=== PATIENT | female | born 1930 | race Caucasian/White ===

== ENCOUNTER → 2016-06-14 | Outpatient (CLI) | payer BC, MEDICARE ==
--- NOTE | 2016-06-15 07:19 | RAD ---
EXAM DESCRIPTION: XR HAND 3 OR MORE VIEWS CLINICAL HISTORY: RAISED ANTIBODY TITER COMPARISON: None available FINDINGS: Three views of the left hand were obtained period no acute fracture or malalignment is identified period there is joint space narrowing and productive change involving multiple interphalangeal joints. Similar changes are noted at the triscaphe and 1st CMC joints. No lytic or sclerotic bone lesion is identified period the bones appear demineralized period there is some calcification at the triangular fibrocartilage complex suggestive of chondrocalcinosis period IMPRESSION: Moderate polyarticular degenerative changes, but no erosion, subluxation or soft tissue swelling. Chondrocalcinosis involving the triangular fibrocartilage complex, also likely of degenerative origin. Electronically signed by: Declan Pulido DO 06/15/2016 07:17
--- NOTE | 2016-06-15 07:23 | RAD ---
EXAM DESCRIPTION: XR HAND 3 OR MORE VIEWS CLINICAL HISTORY: RAISED ANTIBODY TITER COMPARISON: None available FINDINGS: Three views of the right hand were obtained period there is no acute fracture or malalignment period joint space narrowing and productive change involves several interphalangeal joints, with similar changes noted at the triscaphe and 1st CMC joints. Periarticular soft tissue calcification is noted at the 1st and 2nd MCP joints period there questionable tiny erosions involving the bases of the proximal phalanges of the same fingers. Calcification involving the triangular fibrocartilage complex suggests chondrocalcinosis. The bones are diffusely demineralized period IMPRESSION: Moderate to moderately advanced polyarticular degenerative changes with tiny erosions in the bases of the proximal phalanges of the 2nd and 3rd fingers suggesting the possibility of superimposed inflammatory type arthritis. Chondrocalcinosis involving the triangular fibrocartilage complex and periarticular soft tissue calcification involving the 2nd and 3rd MCP joints, nonspecific. Findings may be related to underlying degenerative joint disease, but the possibility of gout or pseudogout should also be considered. Electronically signed by: Declan Pulido DO 06/15/2016 07:21
--- NOTE | 2016-06-15 07:24 | RAD ---
EXAM DESCRIPTION: XR KNEE 4 OR MORE VIEWS CLINICAL HISTORY: RAISED ANTIBODY TITER COMPARISON: None available FINDINGS: Three views of the left knee show no acute fracture or malalignment period there is mild medial joint space narrowing. No left knee joint effusion is identified period the soft tissues are unremarkable. There is no lytic or sclerotic bone lesion period IMPRESSION: Mild degenerative changes, otherwise unremarkable exam. Electronically signed by: Declan Pulido DO 06/15/2016 07:23
--- NOTE | 2016-06-15 07:26 | RAD ---
EXAM DESCRIPTION: XR KNEE 4 OR MORE VIEWS CLINICAL HISTORY: RAISED ANTIBODY TITER COMPARISON: None available FINDINGS: Three views of the right knee show no acute fracture or malalignment period there is no right knee joint effusion period vascular calcifications are noted period there is mild to moderate medial joint space narrowing period tiny osteophytes arise from the superior and inferior patellar poles. There is subtle chondrocalcinosis in the lateral compartment period IMPRESSION: Degenerative changes, worse in the medial compartment, but no acute right knee abnormality. Subtle chondrocalcinosis which may also be related to underlying degenerative joint disease, but gout or pseudogout should also be considered. Electronically signed by: Declan Pulido DO 06/15/2016 07:24
== END ==
LOC: RAD 15:12
PROVIDERS: ATTEND Internal Medicine Rheumatology
DX: R76.0 Raised antibody titer (principal); M11.261 Other chondrocalcinosis, right knee; M11.242 Other chondrocalcinosis, left hand; M11.241 Other chondrocalcinosis, right hand; M12.862 Other specific arthropathies, not elsewhere classified, left knee; M12.861 Other specific arthropathies, not elsewhere classified, right knee; M12.842 Other specific arthropathies, not elsewhere classified, left hand; M12.841 Other specific arthropathies, not elsewhere classified, right hand

== ENCOUNTER → 2016-09-07 | Outpatient (CLI) | payer BC, MEDICARE | END | disposition home or self-care (01) | LOC: GMAB 16:37 | PROVIDERS: ATTEND Family Medicine | DX: R06.02 Shortness of breath (principal) ==

== ENCOUNTER → 2016-11-07 | Outpatient (CLI) | payer MEDICARE, BC | END | disposition home or self-care (01) | LOC: GMAB 10:26 | PROVIDERS: ATTEND Family Medicine | DX: E55.9 Vitamin D deficiency, unspecified (principal) ==

== ENCOUNTER 2016-12-31 12:22 | Inpatient (IN) | payer BC, MEDICARE ==
[2016-12-31] MEDS ORDERED: SODIUM CHLORIDE 0.9% 1000ML 1,000 ML IVS ONE (13:00)
[2016-12-31] MEDS ORDERED: ACETAMINOPHEN 325 MG TAB PO ONE (13:00)
--- NOTE | 2016-12-31 13:59 | CT ---
PROCEDURE: Head HISTORY: ams Indication: Same as above Comparison: None Technique: CT of the head was done without intravenous contrast was done in the axial plane only This exam was performed according to our departmental dose-optimization program, which includes automated exposure control, adjustment of the mA and/or KV according to the patient's size and/or use of iterative reconstruction technique. FINDINGS: There is no intracranial hemorrhage, midline shift mass effect or acute focal infarct. There is prominence of the sylvian fissures and the cortical sulci reflecting age related volume loss. There is periventricular and deep white matter low attenuation, most likely related to small vessel white matter ischemic disease. Intracranial vascular calcifications are seen. If clinical concern exists regarding an acute ischemic/vascular pathology being responsible for patient's symptomatology, an MRI of the brain is more sensitive than the current study, in ruling out such a possibility. There is good shell/white matter differentiation. The ventricular system is normal. The mastoid air cells are unremarkable . The paranasal sinuses are unremarkable . There is no visualization of acute fractures involving the calvarium or the skull base. IMPRESSION: There is no acute intracranial abnormality. Age related and chronic involutional changes are seen. Electronically signed by: Eduardo Miles MD 12/31/2016 1:58 PM CDT Workstation: [id number]
--- NOTE | 2016-12-31 14:09 | RAD ---
PROCEDURE: XR CHEST 1 VIEW HISTORY: fever, ams, sob COMPARISON: 05/03/2012 TECHNIQUE: Single projection of the chest was done. FINDINGS: Surgical jessica are seen in the bilateral axillary regions. There is presence of diffuse infiltrates in the right hemithorax in a perihilar distribution and presence of thickening of the right horizontal fissure . There are no pneumothoraces or pleural effusions. The pulmonary vascularity is normal. The cardiomediastinal silhouette is stable. IMPRESSION: There is presence of diffuse infiltrates in the right hemithorax in a perihilar distribution and presence of thickening of the right horizontal fissure . Electronically signed by: Eduardo iMles MD 12/31/2016 2:07 PM CDT Workstation: [id number]
[2016-12-31] MEDS ORDERED: cefTRIAXone SODIUM 1 GM in SODIUM CHL 0.9% 50ML MIN-BAG+ 50 ML IVPB ONE ×2 (14:24→19:54)
[2016-12-31] MEDS ORDERED: AZITHROMYCIN IV 500 MG in SODIUM CHLORIDE 0.9% 250ML 250 ML IVPB ONE (14:25)
[2016-12-31] MEDS ORDERED: cefTRIAXone SODIUM 1 GM VIAL ONE (14:43)
[2016-12-31] MEDS ORDERED: SODIUM CHL 0.9% 50ML MIN-BAG+ 50 ML IVPB ONE (14:44)
--- NOTE | 2016-12-31 16:28 | HP ---
SUPERVISING PHYSICIAN: Krystian Iraheta MD CHIEF COMPLAINT: Dizziness, acute mental status change/ HISTORY OF PRESENT ILLNESS: Ms. Shields is an 86 year-old female patient who lives at home that presented to the Emergency Department tonight after she started having some dizziness throughout the day about 8 o'clock this morning along with some diarrhea and confusion. EMS was called to the house to transfer the patient to the Emergency Department after family noted the patient was continuing to deteriorate and was becoming weaker as well as she was running a fever reported as 102 at home. The family called her home health nurse who suggested that she go to the Emergency Department. Upon arrival of EMS, the patient reported that she was having significant shortness of breath and had apparently' been taking her breathing treatments over 10 times at home today. In the Emergency Department, laboratory studies completed showed she had a white count of 4.5, hemoglobin 10.9, hematocrit 33.5, platelet count 141,000, differential was currently without a left shift. 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 Chemistries showed normal electrolytes with potassium 3.8, glucose 99, potassium 8.7, magnesium 2.0. Liver functions showed to be within normal limits. Her CK was 17, BNP 489. Urinalysis showed just a trace of leukoesterase with a moderate amount of blood , 5 to 10 WBCs. Flu swab was negative for A and B. Blood cultures completed. Radiographic studies were completed showing she had a large infiltrate on the right side concerning for pneumonia. She also had a CT of the head without contrast and per radiology interpretation there was no mention of any acute intracranial abnormalities. On arrival to the Emergency Department, her vital signs showed she was febrile with a temperature of 102.3. She was given Tylenol that did result in return of temperature to normal baseline, 97.3. Given the patient's multiple comorbidities and findings on radiographic studies indicated developing pneumonia, right side, with the patient running a significant fever, antibiotics were initiated including azithromycin and Rocephin after blood cultures were completed and out, she will be admitted to the medical/surgical floor for further treatment and evaluation for developing right-sided pneumonia and acute mental status change. The patient is on chronic 02. PAST MEDICAL HISTORY: 1. Right and left breast cancer with bilateral mastectomies. 2. Hypertension. 3. History of gout. 4. History of gastroesophageal reflux disease. 5. History of chronic kidney disease, stage 1. 6. Type 2 diabetes on oral therapy. 7. Hyperlipidemia. 8. History of tobacco abuse. 9. History of deep venous thrombosis within the small vein of the left lower extremity. 10. 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 11. Congestive heart failure with mild diastolic dysfunction with last echocardiogram noted in October 2016 with greater than 55% ejection fraction. PAST SURGICAL HISTORY: 1. Right and left mastectomies. 2. Previous right subclavian port placement. 3. Hysterectomy. 4. Tonsillectomy as a child. 5. Adenoidectomy. 6. Cholecystectomy. 7. Left hip reduction and internal fixation. 8. Back surgery. 9. Partial thyroidectomy. CURRENT MEDICATIONS: 1. Eliquis 5 mg twice a day. 2. Allopurinol 300 mg every other day. 3. Metoprolol succinate 4.5 mg twice a day. 4. Norvasc 2.5 mg daily. 5. Januvia 50 mg daily. 6. Protonix 40 mg, 1 tablet daily. 7. Aspirin 81 mg at bedtime. 8. Amitriptyline 50 mg at bedtime. 9. Losartan 80 mg twice a day. 10. Prednisone 5 mg at noon. 11. Gabapentin 100 mg twice a day. 12. Amiodarone 200 mg at noon. ALLERGIES: PENICILLIN-G, LEVAQUIN. FAMILY HISTORY: Noncontributory. SOCIAL HISTORY: The patient lives in [place]. She is . She has no history of tobacco or alcohol usage. REVIEW OF SYSTEMS: CONSTITUTIONAL: As noted in history of present illness. Some general malaise with fever and chills. HEENT: Denies headaches, vision changes, syncopal episodes, sore throats. CHEST: Has noted in history of present illness, shortness of breath. CARDIOVASCULAR: Denies chest pains, palpitations. GASTROINTESTINAL: No reported constipation but as in history of present illness noted diarrhea but no nausea or vomiting. GENITOURINARY: Denies dysuria, hematuria, polyuria or other urinary symptoms. NEUROLOGICAL: As noted in history of present illness, she has had some dizziness and some acute mental status change or giddiness but no reported acute neurological deficits. PHYSICAL EXAMINATION: VITAL SIGNS: Initially in the Emergency Department temperature was 102.3, pulse 76, blood pressure 154/51, respirations 16, saturation 95% on room air. Admission weight 62.3 kg. GENERAL: On admission to the medical/surgical floor the patient appeared to be in no acute distress. She was alert and oriented, appears to be well- nourished, a little dehydrated. HEENT: Tympanic membranes are clear bilaterally. Oropharynx pink with mucous membranes being dry. No lesions noted. NECK: Supple, non-tender, full range of motion with no jugular venous distention. CHEST: Lungs diminished bilaterally, more so on the right than the left with just very faint rhonchi heard on the right lateral posterior aspect, no wheezing or rales noted. CARDIOVASCULAR: Regular rate and rhythm. ABDOMEN: Soft, non-tender, positive bowel sounds. EXTREMITIES: 1+ pitting edema on the left with maybe 2+ on the right which according to family and patient is normal for her and actually a little bit better than baseline in the past which is due secondary to the previous DVT that are present in each leg. NEUROLOGIC: Cranial nerves II through XII are grossly intact. Facial features were symmetrical. Extraocular movements were within normal limits. There was no nystagmus noted. No reported sensory or motor deficits. She does use a walker at home. LABORATORY: CBC showed a white count of 4.5, hemoglobin 10.9, hematocrit 33.5 with normal platelet count of 141,000. Differential showed to be without a left shift. Coagulation studies showed a slightly elevated PT of 20.4 with INR of 1.8 with PTT of 33.3. Chemistries showed normal electrolytes with potassium of 3.8, BUN 10, creatinine 0.76, glucose 99. Liver functions showed to be within normal limits. BNP elevated at 489. Troponin less than 0.02. Urinalysis showed a moderate amount of blood on dipstick with trace leukoesterase and microscopic revealed only 5 to 10 RBC, no bacteria, no WBCs. MICROBIOLOGY: Flu swabs for A and B were negative. She has 2 sets of blood cultures pending. Sputum cultures pending. RADIOLOGY: Single view chest x-ray in the Emergency Department showed presence of diffuse intertrochanteric in the right hemothorax in a perihilar distribution and presence of thickening of the right horizontal fissure per radiology interpretation. She also had a CT of the head without contrast and per radiology interpretation there were no acute intracranial abnormalities noted. ASSESSMENT: 1. Right middle and lower lobe pneumonia, community acquired in a immunocompromised patient with a decreased white count. 2. Early sepsis with a fever, shortness of breath secondary to #1. 3. Metabolic encephalopathy secondary to early sepsis secondary to developing community acquired pneumonia. 4. Normocytic normochromic anemia, likely due to chronic illness. 5. 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 Frias. 6. Chronic congestive heart failure with diastolic dysfunction, with etiology. likely secondary to mild form of hypertension with last echocardiogram in October 2016 showing an elevated PA systolic pressure and a mild diastolic dysfunction. 7. History of gout. 8. Type 2 diabetes mellitus on oral therapy. 9. History of bilateral breast cancer with mastectomies. 10. Hypertension. 11. Dehydration. PLAN: The patient will be admitted to the medical/surgical floor for continued treatment and evaluation for a developing right-sided pneumonia and early sepsis. She was given IV fluids in the Emergency Department and started on IV antibiotics to include azithromycin and Rocephin. It was noted prior to admission from the Emergency Department her IV infiltrated while she was having infusion of Rocephin and apparently of a large infiltration process covering the majority of her forearm which edges have been marked with markers showing area of erythema but no outright allergic reaction. She is allergic to penicillin. There was mention to possible allergy to cephalosporins but I think at this point it is just a local reaction due to the infiltrative process. She is also has an allergy to Levaquin, therefore, I think it is prudent to try to utilize cephalosporins including Rocephin once again on next dose with close observation. Certainly if she shows no signs or symptoms or systemic response, continue with her antibiotic therapy and await sputum cultures. We will start her on some IV fluids, slow given her history of congestive heart failure and monitor her I&Os closely. In regards to DVT prophylaxis, she is already on Eliquis and given that she has bilateral lower extremity DVTs, will forego any SCDs and encourage ambulation. Will utilize oxygen as she is 02 dependent and titrate to maintain 02 saturations that are adequate, at least greater than 92%. Will anticipate length of stay to be 2 to 3 days with reevaluation in the morning of chemistries and hematology. A lactic acid wasn't performed in the Emergency Department prior to initiation of antibiotic therapy from before the patient was admitted to the floor. The patient shows to be stable, therefore, we will forego collection of a lactic acid at this point. Should she show any change in condition, certainly we will again monitor lactic acids given that she has an underlying sepsis process but at this point, with fluids that were given in the Emergency Room the patient has shown an improvement in her mental status as well as maintaining blood pressure, a good heart rate, Tylenol for her fevers. Once stable, the patient certainly could be discharged to continue with outpatient treatment plan and have close clinical followup with Dr. Boyce, her primary care physician. Until discharge, we will continue to monitor her and treat appropriately. #[id number] [facility]
[2016-12-31] MEDS ORDERED: AZITHROMYCIN IV 500 MG VIAL IVPB ONE (16:56)
[2016-12-31] MEDS ORDERED: SODIUM CHLORIDE 0.9% 250ML 250 ML ONE (16:56)
[2016-12-31] MEDS ORDERED: MAGNESIUM HYDROXIDE 30 ML UD PO PRN (18:26)
[2016-12-31] MEDS ORDERED: ONDANSETRON INJ 4 MG/2 ML VIAL IV PRN (18:26)
[2016-12-31] MEDS ORDERED: ALBUTEROL SULFATE 2.5 MG/3 ML VIAL NEB PRN (18:26)
[2016-12-31] MEDS ORDERED: ACETAMINOPHEN 325 MG TAB PO PRN (18:26)
[2016-12-31] MEDS ORDERED: SODIUM CHLORIDE 0.9% (FLUSH) 10 ML SYG IV PRN (18:26)
--- NOTE | 2016-12-31 18:35 | PCM.CORE ---
Physician DVT/VTE - Nurse DVT Assessment & Total Each Risk Factor Represents 3 Points: Age over 75 years, Hx of DVT/PE Each Risk Factor is 1 Point: Obesity (BMI >25), Serious Lung disease (pnemonia < 1month, COPD, emphysema,etc) DVT Assessment Score: 8 - 5 or more Very High Risk Treatments: Early Ambulation *, Sequential Compression Device Pharmacological: Enoxaparin 40mg SQ Daily
[2016-12-31] MEDS ORDERED: ENOXAPARIN SODIUM 40 MG/0.4 ML SYG SUBCU ONE (19:36)
[2016-12-31] MEDS ORDERED: DEXTROSE 50% 25 GM/50 ML SYG IV PRN (19:43)
[2016-12-31] MEDS ORDERED: GLUCAGON INJ 1 MG VIAL SUBCU PRN (19:43)
[2016-12-31] MEDS ORDERED: IPRATROPIUM/ALBUTEROL 3 ML VIAL INH SCH (20:00)
[2016-12-31] MEDS ORDERED: AMITRIPTYLINE HCL 25 MG TAB ONE (20:59)
[2016-12-31] MEDS ORDERED: NON-FORMULARY MEDICATION 1 EA MIS (Apixaban [Eliquis] 5 MG) PO SCH (21:00)
[2016-12-31] MEDS ORDERED: AMITRIPTYLINE HCL 50 MG PO SCH (21:00)
[2016-12-31] MEDS ORDERED: ENOXAPARIN SODIUM 40 MG/0.4 ML SYG SUBCU SCH (21:00)
[2016-12-31] MEDS ORDERED: APIXABAN 2.5 MG TAB PO ONE (21:00)
[2016-12-31] MEDS: predniSONE 5 MG TAB PO SCH (21:13)
[2016-12-31] MEDS: ASPIRIN EC 81 MG TAB PO SCH (21:13)
[2016-12-31] MEDS: METOPROLOL SUCCINATE XL 25 MG TAB PO SCH (21:13)
[2016-12-31] MEDS: GABAPENTIN 100 MG CAP PO SCH (21:13)
[2016-12-31] MEDS: AMIODARONE HCL 200 MG TAB PO SCH (21:13)
[2016-12-31] MEDS: VALSARTAN 80 MG TAB PO SCH (21:13)
[2016-12-31] MEDS: INSULIN LISPRO 100 UNITS/ML PEN SUBCU SCH (21:14)
[2017-01-01] MEDS: PANTOPRAZOLE SODIUM IV 40 MG VIAL IV SCH (06:22)
[2017-01-01] MEDS: INSULIN LISPRO 100 UNITS/ML PEN SUBCU SCH ×4 (07:27→21:38)
[2017-01-01] MEDS ORDERED: POTASSIUM CHLORIDE 10 MEQ TAB PO ONE (07:39)
[2017-01-01] MEDS ORDERED: CALCIUM CARBONATE-VITAMIN D 500 MG TAB ONE (07:39)
--- NOTE | 2017-01-01 07:49 | RAD ---
Clinical History : Pneumonia , MAIN Exam : PA and lateral views of the chest 01/01/2017 7:00 AM CDT Comparisons : Portable AP view of the chest December 31, 2016 Findings : There is right lower lobe airspace disease with small bilateral pleural effusions. . The heart is stable in size. The mediastinal contours are normal in appearance. There are vascular calcifications along the aortic arch. The thoracic spine is age appropriate. The shoulders are unremarkable. Limited evaluation of the upper abdomen demonstrates no gross abnormalities. Impression: Stable right lower lobe airspace disease with small bilateral pleural effusions. Electronically signed by: Demetrio Dennison MD 01/01/2017 7:48 AM CDT
[2017-01-01] MEDS: IPRATROPIUM/ALBUTEROL 3 ML VIAL NEB SCH ×4 (08:52→19:46)
[2017-01-01] MEDS: VALSARTAN 80 MG TAB PO SCH ×2 (09:34→20:22)
[2017-01-01] MEDS: amLODIPine BESYLATE 5 MG TAB PO SCH (09:34)
[2017-01-01] MEDS: SITagliptin 50 MG TAB PO SCH (09:35)
[2017-01-01] MEDS: GABAPENTIN 100 MG CAP PO SCH ×2 (09:35→20:22)
[2017-01-01] MEDS: APIXABAN 2.5 MG TAB PO SCH ×2 (09:35→20:22)
[2017-01-01] MEDS: SODIUM CHLORIDE 0.9% (FLUSH) 10 ML SYG IV SCH ×2 (09:36→20:35)
[2017-01-01] MEDS: predniSONE 5 MG TAB PO SCH (12:21)
[2017-01-01] MEDS: AMIODARONE HCL 200 MG TAB PO SCH (12:21)
[2017-01-01] MEDS: METOPROLOL SUCCINATE XL 25 MG TAB PO SCH ×2 (12:27→20:28)
[2017-01-01] MEDS: IV SET AND CAP CHANGE INJ INJ SCH (12:28)
[2017-01-01] MEDS ORDERED: cefTRIAXone SODIUM 1 GM in SODIUM CHL 0.9% 50ML MIN-BAG+ 50 ML IVPB SCH (14:00)
[2017-01-01] MEDS ORDERED: SODIUM CHLORIDE 0.9% 250ML 250 ML ONE ×2 (15:20→15:30)
[2017-01-01] MEDS ORDERED: AZITHROMYCIN IV 500 MG VIAL IVPB ONE (15:21)
[2017-01-01] MEDS: methylPREDNISolone SODIUM SUC 125 MG/2 ML VIAL IV SCH ×2 (15:36→23:34)
[2017-01-01] MEDS: AZITHROMYCIN IV 500 MG in SODIUM CHLORIDE 0.9% 250ML 250 ML IVPB SCH (15:37)
--- NOTE | 2017-01-01 16:22 | PN ---
SUPERVISING PHYSICIAN: Krystian Iraheta MD DATE: 01/01/17 SUBJECTIVE: The patient is sitting in her hospital bed. She is visiting with family. She has no complaints of shortness of breath, chest pain, nausea, vomiting, diarrhea. She complains of a mild cough and she does get short of breath when she tries to get out of bed but other than that she has no shortness of breath at rest. OBJECTIVE: VITAL SIGNS: T-max 24 hours is 101.5 Pulse rate 68, blood pressure 160/57, respiratory rate 20. O2 saturation 92%. CHEST: Scattered rhonchi throughout. She does have an expiratory wheeze in the right upper and right lower lobe. CARDIAC: Regular rate and rhythm. ABDOMEN: Soft, non-tender, nondistended, bowel sounds are positive. EXTREMITIES: No cyanosis, clubbing, or edema. NEUROLOGICAL: She is awake, alert, and oriented x3. LABORATORY: WBC slightly down to 3.8. Hemoglobin and hematocrit are stable at 10.4 and 31.8. Platelet count 125,000. PT is 20.4, INR 1.8. PTT 33.3. Blood sugars have ranged between 127 and 146. Electrolytes are basically within normal limits. Urine culture is pending. Her preliminary blood cultures show no growth after 24 hours. Chest x-ray per radiology interpretation is stable, right lower lobe air-space disease with small bilateral pleural effusions. All other labs and films have been reviewed via the EMR. ASSESSMENT: 1. Right middle and lower lobe pneumonia, community acquired in a immunocompromised patient with a decreased white count. 2. Early sepsis with a fever, shortness of breath secondary to #1. 3. Metabolic encephalopathy secondary to early sepsis secondary to developing community acquired pneumonia. 4. Normocytic normochromic anemia, likely due to chronic illness. 5. 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 Frias. 6. Chronic congestive heart failure with diastolic dysfunction, with etiology. likely secondary to mild form of hypertension with last echocardiogram in October 2016 showing an elevated PA systolic pressure and a mild diastolic dysfunction. 7. History of gout. 8. Type 2 diabetes mellitus on oral therapy. 9. History of bilateral breast cancer with mastectomies. 10. Hypertension. 11. Dehydration. PLAN: We will continue present supportive care. I have ordered a chest x- ray and lab in the morning. I have also added a small amount of steroids that we can taper over the next few days. I have ordered an ambulation study for in the morning. She will continue on Zithromycin until her cultures are available. We will monitor the patient closely and followup as needed. Dr. Iraheta is the collaborating physician and available for consultation. #[id number] [facility]
[2017-01-01] MEDS ORDERED: AMITRIPTYLINE HCL 25 MG TAB ONE (19:36)
[2017-01-01] MEDS: AMITRIPTYLINE HCL 25 MG TAB PO SCH (20:23)
[2017-01-01] MEDS: ASPIRIN EC 81 MG TAB PO SCH (20:28)
[2017-01-02] MEDS: PANTOPRAZOLE SODIUM IV 40 MG VIAL IV SCH (06:37)
--- NOTE | 2017-01-02 07:22 | RAD ---
EXAM DESCRIPTION: Chest,2 Views CLINICAL HISTORY: pna COMPARISON: January 01, 2017 and an older exam from May 03, 2012 FINDINGS: The cardiomediastinal silhouette is unremarkable. Again seen is some ill-defined alveolar opacity in the mid and lower right lung, stable. There is mild blunting of the costophrenic angles bilaterally, also stable. Subsegmental atelectasis or scarring is noted in the left lung base. There is no new airspace consolidation. Surgical clips are noted in the chest wall bilaterally. No fracture or pneumothorax. IMPRESSION: Abnormal appearance of the lung bases partially related to artifact from superimposed soft tissues and/or scarring, but pneumonia or edema in one or both lung bases is suspected. Overall, no significant change from yesterday's exam. Small bilateral pleural effusions versus pleural thickening or scarring, stable from yesterday.. Electronically signed by: Declan Pulido MD 01/02/2017 7:21 AM CDT Workstation: [id number]
[2017-01-02] MEDS: methylPREDNISolone SODIUM SUC 125 MG/2 ML VIAL IV SCH ×3 (08:00→23:20)
[2017-01-02] MEDS: IPRATROPIUM/ALBUTEROL 3 ML VIAL NEB SCH ×4 (08:50→20:07)
[2017-01-02] MEDS: INSULIN LISPRO 100 UNITS/ML PEN SUBCU SCH ×4 (09:18→21:30)
[2017-01-02] MEDS: VALSARTAN 80 MG TAB PO SCH ×2 (09:20→21:28)
[2017-01-02] MEDS: GABAPENTIN 100 MG CAP PO SCH ×2 (09:24→21:28)
[2017-01-02] MEDS: amLODIPine BESYLATE 5 MG TAB PO SCH (09:24)
[2017-01-02] MEDS: SITagliptin 50 MG TAB PO SCH (09:24)
[2017-01-02] MEDS: APIXABAN 2.5 MG TAB PO SCH ×2 (09:24→21:28)
[2017-01-02] MEDS: METOPROLOL SUCCINATE XL 25 MG TAB PO SCH ×2 (10:06→21:29)
[2017-01-02] MEDS: SODIUM CHLORIDE 0.9% (FLUSH) 10 ML SYG IV SCH (10:07)
[2017-01-02] MEDS: ALLOPURINOL 300 MG TAB PO SCH (10:11)
[2017-01-02] MEDS: predniSONE 5 MG TAB PO SCH (11:50)
[2017-01-02] MEDS: AMIODARONE HCL 200 MG TAB PO SCH (11:50)
--- NOTE | 2017-01-02 13:37 | PN ---
SUPERVISING PHYSICIAN: Mahesh Schultz MD DATE: 01/02/17 SUBJECTIVE: The patient is sitting up in her hospital bed. She complains of some shortness of breath with exertion, but otherwise denies chest pain, nausea , vomiting, diarrhea. Her family is at bedside. We discussed at length her followup with her aws developer, which is next week, as well as her recent office visit with her tube fitter, Dr. Olosn. OBJECTIVE: VITAL SIGNS: Afebrile. Heart rate 66. Blood pressure 168/73. Respiratory rate 18. O2 saturation 94% on 2 liters nasal cannula. LUNGS: Somewhat diminished at the bases, but otherwise clear to auscultation at the apices. CARDIAC: Regular rate and rhythm. ABDOMEN: Soft, nontender, nondistended. Bowel sounds are positive. EXTREMITIES: No cyanosis, clubbing or edema. NEUROLOGIC: Awake, alert and oriented times three. LABORATORY: WBC 2.8, hemoglobin and hematocrit are stable at 10.4 and 31.9, platelet count 124. Blood sugars have run between 146 and 305. Electrolytes are within normal limits. Serum total protein 6.1, albumin 3. Preliminary urine culture shows gram negative rods. Preliminary blood cultures show no growth after 24 hours. Chest x-ray per radiologic interpretation shows abnormal appearance of the lung bases partially related to artifact from superimposed soft tissue and/or scarring, but pneumonia or edema in one or both lung bases is suspected. Overall, no significant changes from yesterday's exam with a small bilateral pleural effusion versus pleural thickening or scarring, stable from yesterday. All other labs and films have been reviewed via the EMR. ASSESSMENT: 1. Right middle and lower lobe pneumonia, community acquired in an immunocompromised patient with a decreased white count. 2. Early sepsis with a fever, shortness of breath secondary to #1. 3. Metabolic encephalopathy secondary to early sepsis secondary to developing community acquired pneumonia. 4. Normocytic normochromic anemia, likely due to chronic illness. 5. 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 Frias. 6. Chronic congestive heart failure with diastolic dysfunction, with etiology. likely secondary to mild form of hypertension with last echocardiogram in October 2016 showing an elevated PA systolic pressure and a mild diastolic dysfunction. 7. History of gout. 8. Type 2 diabetes mellitus on oral therapy. 9. History of bilateral breast cancer with mastectomies. 10. Hypertension. 11. Dehydration. PLAN: We will continue present supportive care. I have spoken to Dr. Olson's nurse practitioner and she recommended we continue with present treatment and to aggressively treat her pneumonia. The patient has an appointment a aws developer in [place] next week. I have spoken to the family at length about keeping that appointment. She is continuing on her Zithromax, but I have added Merrem for the urinary tract infection and we will await the sensitivities. Hopefully she can be discharged home on some Zithromax and an oral antibiotic for the urinary tract infection. We have encouraged to good pulmonary hygiene. I have ordered routine labs for in the morning as well as a chest x-ray. We will continue to monitor the patient closely and followup as needed. Dr. Schultz is the collaborating physician and available for consultation. #[id number] [facility]
[2017-01-02] MEDS ORDERED: SODIUM CHL 0.9% 50ML MIN-BAG+ 50 ML IVPB ONE (14:56)
[2017-01-02] MEDS ORDERED: MEROPENEM 1 GM VIAL IVPB ONE (14:56)
[2017-01-02] MEDS: MEROPENEM 1 GM in SODIUM CHL 0.9% 50ML MIN-BAG+ 50 ML IVPB SCH (15:11)
[2017-01-02] MEDS ORDERED: SODIUM CHLORIDE 0.9% 250ML 250 ML ONE (16:09)
[2017-01-02] MEDS ORDERED: AZITHROMYCIN IV 500 MG VIAL IVPB ONE (16:09)
[2017-01-02] MEDS: AZITHROMYCIN IV 500 MG in SODIUM CHLORIDE 0.9% 250ML 250 ML IVPB SCH (16:42)
[2017-01-02] MEDS: ASPIRIN EC 81 MG TAB PO SCH (21:28)
[2017-01-02] MEDS: diphenhydrAMINE HCL 50 MG/ML VIAL IV PRN (21:28)
[2017-01-02] MEDS: AMITRIPTYLINE HCL 25 MG TAB PO SCH (21:29)
[2017-01-03] MEDS ORDERED: SODIUM CHL 0.9% 50ML MIN-BAG+ 50 ML IVPB ONE (03:10)
[2017-01-03] MEDS ORDERED: MEROPENEM 1 GM VIAL IVPB ONE (03:11)
[2017-01-03] MEDS: MEROPENEM 1 GM in SODIUM CHL 0.9% 50ML MIN-BAG+ 50 ML IVPB SCH (03:15)
[2017-01-03] MEDS: diphenhydrAMINE HCL 50 MG/ML VIAL IV PRN (03:15)
[2017-01-03] MEDS: PANTOPRAZOLE SODIUM TAB 40 MG PO SCH (06:49)
--- NOTE | 2017-01-03 07:46 | RAD ---
EXAM DESCRIPTION: Chest,1 View CLINICAL HISTORY: pna COMPARISON: January 01, 2017 FINDINGS: The cardiomediastinal silhouette is unremarkable. There is new ill-defined alveolar opacity in the mid and lower right lung suspicious for pneumonia. Questionable trace amount of right pleural fluid. There is a probable small left-sided effusion with overlying atelectasis and/or consolidation in the left lung base, stable. Postoperative changes are noted in the chest wall bilaterally. There is no pneumothorax or acute fracture. IMPRESSION: New airspace consolidation in the mid and lower right lung consistent with provided history of pneumonia with a possible tiny right-sided effusion. Edema should also be considered. Abnormal appearance of the left lung base also represent either pneumonia or edema, stable. Electronically signed by: Declan Pulido MD 01/03/2017 7:28 AM CDT Workstation: [id number]
[2017-01-03] MEDS: INSULIN LISPRO 100 UNITS/ML PEN SUBCU SCH ×4 (08:54→21:55)
[2017-01-03] MEDS: SODIUM CHLORIDE 0.9% (FLUSH) 10 ML SYG IV SCH ×3 (08:56→21:00)
[2017-01-03] MEDS: methylPREDNISolone SODIUM SUC 125 MG/2 ML VIAL IV SCH ×2 (08:57→09:43)
[2017-01-03] MEDS: METOPROLOL SUCCINATE XL 25 MG TAB PO SCH ×2 (08:57→20:31)
[2017-01-03] MEDS: APIXABAN 2.5 MG TAB PO SCH ×2 (08:57→20:32)
[2017-01-03] MEDS: GABAPENTIN 100 MG CAP PO SCH ×2 (08:58→20:32)
[2017-01-03] MEDS: VALSARTAN 80 MG TAB PO SCH ×2 (08:58→20:31)
[2017-01-03] MEDS: SITagliptin 50 MG TAB PO SCH (08:58)
[2017-01-03] MEDS: amLODIPine BESYLATE 5 MG TAB PO SCH (08:58)
[2017-01-03] MEDS: IPRATROPIUM/ALBUTEROL 3 ML VIAL NEB SCH ×4 (08:59→20:07)
[2017-01-03] MEDS ORDERED: methylPREDNISolone SODIUM SUC 40 MG/ML VIAL IV SCH (09:30)
[2017-01-03] MEDS ORDERED: FUROSEMIDE INJ 40 MG/4 ML VIAL IV ONE (09:47)
--- NOTE | 2017-01-03 09:52 | PN ---
SUPERVISING PHYSICIAN: Mahesh Schultz MD DATE: 01/03/17 SUBJECTIVE: The patient is sitting up in the chair in her hospital room. Her is at the bedside. She denies any shortness of breath, nausea, vomiting , diarrhea or chest pain. We discussed her plan of care and that we will be changing her to oral antibiotics and she is to see her fusion juncture grinder next week. OBJECTIVE: VITAL SIGNS: Afebrile. Heart rate 62. Blood pressure 172/72. Respiratory rate 14. O2 sat dropped to 85% on room air this morning and is now 98% on 2 liters nasal cannula. LUNGS: Essentially clear to auscultation bilaterally, somewhat diminished at the bases. CARDIAC: Regular rate and rhythm. ABDOMEN: Soft, nontender, nondistended. Bowel sounds are positive. EXTREMITIES: No cyanosis, clubbing or edema. NEUROLOGIC: Awake, alert and oriented times three. LABORATORY: White count is improved to 4.1. Hemoglobin and hematocrit are slightly decreased to 9.5 and 29.4. Platelet count 117. Blood sugars have run between 185 and 305. Electrolytes are basically within normal limits. Urine C& S is back and shows E. coli and it is sensitive to Merrem, which she is presently on. Her preliminary blood cultures show no growth after 48 hours. Chest x-ray per radiologic interpretation shows new airspace consolidation in the mid and right lower lung consistent with provided history of pneumonia with a possible tiny right sided effusion. Edema should also be considered. Abnormal appearance of the left lung base also represents either pneumonia or edema that is stable. All other labs and films have been reviewed via the EMR. ASSESSMENT: 1. Right middle and lower lobe pneumonia, community acquired, in an immunocompromised patient with a decreased white count, but with slight improvement. 2. Early sepsis with a fever, shortness of breath secondary to #1, now improved.. 3. Urinary tract infection showing Escherichia coli that is presently sensitive to Merrem as well as Bactrim. She will be changed to p.o. Bactrim. 4. Metabolic encephalopathy secondary to early sepsis, now resolved. 5. Normocytic/normochromic anemia, most likely due to chronic disease process. 6. 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 Frias, and sap bods developer, Dr. Olson. 7. Chronic congestive heart failure with diastolic dysfunction, with etiology. likely secondary to mild form of hypertension with last echocardiogram in October 2016 showing an elevated PA systolic pressure and a mild diastolic dysfunction. 8. History of gout. 9. Type 2 diabetes mellitus on oral therapy. 10. History of bilateral breast cancer with mastectomies. 11. Hypertension. 12. Dehydration. PLAN: We will continue present supportive care. She is clinically much better. I have tapered her steroids. I have discontinued the Merrem and started her on po Bactrim. I have also changed her IV Zithromax to oral therapy. I will give her a dose of Lasix. I will repeat her lab and x-rays in the morning. Continue to encourage good pulmonary hygiene. Physical therapy is presently working with her and hopefully she can be discharged tomorrow. Dr. Schultz is the collaborating physician and available for consultation. #[id number] [facility]
[2017-01-03] MEDS ORDERED: FUROSEMIDE INJ 40 MG/4 ML VIAL ONE (09:56)
[2017-01-03] MEDS: SULFA/TRIMETH 800/160 (DS) TAB 1 EA TAB PO SCH ×2 (09:59→20:31)
[2017-01-03] MEDS: AMIODARONE HCL 200 MG TAB PO SCH (12:25)
[2017-01-03] MEDS: predniSONE 5 MG TAB PO SCH (12:29)
[2017-01-03] MEDS: methylPREDNISolone SODIUM SUC 40 MG/ML VIAL IV SCH (17:09)
[2017-01-03] MEDS: AZITHROMYCIN 250 MG TAB PO SCH (17:09)
[2017-01-03] MEDS: IV SET AND CAP CHANGE INJ INJ SCH (19:12)
[2017-01-03] MEDS: ASPIRIN EC 81 MG TAB PO SCH (20:32)
[2017-01-03] MEDS: AMITRIPTYLINE HCL 25 MG TAB PO SCH (20:32)
[2017-01-04] MEDS: methylPREDNISolone SODIUM SUC 40 MG/ML VIAL IV SCH ×2 (00:14→09:31)
--- NOTE | 2017-01-04 06:44 | RAD ---
EXAM: Two view chest. INDICATION: Pneumonia. COMPARISON: Chest x-ray: 01/03/17. FINDINGS: There are airspace opacities within the right middle and right lower lobe. The heart size is stable. Small pleural effusions are present. There is no pneumothorax. IMPRESSION: Multifocal pneumonia Electronically signed by: Russ Roque MD 01/04/2017 6:42 AM CDT Workstation: [id number]
[2017-01-04] MEDS: PANTOPRAZOLE SODIUM TAB 40 MG PO SCH (07:48)
[2017-01-04] MEDS ORDERED: POTASSIUM CHLORIDE 20 MEQ TAB PO ONE (07:57)
[2017-01-04] MEDS: INSULIN LISPRO 100 UNITS/ML PEN SUBCU SCH ×3 (08:02→17:36)
[2017-01-04] MEDS: IPRATROPIUM/ALBUTEROL 3 ML VIAL NEB SCH ×3 (08:55→16:28)
[2017-01-04] MEDS: ALLOPURINOL 300 MG TAB PO SCH (09:29)
[2017-01-04] MEDS: GABAPENTIN 100 MG CAP PO SCH (09:29)
[2017-01-04] MEDS: SULFA/TRIMETH 800/160 (DS) TAB 1 EA TAB PO SCH (09:29)
[2017-01-04] MEDS: VALSARTAN 80 MG TAB PO SCH (09:29)
[2017-01-04] MEDS: SITagliptin 50 MG TAB PO SCH (09:29)
[2017-01-04] MEDS: APIXABAN 2.5 MG TAB PO SCH (09:30)
[2017-01-04] MEDS: METOPROLOL SUCCINATE XL 25 MG TAB PO SCH (09:30)
[2017-01-04] MEDS: amLODIPine BESYLATE 5 MG TAB PO SCH (09:31)
[2017-01-04] MEDS: SODIUM CHLORIDE 0.9% (FLUSH) 10 ML SYG IV SCH (09:31)
[2017-01-04] MEDS ORDERED: POTASSIUM CHLORIDE 20 MEQ TAB ONE (09:35)
[2017-01-04] MEDS: AMIODARONE HCL 200 MG TAB PO SCH (12:25)
[2017-01-04] MEDS: predniSONE 5 MG TAB PO SCH (12:25)
[2017-01-04] MEDS: AZITHROMYCIN 250 MG TAB PO SCH (15:55)
[2017-01-04 18:43] VITALS: BP 132/67; TEMP 96.7; O2SAT 93
--- NOTE | 2017-01-05 09:23 | DS ---
SUPERVISING PHYSICIAN: Mahesh Schultz MD DISCHARGE DIAGNOSIS: 1. Right middle and lower lobe pneumonia, community acquired, in an immunocompromised patient with a decreased white count, but with slight improvement. 2. Early sepsis with a fever, shortness of breath secondary to #1, now improved.. 3. Urinary tract infection showing Escherichia coli that is presently sensitive to Merrem as well as Bactrim. She will be changed to p.o. Bactrim. 4. Metabolic encephalopathy secondary to early sepsis, now resolved. 5. Normocytic/normochromic anemia, most likely due to chronic disease process. 6. 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 Frias, and retail manager, Dr. Olson. 7. Chronic congestive heart failure with diastolic dysfunction, with etiology. likely secondary to mild form of hypertension with last echocardiogram in October 2016 showing an elevated PA systolic pressure and a mild diastolic dysfunction. 8. History of gout. 9. Type 2 diabetes mellitus on oral therapy. 10. History of bilateral breast cancer with mastectomies. 11. Hypertension. 12. Dehydration. HISTORY OF PRESENT ILLNESS: This is an 86-year-old female patient who lives at home that presented to the Emergency Department tonight after she had some dizziness with some diarrhea and confusion. She became weaker and weaker and was brought to the Emergency Room with a fever reported at 102 at home. She had significant shortness of breath and had been taking her breathing treatments approximately 10 times on the date of admission. Laboratory studies in the Emergency Room showed a white count of 4.5, hemoglobin 10.9, hematocrit 33.5, platelet count 141,000. There was no left shift. Coagulation studies showed an elevated PT of 20.4. She has a history of multiple pulmonary emboli as well as DVTs and she is on Eliquis at this time. Chemistries showed normal electrolytes. Her CK was 17, BNP 489. Urinalysis showed just a trace of leukocyte esterase with a moderate amount of blood, 5 to 10 WBCs. Flu swab was negative for A and B. Blood cultures were completed. She had a a CT of the head without contrast and per radiologic interpretation there was no mention of any acute intracranial abnormalities. She had a temperature in the Emergency Room of 102.3. Antibiotics initiated were azithromycin and Rocephin. She was admitted to the Medical/Surgical Floor for further treatment for developing right sided pneumonia and acute mental status change. The patient is on chronic 02. HOSPITAL COURSE: The patient progressively improved over the next few days. She was given aggressive pulmonary hygiene including her breathing treatments. Her IV infiltrated while the Rocephin was going. Her family was worried that she had an allergic reaction, so the Rocephin was discontinued, but the Zithromax was continued. She was also found to have a urinary tract infection. Her urine culture showed Escherichia coli. She was given two doses of Merrem. Once sensitivities were back, she was changed to p.o. Bactrim DS and continued on the azithromycin. She was also given additional dosing of steroids that were tapered down. Her retail manager, Dr. Olson, was contacted with her laboratory results for her CBC which included a low WBC that went as low as 2.8 and today is 4.1, platelet count dropped as low as 117, hemoglobin and hematocrit went down as low as 9.[address] Olson's office recommended she keep her usual appointment and continue her present treatment. Physical therapy was consulted during her stay and although she was weak initially, she met all physical therapy goals and her chest x-ray has stabilized. There was a question whether there was an improvement from yesterday's x-ray to today's x-ray and Dr. Declan Pulido was called and felt that her chest x-ray was stabilized from yesterday. The plan is to be discharged today. DISCHARGE PLAN: The patient's family was very concerned for her safety and although she met all her physical therapy goals and her laboratory studies are stable as well as her chest x-rays, they were very concerned with her going home. She did not meet Swing Bed criteria and they have decided to do private payment overnight until some sitters can be employed at their residence to help with the patient's care. She will be discharged out of the Acute Care setting and re-admitted to the hospital. She is in good condition. She is to resume her usual diet. Her physical therapy and home health will be continued after she leaves the hospital with [facility]. DISCHARGE MEDICATIONS: 1. Januvia. 2. Protonix. 3. Aspirin. 4. Amitriptyline. 5. Allopurinol. 6. Prednisone. 7. Gabapentin. 8. Amiodarone. 9. Amlodipine. 10. Metoprolol. 11. Eliquis. 12. Tessalon Perles. 13. Guaifenesin. 14. Prednisone taper. 15. Bactrim DS. 16. Azithromycin tablets. #[id number] [facility]
== END 2017-01-04 18:43 | disposition hospice, inpatient (51) | DRG 871 ==
LOC: ER 12:22 → MS 16:27
PROVIDERS: ADMIT Nurse Practitioner Family; ATTEND Nurse Practitioner Acute Care
DX: A41.9 Sepsis, unspecified organism (principal); J18.9 Pneumonia, unspecified organism; G93.41 Metabolic encephalopathy; N39.0 Urinary tract infection, site not specified; I50.32 Chronic diastolic (congestive) heart failure; I13.0 Hypertensive heart and chronic kidney disease with heart failure and stage 1 through stage 4 chronic kidney disease, or unspecified chronic kidney disease; B96.20 Unspecified Escherichia coli [E. coli] as the cause of diseases classified elsewhere; D63.8 Anemia in other chronic diseases classified elsewhere; M10.9 Gout, unspecified; E11.9 Type 2 diabetes mellitus without complications; E86.0 Dehydration; N18.1 Chronic kidney disease, stage 1; E78.5 Hyperlipidemia, unspecified; Z86.718 Personal history of other venous thrombosis and embolism; Z86.711 Personal history of pulmonary embolism; Z79.01 Long term (current) use of anticoagulants; Z85.3 Personal history of malignant neoplasm of breast; Z99.81 Dependence on supplemental oxygen; Z79.84 Long term (current) use of oral hypoglycemic drugs; Z87.891 Personal history of nicotine dependence; Z79.82 Long term (current) use of aspirin; Z79.52 Long term (current) use of systemic steroids; Z88.0 Allergy status to penicillin; Z88.1 Allergy status to other antibiotic agents

== ENCOUNTER 2017-01-04 19:03 | Inpatient (IN) | payer SELFPAY ==
--- NOTE | 2017-01-04 19:04 | HP ---
SUPERVISING PHYSICIAN: Mahesh Schultz M.D. CHIEF COMPLAINT: Weakness. HISTORY OF PRESENT ILLNESS: This is an 86 year-old female patient who was originally admitted to the hospital on 12/31/16 for right middle and lower lobe pneumonia community acquired as well as early sepsis with fever and shortness of breath, and a urinary tract infection. Her hospital course, although slowly , progressed without any issues except she had an infiltrated IV with Rocephin that was infiltrated into her right arm. She was found to have a urinary tract infection with Escherichia coli. She was on Azithromycin and Rocephin at one point and Rocephin was discontinued, and then Merrem was started until her urine cultures came back. The culture was sensitive to Bactrim, so she was started on p.o. Bactrim as well as p.o. Zithromax. She was also given a short course of Solu-Medrol and today she was discharged from the hospital. Her family had great concerns for her safety at home and although she did not qualify for Swing Bed admission, the patient will be admitted to the hospital due to weakness so the family can secure home care in addition to her physical therapy and home health services that are provided by [facility]. PAST MEDICAL HISTORY: 1. Right and left breast cancer with bilateral mastectomies. 2. Hypertension. 3. History of gout. 4. History of gastroesophageal reflux disease. 5. History of chronic kidney disease, stage 1. 6. Type 2 diabetes on oral therapy. 7. Hyperlipidemia. 8. History of tobacco abuse. 9. History of deep venous thrombosis within the small vein of the left lower extremity. 10. 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 11. Congestive heart failure with mild diastolic dysfunction with last echocardiogram noted in October 2016 with greater than 55% ejection fraction. PAST SURGICAL HISTORY: 1. Right and left mastectomies. 2. Previous right subclavian port placement. 3. Hysterectomy. 4. Tonsillectomy as a child. 5. Adenoidectomy. 6. Cholecystectomy. 7. Left hip reduction and internal fixation. 8. Back surgery. 9. Partial thyroidectomy. CURRENT MEDICATIONS: 1. Eliquis 5 mg twice a day. 2. Allopurinol 300 mg every other day. 3. Metoprolol succinate 4.5 mg twice a day. 4. Norvasc 2.5 mg daily. 5. Januvia 50 mg daily. 6. Protonix 40 mg, 1 tablet daily. 7. Aspirin 81 mg at bedtime. 8. Amitriptyline 50 mg at bedtime. 9. Losartan 80 mg twice a day. 10. Prednisone 5 mg at noon. 11. Gabapentin 100 mg twice a day. 12. Amiodarone 200 mg at noon. ALLERGIES: PENICILLIN-G, LEVAQUIN. FAMILY HISTORY: Noncontributory. SOCIAL HISTORY: The patient lives in [place]. She is . She has no history of tobacco or alcohol usage. REVIEW OF SYSTEMS: CONSTITUTIONAL: Negative for fever, fatigue or malaise. HEENT: Denies vision changes, sore throat, ear pain or sinus problems. RESPIRATORY: Complains of some shortness of breath at times and with exertion, and also complains of cough, but no wheezing. CARDIOVASCULAR: Denies chest pains, palpitations or tachycardia. GASTROINTESTINAL: Denies constipation, abdominal pain, nausea or vomiting. GENITOURINARY: Denies dysuria, hematuria or polyuria. NEUROLOGIC: Denies headache, dizziness, but does complain of some weakness, especially with ambulation and exertion. PHYSICAL EXAMINATION: VITAL SIGNS: She is afebrile, heart rate 70, blood pressure 132/67, respiratory rate 18, O2 sat is 93% on 2 liters nasal cannula. GENERAL: This is an 86 year-old female patient who is lying in her hospital bed. She is in no acute distress. HEENT: Normocephalic and atraumatic. Pupils are equal and reactive. Oropharynx is clear. NECK: Supple without mass. CHEST: Essentially clear to auscultation bilaterally. It is somewhat diminished at the bases. There is equal rise and fall of the chest with inspiration and expiration. CARDIOVASCULAR: Regular rate and rhythm. ABDOMEN: Soft, nondistended, non-tender. Bowel sounds are positive. EXTREMITIES: No cyanosis, clubbing or edema. NEUROLOGIC: She is awake, alert and oriented times three. LABORATORY: There are no labs and films to report at this time. ASSESSMENT: 1. Right middle and lower lobe pneumonia, community acquired, in an immunocompromised patient with a decreased white count, but with slight improvement. 2. Early sepsis with a fever, shortness of breath secondary to #1, now improved.. 3. Urinary tract infection showing Escherichia coli that is presently sensitive to Merrem as well as Bactrim. She will be changed to p.o. Bactrim. 4. Metabolic encephalopathy secondary to early sepsis, now resolved. 5. Normocytic/normochromic anemia, most likely due to chronic disease process. 6. 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 Frias, and shrimper, Dr. Olson. 7. Chronic congestive heart failure with diastolic dysfunction, with etiology. likely secondary to mild form of hypertension with last echocardiogram in October 2016 showing an elevated PA systolic pressure and a mild diastolic dysfunction. 8. History of gout. 9. Type 2 diabetes mellitus on oral therapy. 10. History of bilateral breast cancer with mastectomies. 11. Hypertension. 12. Dehydration. PLAN: We will admit the patient to the hospital. This is a private pay admission. The patient's family is currently obtaining nursing help at home in addition to [facility]. She is to have a followup appointment with Dr. Boyce next Monday and then a pulmonary appointment with her used car salesperson in [place] a week from Monday. We will restart her current home medications in addition to her Bactrim DS daily as well as her Zithromax that she will have for 3 more days. She will also continue her breathing treatments. She will have Tessalon Perles for her cough. We will continue her blood sugars and sliding scale insulin. Hopefully she can be discharged home tomorrow after they have obtained help at home. We will continue to monitor her closely and follow as needed. Dr. Schultz is the collaborating physician available for consultation. #[id number] [facility]
[2017-01-04] MEDS ORDERED: GLUCAGON INJ 1 MG VIAL SUBCU PRN (19:51)
[2017-01-04] MEDS ORDERED: DEXTROSE 50% 25 GM/50 ML SYG IV PRN (19:51)
[2017-01-04] MEDS ORDERED: AZITHROMYCIN 250 MG TAB PO SCH (20:00)
[2017-01-04] MEDS: SULFA/TRIMETH 800/160 (DS) TAB 1 EA TAB PO SCH (20:21)
[2017-01-04] MEDS: INSULIN LISPRO 100 UNITS/ML PEN SUBCU SCH (21:04)
[2017-01-04] MEDS: guaiFENesin ER TAB 600 MG TAB PO SCH (21:04)
[2017-01-04] MEDS: BENZONATATE PERLES 100 MG CAP PO SCH (21:04)
[2017-01-05 02:20] VITALS: O2SAT 96
[2017-01-05] MEDS ORDERED: predniSONE 20 MG TAB ONE (07:13)
[2017-01-05] MEDS: INSULIN LISPRO 100 UNITS/ML PEN SUBCU SCH ×3 (07:24→16:43)
[2017-01-05] MEDS: SULFA/TRIMETH 800/160 (DS) TAB 1 EA TAB PO SCH (08:00)
[2017-01-05] MEDS: guaiFENesin ER TAB 600 MG TAB PO SCH (08:00)
[2017-01-05] MEDS: BENZONATATE PERLES 100 MG CAP PO SCH ×2 (08:01→14:25)
[2017-01-05] MEDS ORDERED: predniSONE 10 MG TAB PO SCH (09:00)
[2017-01-05] MEDS ORDERED: ALBUTEROL SULFATE 2.5 MG/3 ML VIAL NEB PRN (09:15)
[2017-01-05] MEDS: IPRATROPIUM/ALBUTEROL 3 ML VIAL NEB SCH ×3 (09:23→17:43)
[2017-01-05 16:22] VITALS: BP 149/65; TEMP 98.1
--- NOTE | 2017-01-05 17:56 | DS ---
SUPERVISING PHYSICIAN: Mahesh Schultz M.D. DISCHARGE DIAGNOSIS: 1. Right middle and lower lobe pneumonia, community acquired, in an immunocompromised patient with a decreased white count, but with slight improvement. 2. Early sepsis with a fever, shortness of breath secondary to #1, now improved.. 3. Urinary tract infection showing Escherichia coli that is presently sensitive to Merrem as well as Bactrim. She will be changed to p.o. Bactrim. 4. Metabolic encephalopathy secondary to early sepsis, now resolved. 5. Normocytic/normochromic anemia, most likely due to chronic disease process. 6. 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 Frias, and patient service representative, Dr. Olson. 7. Chronic congestive heart failure with diastolic dysfunction, with etiology. likely secondary to mild form of hypertension with last echocardiogram in October 2016 showing an elevated PA systolic pressure and a mild diastolic dysfunction. 8. History of gout. 9. Type 2 diabetes mellitus on oral therapy. 10. History of bilateral breast cancer with mastectomies. 11. Hypertension. 12. Dehydration. DISCHARGE PLAN: The patient did very well on her short stay here in the hospital. She will be discharged home today in stable condition. At some point there was a concern because she had some blood-streaked sputum. Staff did not see it, so she has been encouraged to take a sputum cup home and she has been given an order for a sputum culture with gram stain if she can produce a sputum, and her has been directed to bring it to the hospital. She will continue with physical therapy and home health per [facility]'s home health services. She is to continue on her Prednisone taper, Bactrim DS and Azithromycin as instructed. She has an appointment with Dr. Boyce on Monday the at 10:00 AM. She has a cloud operations engineer appointment on Monday the in [place]. She is to return to the hospital for any further problems or complications. DISCHARGE MEDICATIONS: 1. Januvia. 2. Protonix. 3. Aspirin. 4. Amitriptyline. 5. Allopurinol. 6. Prednisone. 7. Gabapentin. 8. Amiodarone. 9. Amlodipine. 10. Metoprolol. 11. Eliquis. 12. Tessalon Perles. 13. Guaifenesin. 14. Prednisone taper. 15. Bactrim DS. 16. Azithromycin tablets. Dr. Schultz is the supervising physician and available for consultation. #[id number] [facility]
== END 2017-01-05 18:05 | disposition home health service (06) | DRG 871 ==
LOC: MS 19:03
PROVIDERS: ADMIT Nurse Practitioner Acute Care; ATTEND Nurse Practitioner Acute Care
DX: A41.9 Sepsis, unspecified organism (principal); J18.9 Pneumonia, unspecified organism; N39.0 Urinary tract infection, site not specified; I50.32 Chronic diastolic (congestive) heart failure; I13.0 Hypertensive heart and chronic kidney disease with heart failure and stage 1 through stage 4 chronic kidney disease, or unspecified chronic kidney disease; R53.1 Weakness; B96.20 Unspecified Escherichia coli [E. coli] as the cause of diseases classified elsewhere; D63.8 Anemia in other chronic diseases classified elsewhere; M10.9 Gout, unspecified; E11.22 Type 2 diabetes mellitus with diabetic chronic kidney disease; N18.1 Chronic kidney disease, stage 1; Z85.3 Personal history of malignant neoplasm of breast; Z79.84 Long term (current) use of oral hypoglycemic drugs; Z79.82 Long term (current) use of aspirin; Z79.899 Other long term (current) drug therapy; Z79.52 Long term (current) use of systemic steroids; Z88.0 Allergy status to penicillin; Z79.02 Long term (current) use of antithrombotics/antiplatelets; Z88.1 Allergy status to other antibiotic agents; Z86.718 Personal history of other venous thrombosis and embolism; Z86.711 Personal history of pulmonary embolism

== ENCOUNTER → 2017-01-05 | Outpatient (CLI) | payer BC, MEDICARE | END | disposition home or self-care (01) | LOC: GMA 19:26 | PROVIDERS: ATTEND Nurse Practitioner Acute Care | DX: J18.9 Pneumonia, unspecified organism (principal) ==

== ENCOUNTER 2017-02-04 22:35 | Inpatient (IN) | payer BC, MEDICARE ==
[2017-02-04] MEDS ORDERED: SODIUM CHLORIDE 0.9% 1000ML 1,000 ML IVS PRN (22:51)
[2017-02-04] MEDS ORDERED: PROMETHAZINE HCL INJ 12.5 MG in SODIUM CHLORIDE 0.9% 50ML 50 ML IVPB ONE (22:51)
[2017-02-04] MEDS ORDERED: SODIUM CHLORIDE 0.9% 50ML 50 ML ONE (23:02)
[2017-02-04] MEDS ORDERED: PROMETHAZINE HCL INJ 25 MG/ML VIAL ONE (23:02)
--- NOTE | 2017-02-04 23:10 | ED.PDOC ---
History of Present Illness - General Chief Complaint: Fever Stated Complaint: vomiting and fever Time Seen by Provider: 02/04/17 22:39 Source: RN notes reviewed, Vital Signs reviewed, family - and Daughter, old records Exam Limitations: clinical condition - Patient arouses but quickly falls back asleep and does not answer questions. - History of Present Illness Initial Comments: Family brings patient in with c/o fever, fatigue, chills and vomiting. reports that she got up about 4am this morning to go to the bathroom and was very unsteady on her feet and needed help to get back into bed. She then slept most of the day except when he woke her up to take her medications or go to the bathroom. He cooked dinner and she ate and seemed better. Shortly after she developed chills and a fever. He gave her aspirin and tried to bring her temp down with cool rags. Initially seemed to help but then her temp went back up to 103. She also became less responsive after dinner. Finally on the drive here she had an episode of vomiting. reports that yesterday she was in her usual state of health. She did get a flu shot and go to a family birthday alliance party last night. 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 Denies: short of breath, stridor, wheezing Cardiology: States: no symptoms reported Gastrointestinal/Abdominal: States: see HPI, vomiting Genitourinary: States: no symptoms reported Musculoskeletal: States: other - c/o her legs hurting Skin: States: no symptoms reported Neurological: States: see HPI Hematologic/Lymphatic: States: easy bleeding - On Eliquis for DVT and PE's All other Systems: No Change from Baseline Past Medical History (General) - Patient Medical History Hx Seizures: No Hx Stroke: No Hx Asthma: Yes Hx of COPD: No Hx Cardiac Disorders: No Hx Congestive Heart Failure: No Hx Pacemaker: No Hx Hypertension: Yes Hx Diabetes: Yes - Type 2 controlled w/ Januvia Hx Cancer: Yes - breast Hx MRSA: No Surgical History: Hysterectomy, other - Vaccination History Hx Influenza Vaccination: Yes - 02/03/17 Hx Pneumococcal Vaccination: Yes - 01/20/17 - Social History Hx Tobacco Use: Yes Hx Alcohol Use: No Hx Substance Use: No Hx Physical Abuse: No Hx Emotional Abuse: No Family Medical History - Family History Mother Family History: Unknown Physical Exam - Physical Exam General Appearance: Lethargic, Ill Appearing, Well Developed, Well Groomed Neck: supple, normal inspection Respiratory: no respiratory distress, no accessory muscle use, decreased breath sounds - LLL Cardiovascular/Chest: normal peripheral pulses, regular rate, rhythm, no gallop , systolic murmur, other - 1+ edema Gastrointestinal/Abdominal: normal bowel sounds, non tender, soft, no organomegaly Extremity: pedal edema - 1+ Neurologic: other - Arousable but quickly falls back asleep Skin Exam: diaphoresis Comments: Vital Signs 02/04/17 22:49 Temperature 103.3 F H Pulse Rate [ 104 H left] Respiratory 20 Rate Blood Pressure 176/74 [left] O2 Sat by Pulse 95 Oximetry Progress - Progress Progress: 02/05/17 00:11 Awake, alert and answering questions appropriately. Will start Bactrim PO since she is allergic to penicillins, cephalosporins, Merepenem and Quinalones. Discussed with Hospitalist, John Morataya. Will admit to hospital for UTI and early sepsis. - Results/Orders Results/Orders: Laboratory Tests 02/04/17 02/04/17 02/04/17 22:50 22:50 23:00 WBC 1.8 L* RBC 3.65 L Hgb 11.5 L Hct 35.3 L MCV 96.5 MCH 31.5 H MCHC 32.6 L RDW 18.5 H Plt Count 117 L MPV 8.6 Absolute Neuts (auto) Not Reportable Absolute Lymphs (auto) Not Reportable Absolute Monos (auto) Not Reportable Absolute Eos (auto) Not Reportable Neutrophils % Not Reportable Neutrophils % (Manual) 70.0 Lymphocytes % Not Reportable Lymphocytes % (Manual) 21.0 Monocytes % Not Reportable Monocytes % (Manual) 3.0 Eosinophils % Not Reportable Basophils % Not Reportable Band Neutrophils 5.0 Basophils 1.0 Toxic Granulation 1+ Platelet Estimate Decreased Anisocytosis 1+ Sodium 138 Potassium 3.7 Chloride 104 Carbon Dioxide 25 Anion Gap 12.7 BUN 23 H Creatinine 0.98 BUN/Creatinine Ratio 23.5 H Random Glucose 209 H Serum Osmolality 285.5 Lactic Acid 1.6 Calcium 9.1 Total Bilirubin 0.6 AST 69 H ALT 74 H Alkaline Phosphatase 139 H Serum Total Protein 6.8 Albumin 3.6 Globulin 3.2 Albumin/Globulin Ratio 1.1 Urine Color Urine Appearance Urine pH Ur Specific [place] Urine Protein Urine Glucose (UA) Urine Ketones Urine Blood Urine Nitrite Urine Bilirubin Urine Urobilinogen Ur Leukocyte Esterase Urine RBC Urine WBC Ur Epithelial Cells Urine Bacteria 02/04/17 23:30 WBC RBC Hgb Hct MCV MCH MCHC RDW Plt Count MPV Absolute Neuts (auto) Absolute Lymphs (auto) Absolute Monos (auto) Absolute Eos (auto) Neutrophils % Neutrophils % (Manual) Lymphocytes % Lymphocytes % (Manual) Monocytes % Monocytes % (Manual) Eosinophils % Basophils % Band Neutrophils Basophils Toxic Granulation Platelet Estimate Anisocytosis Sodium Potassium Chloride Carbon Dioxide Anion Gap BUN Creatinine BUN/Creatinine Ratio Random Glucose Serum Osmolality Lactic Acid Calcium Total Bilirubin AST ALT Alkaline Phosphatase Serum Total Protein Albumin Globulin Albumin/Globulin Ratio Urine Color Yellow Urine Appearance Cloudy H Urine pH 5.5 Ur Specific [place] 1.015 Urine Protein 100 H Urine Glucose (UA) 100 H Urine Ketones Negative Urine Blood Moderate H Urine Nitrite Positive H Urine Bilirubin Negative Urine Urobilinogen 0.2 Ur Leukocyte Esterase Large H Urine RBC 5-10 H Urine WBC >100 H Ur Epithelial Cells 0-1 Urine Bacteria 3+ H Departure - Departure Clinical Impression: Urinary tract infection Qualifiers: Urinary tract infection type: site unspecified Hematuria presence: with hematuria Qualified Code(s): N39.0 - Urinary tract infection, site not specified ; R31.9 - Hematuria, unspecified Leukocytopenia, unspecified Qualifiers: Leukopenia type: unspecified Qualified Code(s): D72.819 - Decreased white blood cell count, unspecified Time of Disposition: 00:18 Disposition: Admit Patient Condition: Poor Departure Forms: ED Discharge - Pt. Copy, Patient Portal Self Enrollment Referrals: Mane Boyce MD [Primary Care Provider] - 1-2 Weeks Home Medications: Ambulatory Orders Allopurinol 300 mg PO RIMA-OTH-DAY 12/31/16 Amitriptyline HCl 50 mg PO BEDTIME 12/31/16 Amlodipine Besylate [Norvasc] 2.5 mg PO DAILY 12/31/16 Apixaban [Eliquis] 5 mg PO BID 12/31/16 Aspirin [Aspirin EC] 81 mg PO BEDTIME 12/31/16 Gabapentin 100 mg PO BID 12/31/16 Metoprolol Succinate [Metoprolol Succinate ER] 12.5 mg PO BID 12/31/16 Pantoprazole Tablet [Protonix] 1 tablet PO PRN PRN 12/31/16 Prednisone 5 mg PO DAILY 12/31/16 SITagliptin [Januvia] 50 mg PO DAILY 12/31/16 Valsartan 80 mg PO BID 12/31/16 Benzonatate Perles [Tessalon Perles] 200 mg PO TID 01/05/17 guaiFENesin ER TAB [Mucinex Tab] 600 mg PO PRN PRN 02/04/17 Decision To Admit - Decistion To Admit Decision to Admit Reason: Admit from ER Decision to Admit Date: 02/05/17 Decision to Admit Time: 00:17
--- NOTE | 2017-02-04 23:37 | RAD ---
Examination: XR CHEST 1 VIEW dated 02/04/2017 10:51 PM CDT History: Fever w/ recent hx of pneumonia Comparison: 01/04/2017 Technique: Frontal view of the chest Findings: There remains faint opacities within the right lower lung zone with linear atelectasis in the midlung zone. Left lung is clear. No pneumothorax or pleural effusion. The cardiomediastinal silhouette is within normal limits. Surgical clips project over the right lateral chest wall and left axilla. Impression: Persistent right lower lung zone opacities, mildly improved as compared to the prior exam. Electronically signed by: Krystian Hunter MD 02/04/2017 11:36 PM CDT
[2017-02-05] MEDS ORDERED: ACETAMINOPHEN 500 MG TAB PO ONE (00:10)
[2017-02-05] MEDS ORDERED: SULFA/TRIMETH 800/160 (DS) TAB 1 EA TAB PO ONE (00:10)
[2017-02-05] MEDS ORDERED: TRIMETH IVPB ONE ×4 (00:14→20:18)
[2017-02-05] MEDS ORDERED: DEXTROSE IVPB ONE (00:14)
[2017-02-05] MEDS ORDERED: SULFA IVPB ONE ×4 (00:14→20:18)
--- NOTE | 2017-02-05 00:48 | HP ---
SUPERVISING PHYSICIAN: Mahesh Schultz M.D. CHIEF COMPLAINT: Vomiting with fever. HISTORY OF PRESENT ILLNESS: Ms. Shields is an 87 year-old female patient that presented to the Emergency Department with her family after she was complaining of fever, fatigue, chills and vomiting. Her noted that she had gotten up around 4:00 AM on the morning prior to admission to go to the bathroom and was very unsteady on her feet, needed help to get back into bed. After going back to bed, she slept most of the day only to awake to take her medications and go to the bathroom. He then cooked dinner and she ate a little bit, felt somewhat better but shortly after developed chills and fever. He then gave her an aspirin and tried to bring her temperature down as her temperature was noted to be elevated at 103. notes that she became less responsive after dinner after which time it was decided to bring her to the Emergency Department. On exiting the patient's family vehicle, the patient did have one episode of emesis. It was noted that per the patient's , the patient had been in her normal state of health in the last 24 hours. She had gotten a flu shot and next had gone to a family birthday republican the previous night before. The reports that she had a temperature up to 105 at home and again responded to aspirin minimally at which time the temperature had gone down to 103. In the Emergency Department on arrival, the patient's vital signs showed she was febrile with a T max of 103.3 with a rapid pulse of 104. Blood pressure was showing 108/96 with saturations on room air at 95%. Her laboratory studies showed that she had a neutropenic white count of 1.8 with a left shift with increased bands. Hemoglobin showed some anemia at 11.5 and 35.3 , however review of past medical records showed that she has chronic anemia. Coagulation studies showed an elevated PT at 3.4 and the patient is on Eliquis as she has a history of a previous deep venous thrombosis. Initially on laboratory studies her chemistries in the Emergency Department showed that she had normal electrolytes with potassium of 3.7 with slightly elevated BUN at 23 with normal creatinine. Liver functions were elevated, including AST, ALT and alkaline phosphatase. Lactic acid showed to be within normal limits at 1.6. Radiographic studies in the Emergency Department included a chest x-ray and per radiology interpretation of single view chest there was noted a persistent right lower lung zone opacities which were mildly improved as compared to previous exam on 01/04/17. It is of note that she had been recently treated in the hospital at [facility] for right middle and lower lobe pneumonia community acquired. The patient was given some fluids in the Emergency Department after which the patient had some improvement in her mentation. Urinalysis was then completed and this demonstrated that she had a significant urinary tract infection with positive nitrites and greater than 100 WBCs with 3+ bacteria. The patient has a significant history of allergies limiting antibiotic choices as she is allergic to both cephalosporins, Penicillins, Meropenem and fluoroquinolones. A review of her past history showed that she did have a urinary tract infection in the past with that culture being on 01/01/17 with Escherichia coli species that was sensitive to all but fluoroquinolones. Given the patient's significant urinary tract infection and decreased mentation, tachycardia, fever with concerns for early sepsis secondary to the urinary tract infection and her lengthy history of allergies to antibiotics, she was started on IV Bactrim and will now be admitted to the Medical/Surgical floor for continuation of treatment and further evaluation. PAST MEDICAL HISTORY: 1. Recent urinary tract infection with an Escherichia coli 12/2016. 2. Recent history of community acquired right middle and lower lobe pneumonia. 3. Bilateral breast cancer with bilateral mastectomies. 4. Hypertension. 5. History of gout. 6. History of gastroesophageal reflux disease. 7. History of chronic kidney disease stage I. 8. Type 2 diabetes mellitus on oral therapy. 9. Hyperlipidemia. 10. 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 11. Congestive heart failure with a mild diastolic dysfunction with last echocardiogram noted in 2017 in October to be greater than 55% for ejection fraction. PAST SURGICAL HISTORY: 1. Bilateral mastectomy. 2. Previous right subclavian port placement. 3. Hysterectomy. 4. Tonsillectomy as a child. 5. Adenoidectomy. 6. Cholecystectomy. 7. Left hip reduction and internal fixation. 8. Back surgery. 9. Partial thyroidectomy. CURRENT MEDICATIONS: 1. Guaifenesin 600 mg as needed. 2. Valsartan 80 mg twice daily. 3. Januvia 50 mg daily. 4. Prednisone 5 mg daily. 5. Protonix daily. 6. Metoprolol succinate extended release 12.5 mg twice daily. 7. Gabapentin 100 mg b.i.d. 8. Aspirin 81 mg at bedtime. 9. Eliquis 5 mg twice daily. 10. Norvasc 2.5 mg daily. 11. Amitriptyline 50 mg at bedtime. 12. Allopurinol 300 mg every other day. ALLERGIES: PENICILLIN G, LEVAQUIN, MEROPENEM, CEPHALOSPORINS. FAMILY HISTORY: Noncontributory. SOCIAL HISTORY: The patient lives in [place]. She is . The patient has no history of tobacco or alcohol use. REVIEW OF SYSTEMS: CONSTITUTIONAL: As noted in the History of Present Illness, positive for chills , fever and general malaise. HEENT: No nasal congestion, visual disturbances, headaches. RESPIRATORY: Positive for cough. Denies shortness of breath, stridors, wheezing. CARDIOVASCULAR: Denies any chest pains, exertional dyspnea, palpitations. GASTROINTESTINAL: As noted in the history of present illness, nausea and vomiting. GENITOURINARY: Denies any dysuria or hematuria. MUSCULOSKELETAL: Notes that she has general discomfort of both lower legs. NEUROLOGIC: As per History of Present Illness, initially in the Emergency Department she was lethargic, but on admission to the Medical/Surgical floor the patient was alert without any complaints of any neurologic deficits, syncopal episodes or headaches. 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 PHYSICAL EXAMINATION: VITAL SIGNS: Temperature 103.3, pulse 104, blood pressure 108/96, respirations 20, satting 94% on nasal cannula at 2 liters at rest. Weight 60.5 kg. GENERAL: The patient on admission assessment shows to be alert. She is ill- appearing, but shows to be in no acute distress. She is well groomed. Does look somewhat dehydrated. HEENT: Tympanic membranes are clear bilaterally. Oropharynx was pink with mucosal membranes being dry. NECK: Supple, non-tender with full range of motion. There is no jugular venous distention. CHEST: Lungs are fairly clear with some decreased breath sounds to the left lower lobe but no rhonchi, wheezing or rales. No accessory muscles noted. CARDIOVASCULAR: Regular rate and rhythm without appreciable murmurs or gallops. There is note of a systolic murmur. ABDOMEN: Soft, non-tender. Positive bowel sounds. EXTREMITIES: No clubbing or cyanosis. She does have a trace of edema bilaterally. Bilateral pedal edema trace to 1+. NEUROLOGIC: She is alert and oriented times three. Facial features were symmetrical. Extraocular movements are within normal limits. Cranial nerves II -XII are grossly intact. There was no detectable neurologic or sensory deficit. LABORATORY: White count was neutropenic at 1.8 with hemoglobin 11.3, hematocrit 35.3 with platelet count 117,000. RBC indices show a microcytic hyperchromic presentation. Differential does show a left shift with increased band count. Chemistries, initially electrolytes showed to be within normal limits with potassium 3.7, BUN 23, creatinine 0.98 with glucose 209, calcium 9.1 , lactic acid 1.6. Total bilirubin 0.6 with AST elevated at 69, ALT elevated at 74, alkaline phosphatase as well at 139. BNP was 451. Urinalysis showed a moderate amount of blood, positive nitrites with large amount of leukocyte esterase with microscopic showing 5 to 10 RBCs, greater than 100 WBCs, 0 to 1 epithelials with 3+ bacteria. MICROBIOLOGY: Blood cultures are pending. Sputum pending. Urine culture pending. RADIOLOGY: Chest x-ray in the Emergency Department per radiology interpretation showed a persistent right lower lobe lung zone opacity mildly improved as compared to previous exam on 01/04/17. ASSESSMENT: 1. Urinary tract infection with the patient having been recently treated within the last month for urinary tract infection with Escherichia coli. 2. Early sepsis with slightly increased heart rate, temperature and acute mental status change likely secondary to #1 with concerns for continued left lower lobe pneumonia as noted on initial chest x-ray. 3. Neutropenia with a left shift likely secondary to #1 with a history of having low normal white counts. 4. Hyperchromic microcytic anemia likely secondary to chronic illness. 5. Type 2 diabetes mellitus on oral therapy. 6. Chronic renal insufficiency with some exacerbation of of prerenal azotemia secondary to #1. 7. Elevated liver functions, uncertain etiology at this point. 8. Chronic congestive heart failure with a grade 1 diastolic dysfunction and an ejection fraction of approximately greater than 55% as noted on last echocardiogram in October 2016. 9. 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 10. Acute mental status change secondary to above sepsis and urinary tract infection showing improvement with IV fluids and initiation of antibiotic therapy. PLAN: The patient will be admitted to the hospital for initiation of antibiotic therapy. Given that she has multiple allergies to a large population of antibiotic classes, will start her on Bactrim as she is currently not indicating allergies to this as well as her last culture results showed a Klebsiella pneumoniae species that was sensitive to Bactrim. Fluid status is to be monitored closely as she did get a liter of fluids, normal saline in the Emergency Department. This will be followed-up with continued fluids, half normal saline with 20 of potassium at 80 an hour. Will resume her home medications once they are updated and verified in the electronic medical records. She will be on DVT prophylaxis as per protocol. Her Bactrim will be scheduled every 12 hours with close monitoring of her renal function given her advanced age and decreasing creatinine clearance. Will anticipate length of stay to be at least 1 to 3 days. Until then continue to monitor and treat appropriately. #[id number] [facility]
[2017-02-05] MEDS ORDERED: DEXTROSE 50% 25 GM/50 ML SYG IV PRN (00:50)
[2017-02-05] MEDS ORDERED: SODIUM CHLORIDE 0.9% (FLUSH) 10 ML SYG IV PRN (00:50)
[2017-02-05] MEDS ORDERED: GLUCAGON INJ 1 MG VIAL SUBCU PRN (00:50)
[2017-02-05] MEDS ORDERED: DEXTROSE 5% 250ML 250 ML ONE (01:13)
[2017-02-05] MEDS: SULFA/TRIMETH INJ 800/160 PER 10 ML in DEXTROSE 5% 250ML 250 ML IVPB SCH ×2 (01:15→12:35)
[2017-02-05] MEDS: IV SET AND CAP CHANGE INJ INJ SCH (01:30)
[2017-02-05] MEDS ORDERED: AZITHROMYCIN IV 500 MG in SODIUM CHLORIDE 0.9% 250ML 250 ML IVPB SCH (01:30)
[2017-02-05] MEDS ORDERED: SODIUM CHLORIDE 0.9% 250ML 250 ML ONE (03:37)
[2017-02-05] MEDS ORDERED: AZITHROMYCIN IV 500 MG VIAL IVPB ONE (03:38)
[2017-02-05] MEDS: AZITHROMYCIN IV 500 MG in SODIUM CHLORIDE 0.9% 250ML 250 ML IVPB SCH (04:05)
[2017-02-05] MEDS ORDERED: POTASSIUM CHLORIDE 20 MEQ TAB PO ONE (08:14)
[2017-02-05] MEDS: INSULIN LISPRO 100 UNITS/ML PEN SUBCU SCH ×4 (08:28→21:00)
--- NOTE | 2017-02-05 09:03 | PCM.CORE ---
Physician DVT/VTE - Prophylaxis Currently: Patient already on anticoagulation therapy - [place] - Nurse DVT Assessment & Total Each Risk Factor Represents 3 Points: Age over 75 years, Hx of DVT/PE, Family Hx thrombosis, Medical PT with Hx of NH, CHF, Severe infection/sepsis Each Risk Factor Represents 2 Points: Malignancy (present/past) Each Risk Factor Represents 1 Point: Medical PT at Bed Rest Each Risk Factor is 1 Point: Serious Lung disease (pnemonia <1month, COPD, emphysema,etc) DVT Assessment Score: 16 - 5 or more Very High Risk Treatments: Early Ambulation *, Sequential Compression Device
[2017-02-05] MEDS: VALSARTAN 80 MG TAB PO SCH ×2 (10:01→21:00)
[2017-02-05] MEDS: ALLOPURINOL 300 MG TAB PO SCH (10:01)
[2017-02-05] MEDS: guaiFENesin ER TAB 600 MG TAB PO SCH ×2 (10:01→21:00)
[2017-02-05] MEDS: APIXABAN 2.5 MG TAB PO SCH ×2 (10:01→21:00)
[2017-02-05] MEDS: predniSONE 5 MG TAB PO SCH (10:01)
[2017-02-05] MEDS: SITagliptin 50 MG TAB PO SCH (10:01)
[2017-02-05] MEDS: GABAPENTIN 100 MG CAP PO SCH ×2 (10:01→21:00)
[2017-02-05] MEDS: amLODIPine BESYLATE 5 MG TAB PO SCH (10:02)
[2017-02-05] MEDS: METOPROLOL SUCCINATE XL 25 MG TAB PO SCH ×2 (10:02→21:00)
[2017-02-05] MEDS ORDERED: SULFA/TRIMETH INJ 800/160 PER 10 ML in DEXTROSE 5% 250ML 250 ML IVPB SCH (13:00)
[2017-02-05] MEDS: KCL 20MEQ/0.45% NS 1,000 ML IVS PRN (14:48)
[2017-02-05] MEDS ORDERED: SODIUM CHLORIDE 0.9% 500ML 0 ML ONE (15:26)
[2017-02-05] MEDS: ACETAMINOPHEN 325 MG TAB PO PRN (15:44)
[2017-02-05] MEDS ORDERED: SODIUM CHLORIDE 0.9% 500ML 500 ML IVS ONE (15:46)
[2017-02-05] MEDS ORDERED: ONDANSETRON INJ 4 MG/2 ML VIAL ONE (16:32)
[2017-02-05] MEDS ORDERED: ONDANSETRON 4 MG TAB PO PRN (16:41)
[2017-02-05] MEDS ORDERED: PROMETHAZINE HCL INJ 25 MG/ML VIAL ONE (16:52)
[2017-02-05] MEDS ORDERED: SODIUM CHLORIDE 0.9% 50ML 50 ML ONE (16:53)
[2017-02-05] MEDS ORDERED: ACETAMINOPHEN SUPPOSITORY 650 MG PR ONE (16:53)
[2017-02-05] MEDS: ACETAMINOPHEN SUPPOSITORY 650 MG PR PRN (17:06)
[2017-02-05] MEDS ORDERED: ONDANSETRON INJ 4 MG/2 ML VIAL IV ONE (17:18)
[2017-02-05] MEDS ORDERED: ONDANSETRON INJ 4 MG/2 ML VIAL IV PRN (17:20)
[2017-02-05] MEDS ORDERED: PROMETHAZINE HCL INJ 6.25 MG in SODIUM CHLORIDE 0.9% 50ML 50 ML IVPB ONE (17:20)
[2017-02-05] MEDS ORDERED: PANTOPRAZOLE SODIUM IV 40 MG VIAL IV SCH (17:30)
[2017-02-05] MEDS: ASPIRIN EC 81 MG TAB PO SCH (21:00)
[2017-02-05] MEDS: AMITRIPTYLINE HCL 25 MG TAB PO SCH (21:00)
[2017-02-06] MEDS ORDERED: SODIUM CHLORIDE 0.9% 250ML 250 ML ONE (01:12)
[2017-02-06] MEDS ORDERED: AZITHROMYCIN IV 500 MG VIAL IVPB ONE (01:12)
[2017-02-06] MEDS ORDERED: DEXTROSE 5% 250ML 250 ML ONE ×2 (01:30→13:37)
[2017-02-06] MEDS: SULFA/TRIMETH INJ 800/160 PER 10 ML in DEXTROSE 5% 250ML 250 ML IVPB SCH ×2 (01:44→13:53)
[2017-02-06] MEDS: AZITHROMYCIN IV 500 MG in SODIUM CHLORIDE 0.9% 250ML 250 ML IVPB SCH (04:07)
[2017-02-06] MEDS: INSULIN LISPRO 100 UNITS/ML PEN SUBCU SCH ×4 (04:17→21:00)
[2017-02-06] MEDS ORDERED: SODIUM CHLORIDE 0.9% 500ML 500 ML IVS ONE ×2 (06:36→21:51)
[2017-02-06] MEDS: KCL 20MEQ/0.45% NS 1,000 ML IVS PRN (06:43)
[2017-02-06] MEDS ORDERED: METOPROLOL SUCCINATE XL 25 MG TAB PO ONE (08:13)
[2017-02-06] MEDS: METOPROLOL SUCCINATE XL 25 MG TAB PO SCH (08:40)
[2017-02-06] MEDS: GABAPENTIN 100 MG CAP PO SCH ×2 (08:49→21:25)
[2017-02-06] MEDS: APIXABAN 2.5 MG TAB PO SCH ×2 (08:49→21:26)
[2017-02-06] MEDS: SITagliptin 50 MG TAB PO SCH (08:49)
[2017-02-06] MEDS: guaiFENesin ER TAB 600 MG TAB PO SCH ×2 (08:49→21:25)
[2017-02-06] MEDS: predniSONE 5 MG TAB PO SCH (08:50)
[2017-02-06] MEDS: amLODIPine BESYLATE 5 MG TAB PO SCH (08:51)
[2017-02-06] MEDS: VALSARTAN 80 MG TAB PO SCH ×2 (08:53→21:25)
[2017-02-06] MEDS ORDERED: IPRATROPIUM/ALBUTEROL 3 ML VIAL NEB ONE (10:07)
[2017-02-06] MEDS ORDERED: SULFA IVPB ONE (13:46)
[2017-02-06] MEDS ORDERED: TRIMETH IVPB ONE (13:46)
[2017-02-06] MEDS: ACETAMINOPHEN 325 MG TAB PO PRN ×2 (13:53→21:25)
[2017-02-06] MEDS ORDERED: GENTAMICIN IVPB SCH ×2 (16:30)
[2017-02-06] MEDS ORDERED: GENTAMICIN PER PHARMACY IVPB SCH (16:30)
[2017-02-06] MEDS ORDERED: GENTAMICIN PREMIX 80MG/100ML 100 ML IVPB ONE (16:33)
[2017-02-06] MEDS ORDERED: GENTAMICIN SULFATE 20 MG/2 ML ONE (16:34)
[2017-02-06] MEDS: GENTAMICIN IVPB SCH ×2 (16:41)
[2017-02-06] MEDS: PANTOPRAZOLE SODIUM TAB 40 MG PO SCH (17:17)
--- NOTE | 2017-02-06 20:44 | PN ---
DATE: 02/06/17 SUPERVISING PHYSICIAN: Krystian Iraheta M.D. SUBJECTIVE: Yesterday afternoon the patient had an episode of confusion and a slight increase in her temperature, but only to a maximum of 99.8. She required some Ativan for agitation as well as she was having some nausea and vomiting. She was made NPO status and given some Phenergan, and was able to rest through the night. This morning, she was much more her self baseline status mentally. No longer having any nausea or vomiting, or any other complaints. She remained afebrile. I did visit at length with the family regarding treatment of the underlying infection with Bactrim awaiting final culture results to further treat based off those. 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 OBJECTIVE: VITAL SIGNS: T max 99.8, pulse 59, blood pressure lowest this morning was 77/57 with respirations 18, satting 97% on 2 liters nasal cannula. She did improve after receiving a 500 mL bolus of fluids to 140/66. CHEST: Lungs remain clear to auscultation. HEART: Regular rate and rhythm. ABDOMEN: Soft, non-tender. Positive bowel sounds. EXTREMITIES: No clubbing, cyanosis or edema noted. NEUROLOGIC: She is alert and oriented and at her baseline mental status this morning. LABORATORY: CBC shows white count of 7.3, hemoglobin 9.3, hematocrit 28.9, platelet count 69,000. Differential does show a left shift that has resolved in regards to the number of bands which maximized at 11. Chemistries show normal electrolytes today with potassium 4.5, BUN 19, creatinine 1.04. Blood sugars have been from 101 to 271. Calcium 7.8. Liver functions show to be within normal limits. Repeat lactic acid yesterday afternoon was at 1.7. MICROBIOLOGY: She did have 2 sets of blood cultures this morning that were drawn yesterday afternoon that show gram-negative rods as well as final urine culture results showed Escherichia coli that was unfortunately resistant to Bactrim, but sensitive to Amikacin and Gentamicin. Her first set of blood cultures remain negative at 24 hours. ASSESSMENT: 1. Gram-negative kushal bacteremia with source being identified as a urinary tract infection with Escherichia coli with sensitivity patterns showing resistant to Bactrim. 2. Sepsis as noted secondary to #1 showing good improvement with initiation of antibiotics, although initial culture showed resistant to Bactrim with the patient being transitioned to Gentamicin. 3. Hypochromic microcytic anemia secondary to chronic illness with thrombocytopenia likely secondary to underlying sepsis. 4. Type 2 diabetes mellitus on oral therapy. 5. Chronic renal insufficiency with some exacerbation secondary to #1. 6. Elevated liver functions, resolved. Unknown etiology felt to be secondary to underlying sepsis process. 7. Chronic congestive heart failure with grade 1 diastolic dysfunction and ejection fraction approximately greater than 55% as noted on last echocardiogram in October 2016. 8. Longstanding history of deep venous thrombosis and previous pulmonary embolism on correction anticoagulation therapy with Eliquis. 9. Acute mental status change secondary to sepsis and metabolic encephalopathy secondary to an infectious process due to the underlying urinary tract infection from Escherichia coli. PLAN: I did talk to Dr. Moncada, Infectious Disease, this morning in regards to the findings of the gram-negative kushal bacteremia as soon as we had the culture results back and sensitivities to treat appropriately based off current antibiotic therapy either with Gentamicin, Amikacin or tetracycline. Culture results did show final results Escherichia coli that was sensitive to Amikacin and Gentamicin, therefore the patient was transitioned to Gentamicin per Pharmacy protocol. Bactrim has been stopped. She did get a saline bolus of 500 this morning and has been stable as far as blood pressure and clinically is improving. Will anticipate a need of lengthy course of treatment at least for 14 days. Anticipate Acute Care length to be at least another 72 hours for initiation of appropriate antibiotic therapy starting today. Will monitor the patient closely and anticipate discharge once clinically stable to make arrangements for continued treatment of underlying bacteremia with Gentamicin as appropriate. Until then, will continue to monitor and treat appropriately. #[id number] [facility]
[2017-02-06] MEDS: AMITRIPTYLINE HCL 25 MG TAB PO SCH (21:25)
[2017-02-06] MEDS: ASPIRIN EC 81 MG TAB PO SCH (21:25)
[2017-02-07] MEDS: KCL 20MEQ/0.45% NS 1,000 ML IVS PRN ×2 (00:12→18:46)
[2017-02-07] MEDS ORDERED: LEVALBUTEROL NEBS 1.25 MG/3 ML VIAL NEB ONE (04:28)
[2017-02-07] MEDS: LEVALBUTEROL NEBS 1.25 MG/3 ML VIAL NEB PRN (04:29)
[2017-02-07] MEDS: PANTOPRAZOLE SODIUM TAB 40 MG PO SCH (05:52)
[2017-02-07] MEDS: INSULIN LISPRO 100 UNITS/ML PEN SUBCU SCH ×4 (08:15→20:59)
[2017-02-07] MEDS: SITagliptin 50 MG TAB PO SCH (08:37)
[2017-02-07] MEDS: APIXABAN 2.5 MG TAB PO SCH ×2 (08:37→21:24)
[2017-02-07] MEDS: GABAPENTIN 100 MG CAP PO SCH ×2 (08:38→21:24)
[2017-02-07] MEDS: ALLOPURINOL 300 MG TAB PO SCH (08:38)
[2017-02-07] MEDS: predniSONE 5 MG TAB PO SCH (08:38)
[2017-02-07] MEDS: guaiFENesin ER TAB 600 MG TAB PO SCH ×2 (08:38→21:24)
[2017-02-07] MEDS: amLODIPine BESYLATE 5 MG TAB PO SCH (08:39)
--- NOTE | 2017-02-07 08:47 | RAD ---
EXAM DESCRIPTION: Chest,1 View CLINICAL HISTORY: sob. 87-year-old female shortness of breath. COMPARISON: February 04, 2017. FINDINGS: Portable semiupright view of the thorax. There is right midlung chest wall attenuation artifact possibly from breast implant or soft tissues. There is some obscuration of the right heart margin similar appearance to previous study suggesting a right middle lobe airspace opacity. This is likely stable when accounting for differences in position and technique. Dependent change seen in the retrocardiac portion of the left lower lobe. There is mild cephalization stable in appearance. Heart size within normal limits for technique. Thoracic aortic calcified atherosclerotic disease. Bilateral axillary susan dissection clips are noted. IMPRESSION: Relatively stable chest when accounting for differences in position and technique. Electronically signed by: Pedro Hicks MD 02/07/2017 8:46 AM CDT
--- NOTE | 2017-02-07 08:53 | CT ---
EXAM DESCRIPTION: Head CLINICAL HISTORY: acute mental status change COMPARISON: December 31, 2016 TECHNIQUE: Noncontrast transaxial CT images of the head are obtained from base to vertex. This exam was performed according to our departmental dose-optimization program, which includes automated exposure control, adjustment of the mA and/or kV according to patient size and/or use of iterative reconstruction technique. FINDINGS: The midline structures are not displaced. Sulci are age-appropriate. There are areas of decreased attenuation in the periventricular white matter and the white matter of the centrum semiovale. There is no evidence of mass, mass-effect, hydrocephalus, or acute intracranial hemorrhage. No abnormal extra axial fluid collection is seen. Bone windows show no evidence of depressed skull fracture. The visualized paranasal sinuses are unremarkable. IMPRESSION: 1. Age-appropriate atrophy with evidence of old small vessel ischemic type changes seen. 2. No acute abnormality is seen on noncontrast CT of the head. Electronically signed by: Lionel Duran MD 02/07/2017 8:52 AM CDT
[2017-02-07] MEDS: ACETAMINOPHEN 325 MG TAB PO PRN ×2 (14:11→20:16)
[2017-02-07] MEDS ORDERED: FLUCONAZOLE 150 MG TAB PO ONE (15:38)
[2017-02-07] MEDS ORDERED: DEXTROSE 5% 250ML 0 ML ONE (16:31)
[2017-02-07] MEDS ORDERED: GENTAMICIN PREMIX 80MG/100ML 100 ML IVPB ONE (16:32)
[2017-02-07] MEDS ORDERED: GENTAMICIN SULFATE 20 MG/2 ML ONE (16:33)
[2017-02-07] MEDS: GENTAMICIN IVPB SCH ×2 (16:38)
[2017-02-07] MEDS ORDERED: BIFIDOBACTERIUM INFANTIS 4 MG CAP PO SCH (21:00)
[2017-02-07] MEDS: ASPIRIN EC 81 MG TAB PO SCH (21:24)
[2017-02-07] MEDS: AMITRIPTYLINE HCL 25 MG TAB PO SCH (21:24)
[2017-02-08] MEDS: IV SET AND CAP CHANGE INJ INJ SCH (00:12)
[2017-02-08] MEDS: PANTOPRAZOLE SODIUM TAB 40 MG PO SCH (05:39)
[2017-02-08] MEDS: amLODIPine BESYLATE 5 MG TAB PO SCH (08:14)
[2017-02-08] MEDS: ACETAMINOPHEN 325 MG TAB PO PRN (08:14)
[2017-02-08] MEDS: predniSONE 5 MG TAB PO SCH (08:15)
[2017-02-08] MEDS: guaiFENesin ER TAB 600 MG TAB PO SCH ×2 (08:15→21:21)
[2017-02-08] MEDS: GABAPENTIN 100 MG CAP PO SCH ×2 (08:15→21:20)
[2017-02-08] MEDS: APIXABAN 2.5 MG TAB PO SCH ×2 (08:16→21:20)
[2017-02-08] MEDS: INSULIN LISPRO 100 UNITS/ML PEN SUBCU SCH ×4 (08:18→21:25)
[2017-02-08] MEDS: SITagliptin 50 MG TAB PO SCH (08:18)
[2017-02-08] MEDS: LEVALBUTEROL NEBS 1.25 MG/3 ML VIAL NEB PRN ×2 (08:45→23:00)
--- NOTE | 2017-02-08 09:27 | PN ---
SUPERVISING PHYSICIAN: Krystian Iraheta MD DATE: 02/07/17 SUBJECTIVE: The patient has shown good clinical improvement. She has no longer had any episodes of extreme fevers and has shown good output and is hemodynamically stable. She is able to tolerate a diet and has been transitioned from Bactrim to gentamicin. All her blood cultures showed the same species of E. coli from the urine as well as sensitivity pattern. OBJECTIVE: VITAL SIGNS: T-max 100.1. Pulse 82. Blood pressure 133/75. Respirations 20. Saturation 95% on 4 liters nasal cannula at rest. I&Os show positive balance of 2572 with 4122 in, 1550 out. She has had one bowel movement. Weight 62.2 kg. CHEST: Lungs clear to auscultation bilaterally, just slightly diminished towards the bases bilaterally. HEART: Slightly irregular rate and rhythm with no appreciable murmurs. ABDOMEN: Soft, nontender. Positive bowel sounds. EXTREMITIES: No cyanosis, clubbing or edema. NEUROLOGIC: She is alert to herself, family members, location. She is confused to time of year, but remains very pleasant and cooperative. She does have some issues with equilibrium on standing, but shows no outright localizing or lateralizing neurologic deficits. LABORATORY: White count 5,600 with hemoglobin 10.2, hematocrit 31.6, platelet count low at 68,000. Differential today is improved, but continues to have elevated bands. Electrolytes within normal limits with potassium 4.7, BUN 14, creatinine 0.8. Glucoses have been from 106 to 137, calcium 8.0. Liver functions within normal limits. Two stool occult bloods were negative. MICROBIOLOGY: Two sets of blood cultures, both aerobic and anaerobic showed E. coli with sensitivity pattern sensitive to gentamicin and same pattern resistance as noted in urinalysis. Additional sets of blood cultures drawn on admission remain negative at 48 hours. RADIOLOGY: Chest x-ray today per radiologic interpretation , single view, shows relatively stable chest. CT of the head without contrast shows age- appropriate atrophy with evidence of small vessel ischemic changes seen and no acute abnormalities were noted on non-contrast CT of the head. ASSESSMENT: 1. Gram-negative kushal bacteremia secondary to underlying urinary tract infection with blood cultures and urine cultures showing Escherichia coli with same sensitivity pattern with resistance to Bactrim, but sensitive to gentamicin with the patient being transitioned to gentamicin and continues to show good clinical improvement. 2. Sepsis as noted secondary to #1, continuing to show good improvement after initiation of antibiotics and being transitioned to gentamicin. 3. Hypochromic/microcytic anemia secondary to chronic illness with thrombocytopenia, likely secondary to underlying sepsis. 4. Type 2 diabetes mellitus on oral therapy, stable. 5. Chronic renal insufficiency with some exacerbation, showing improvement with IV fluids. 6. Elevated liver functions, resolved. Unknown etiology, felt to be secondary to underlying sepsis. 7. Chronic congestive heart failure with grade 1 diastolic dysfunction with ejection fraction approximately greater than 55% as noted on last echocardiogram in October 2016. 8. 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 9. Acute mental status change secondary to sepsis and metabolic encephalopathy secondary to an infectious process due to the underlying urinary tract infection from Escherichia coli, showing good clinical improvement with initiation of antibiotic therapy and fluids. PLAN: We will continue with gentamicin per pharmacy protocol today and monitor the patient closely. She is starting to take adequate p.o. fluids. We will start to transition her off of her IV fluids to prevent any fluid overload from past fluid resuscitation efforts. We will continue to monitor cultures and anticipate length of treatment to be at least 14 days with need to re-culture blood probably within the next 72 hours or sooner. She will need physical therapy consultation once clinically stable as she is showing some disequilibrium to ensure the patient is safe once discharged. Given that she is on gentamicin, arrangements will need to be made for possible transition to Swing Bed at some point for continuation of antibiotic therapy. Given that the patient has a significant amount of allergies to more common antibiotics, suggestion has been made to the family as well as discussion with Dr. Boyce on further eliciting true allergies to prevent any further complications for future infections that could occur. Again, hopefully we will be able to slowly transition the patient to Swing Bed setting once she continues to show good clinical improvement. Dr. Moncada, again, has been consulted as well as her oncology group. We will keep close touch with all parties as the patient continues to improve. Until then, we will continue to monitor the patient closely and treat appropriately. #[id number] [facility]
[2017-02-08] MEDS ORDERED: VALSARTAN 80 MG TAB PO SCH (10:30)
[2017-02-08] MEDS ORDERED: cefTRIAXone SODIUM 500 MG in SODIUM CHL 0.9% 50ML MIN-BAG+ 50 ML IVPB SCH (14:00)
[2017-02-08] MEDS: METOPROLOL SUCCINATE XL 25 MG TAB PO SCH ×2 (14:04→21:19)
[2017-02-08] MEDS: SODIUM CHLORIDE 0.9% (FLUSH) 10 ML SYG IV SCH ×2 (14:05→21:24)
[2017-02-08] MEDS ORDERED: SODIUM CHL 0.9% 50ML MIN-BAG+ 50 ML IVPB ONE (14:38)
--- NOTE | 2017-02-08 14:59 | PN ---
DATE: 02/08/17 SUBJECTIVE: The patient is sitting up eating her lunch. Her appetite is much improved according to the family. She has been feeling very poorly with even some altered level of consciousness over the last two to three days. The patient is cheerful and is able to interact more appropriately and normally with the family compared to even earlier today. No significant shortness of breath, no nausea or vomiting., no diarrhea. She sometimes gets diarrhea with yogurt exposure. OBJECTIVE: VITAL SIGNS: Temperature 100.7 at 10 o'clock this morning. Pulse 100. Blood pressure 179/75. Pulse oximetry 95% on 3 liters. Weight 61.83 kg. LUNGS: Occasional rhonchi, especially on the left base compared to the right. HEART: Regular. ABDOMEN: Soft, slightly distended, no organomegaly or masses noted. LABORATORY: White count 3,900 with 81% neutrophils. Hemoglobin is up to 10.7 with platelet count down to 67 suggesting a pancytopenic state. Chemistries showed potassium 4.8, BUN 15, creatinine 0.78, glucose fasting 69. Urinalysis four days ago was positive for nitrites. Stool guaiacs negative on two tests. Cultures initially on blood were negative on the evening of admission. Urine culture showed E. coli with fluoroquinolone and sulfa resistance. Blood cultures obtained about 16 hours later on the afternoon of 02/05/17 were positive with all four tubes being positive with the same organism that was present in the urine, namely E. coli species. This no doubt reflects the early onset of the hematogenous spread, probably from a pyelonephritis source with associated urinary tract infection. Chest x-ray obtained yesterday is stable with no significant changes from admission. ASSESSMENT: 1. Acute Escherichia coli bacteremia with associated sepsis with high fever and altered level of consciousness, showing some clinical improvement after treatment initiated with aminoglycoside being gentamicin. She will require this for 14 days minimum. 2. Evidence of pancytopenia with anemia, showing a hyperchromic/normocytic presentation, yet also with thrombocytopenia and white count initially 1,800 with 70% neutrophils, up to 7,300 and now down to 3,900 with 81% neutrophils. 3. Type 2 diabetes mellitus on oral therapy, stable. 4. Chronic renal insufficiency with some mild exacerbation, showing some improvement with IV fluids. 5. Elevated liver functions, resolved. Probably secondary to the underlying infectious condition. 6. Chronic congestive heart failure with grade 1 diastolic dysfunction with ejection fraction of approximately 55% as noted on last echocardiogram in October 2016. 7. 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 8. Acute altered level of consciousness with mental status changes, probably secondary to the underlying sepsis with a metabolic encephalopathy from the Escherichia coli or gram negative kushal bacteremia with clinical improvement noted after initiation of parenteral antibiotic as well as fluid supplementation. PLAN: We will continue with increased activity level. Physical therapy to evaluate. She is a fall risk. Get her up into the chair twice daily. Start Align twice a day. Continue with gentamicin for a total of 14 days. She has had a questionable history of ceftriaxone allergy, but it was related to a significantly infiltrated IV site with no systemic allergic symptoms, only the localized swelling and tenderness and erythema from the infusion and loss of a vein when she was being treated for pneumonia. The possibility of re- introducing her to see if she is in fact allergic to the ceftriaxone which will allow her to be treated for a week with aminoglycoside and then shifting over to a third generation p.o. cephalosporin for an additional week for a total of two weeks of treatment. Observe closely. #[id number] [facility]
[2017-02-08] MEDS ORDERED: GENTAMICIN PREMIX 80MG/100ML 100 ML IVPB ONE (16:40)
[2017-02-08] MEDS: GENTAMICIN IVPB SCH ×2 (16:46)
[2017-02-08] MEDS ORDERED: BIFIDOBACTERIUM INFANTIS 4 MG CAP PO SCH (21:00)
[2017-02-08] MEDS: AMITRIPTYLINE HCL 25 MG TAB PO SCH (21:19)
[2017-02-08] MEDS: ASPIRIN EC 81 MG TAB PO SCH (21:21)
[2017-02-09] MEDS ORDERED: HALOPERIDOL LACTATE INJ 5 MG/ML VIAL IM ONE (02:30)
[2017-02-09] MEDS: ACETAMINOPHEN SUPPOSITORY 650 MG PR PRN (03:06)
--- NOTE | 2017-02-09 03:44 | RAD ---
EXAM: Single view chest. INDICATION: Shortness of breath. COMPARISON: Chest x-ray: 02/07/2017. FINDINGS: There are diffuse interstitial and airspace opacities, worse within the right lung. The heart size is stable. There is no pneumothorax. Small pleural effusions may be present. The bones are demineralized. IMPRESSION: Diffuse interstitial and airspace opacities, which may represent pulmonary edema and/or pneumonia. Electronically signed by: Russ Roque MD 02/09/2017 3:42 AM CDT Workstation: [id number]
[2017-02-09] MEDS ORDERED: methylPREDNISolone SODIUM SUC 40 MG/ML VIAL IV ONE (04:49)
[2017-02-09] MEDS ORDERED: SODIUM CHLORIDE 0.9% 250ML 250 ML ONE (04:55)
[2017-02-09] MEDS ORDERED: AZITHROMYCIN IV 500 MG VIAL IVPB ONE (04:56)
[2017-02-09] MEDS ORDERED: SODIUM CHLORIDE 0.9% 1000ML 1,000 ML IVS PRN (04:59)
[2017-02-09] MEDS ORDERED: AZITHROMYCIN IV 500 MG in SODIUM CHLORIDE 0.9% 250ML 250 ML IVPB SCH (05:00)
[2017-02-09] MEDS: PANTOPRAZOLE SODIUM TAB 40 MG PO SCH (07:40)
--- NOTE | 2017-02-09 08:09 | DS ---
DISCHARGE DIAGNOSIS: 1. Acute Escherichia coli bacteremia with associated sepsis with high fever and altered level of consciousness with urinary tract infection illustrated by culture as well as subsequent blood cultures positive for the same Escherichia coli species. This was treated with gentamicin because of the significant allergy history of the patient. 2. Evidence of pancytopenia with anemia, showing a hyperchromic/normocytic presentation, yet also with thrombocytopenia and leukopenia, initially 1,800 with 70% neutrophils, showing some slight rise in the total count subsequently. 3. History of type 2 diabetes mellitus on oral therapy, stable. 4. History of breast cancer with bilateral mastectomies. 5. Chronic renal insufficiency with some mild exacerbation, showing improvement with IV fluids. 6. Elevated liver functions, improved. Probably secondary to the underlying infectious condition. 7. History of chronic congestive heart failure with grade 1 diastolic dysfunction with ejection fraction of approximately 55% noted on echocardiogram of October 2016. 8. Longstanding history of deep venous thrombosis and recent pulmonary embolism noted in October 2016 in [place], requiring group home Eliquis for anticoagulation and prophylaxis. 9. Acute altered level of consciousness with mental status changes and associated hypoxia prior to transfer requiring BiPAP respiratory support, possibly indicative of underlying bilateral pneumonia process worsening versus pulmonary edema with treatment initiated and support to be continued. 10. Multiple drug allergies noted to include cephalosporins, fluoroquinolones, meropenem and penicillin. HISTORY OF PRESENT ILLNESS: This 87-year-old, white female was brought to the Emergency Room from home and subsequent admitted because of fairly significant febrile illness with altered mental status and ability to function. She was found to have some persistent findings on her chest x-ray from a recent right middle and right lower lobe pneumonia process. She has had recurring urinary tract infections with Klebsiella and E. coli species. Her urinalysis in the Emergency Room suggested a urinary tract infection with cultures obtained. The patient was admitted to the hospital for parenteral therapy because of the patient's significant presentation and debility and required ongoing supportive care. Initial lactic acid was within normal limits at 1.6, but the patient was treated as if she might have a septicemic presentation with IV fluids and ongoing support. By the next afternoon, it was found that urine cultures showed an E. coli species that was resistant to the IV Bactrim that was started in the Emergency Room. This medication was stopped and a repeat blood culture was obtained which eventually showed E. coli organisms in all of the collected specimen bottles. Sensitivity was very similar to that found on the urinalysis cultures on the evening of admission to the hospital. The patient's condition remained serious with altered level of consciousness and showed slow improvement in that awareness until she was much improved on the afternoon of her third hospital day, 02/08/17. She had been started on gentamicin after discussing with infectious disease specialist in [place] because of her significant allergy history. Later on the morning of her eventual transfer to [facility], she had worsening shortness of breath with marked hypoxia with saturations in the 70s and 80s even with fairly high flow. Whether this represented a recurring pulmonary emboli versus pneumonia or pulmonary edema after the chest x-ray was obtained would require ongoing treatment options. The patient continues on Eliquis as a prophylaxis for DVT formation and pulmonary emboli from her previous pulmonary emboli episode in [place] this last summer. LABORATORY: Initial white count was 1.800 with 70% neutrophils. Hemoglobin 11.5, platelet count 117,000. On the morning of discharge, her white count was 5,100 with 84% neutrophils, hemoglobin 8.8, platelet count 77,000. Chemistries on discharge showed BUN 23, creatinine 1.05, potassium 4, sodium 139, glucose 99 fasting, lactic acid repeat was down to 0.7. Liver enzymes were fairly normal. Albumin 2.4. Initial beta natriuretic peptide was elevated at 451 and potassium was down to 2.9, but with supplementation increased towards normal of 4.6 at discharge. Urinalysis initially showed positive nitrites with pyuria, some hematuria as well as 3+ bacteruria. Repeat on 02/08/17 showed some hematuria, otherwise clear. Two stool guaiac tests were both negative. Gentamicin peak was reported as 6.2, while the trough was less than 0.5. Cultures obtained revealed initial blood cultures negative, but repeat cultures on 02/05/17 at 4:24 PM were all positive for Escherichia coli, which is the same general organism as noted in the urine from the night before. RADIOLOGY: Persistence of the right lower lobe infiltrates were noted, showing some improvement over previous exam. On the morning of discharge, chest x-rays did how bilateral evidence of infiltrates, suggesting either diffuse interstitial involvement with pulmonary edema and/or pneumonia. Head CT revealed no acute findings. HOSPITAL COURSE: The patient's condition slowly was getting better until the afternoon of the day before her transfer. On the evening and hospitality specialist of her transfer, she developed significant hypoxia with respiratory distress requiring BiPAP support to assist with the oxygenation process. After sedation , she relaxed and was doing much better, but will require specialized higher level of care to continue to provide her with the best possible chance for survival. The patient is a DNR. PLAN: The patient will be transferred to [facility] to the ICU telemetry bed being accepted by the hospitalist, Dr. Gonsalez. Her condition was also discussed with Dr. Tejal Olson, locum tenens psychiatrist, phone number [phone]. Condition also discussed with Dr. Shine Taylor, appian bpm developer, phone number [phone], who are in agreement that the patient would benefit by some additional higher level of care. The patient will be transferred to [facility] via air evac so that she will be able to have the benefit of BiPAP during that transport. She will be admitted to the ICU telemetry unit. Summation of her current medical records will be sent with the patient. She continues on gentamicin to which has been added this morning azithromycin parenterally. Repeat blood cultures are obtained at the time of her febrile episodes on the morning of transfer with results pending and to be reviewed with [facility] upon completion. Condition is serious. Further followup with Dr. Boyce at the [facility] after discharge. #[id number] [facility]
[2017-02-09] MEDS: LEVALBUTEROL NEBS 1.25 MG/3 ML VIAL NEB PRN (08:24)
[2017-02-09 13:50] VITALS: BP 116/75; TEMP 100.7; O2SAT 98
== END 2017-02-09 10:40 | disposition short-term general hospital (02) | DRG 871 ==
LOC: ER 22:35 → OBSVTOIN 02-05 00:47 → MS 02-05 00:47
PROVIDERS: ADMIT Nurse Practitioner Family; ATTEND Emergency Medicine
DX: A41.51 Sepsis due to Escherichia coli [E. coli] (principal); J18.9 Pneumonia, unspecified organism; N39.0 Urinary tract infection, site not specified; I13.0 Hypertensive heart and chronic kidney disease with heart failure and stage 1 through stage 4 chronic kidney disease, or unspecified chronic kidney disease; D61.818 Other pancytopenia; I50.32 Chronic diastolic (congestive) heart failure; R79.89 Other specified abnormal findings of blood chemistry; E11.9 Type 2 diabetes mellitus without complications; N18.9 Chronic kidney disease, unspecified; R09.02 Hypoxemia; Z16.29 Resistance to other single specified antibiotic; Z66 Do not resuscitate; Z88.0 Allergy status to penicillin; Z88.1 Allergy status to other antibiotic agents; Z86.711 Personal history of pulmonary embolism; Z86.718 Personal history of other venous thrombosis and embolism; Z79.02 Long term (current) use of antithrombotics/antiplatelets; Z85.3 Personal history of malignant neoplasm of breast; Z79.84 Long term (current) use of oral hypoglycemic drugs; Z79.52 Long term (current) use of systemic steroids; Z79.82 Long term (current) use of aspirin; Z79.899 Other long term (current) drug therapy

== ENCOUNTER → 2017-02-20 | Outpatient (CLI) | payer BC, MEDICARE | END | disposition home or self-care (01) | LOC: GRHH 15:55 | PROVIDERS: ATTEND Family Medicine | DX: R19.7 Diarrhea, unspecified (principal) ==

== ENCOUNTER → 2017-02-23 | Outpatient (CLI) | payer BC, MEDICARE | END | disposition home or self-care (01) | LOC: GMAB 14:09 | PROVIDERS: ATTEND Family Medicine | DX: R06.02 Shortness of breath (principal) ==

== ENCOUNTER → 2017-03-22 | Outpatient (CLI) | payer BC, MEDICARE | LOC: GMAB 14:55 | PROVIDERS: ATTEND Family Medicine | DX: N39.0 Urinary tract infection, site not specified (principal) ==

== ENCOUNTER → 2017-04-07 | Outpatient (CLI) | payer BC, MEDICARE | END | disposition home or self-care (01) | LOC: GMAB 12:34 | PROVIDERS: ATTEND Family Medicine | DX: N39.0 Urinary tract infection, site not specified (principal) ==

== ENCOUNTER → 2017-05-09 | Outpatient (CLI) | payer BC, MEDICARE | END | disposition home or self-care (01) | LOC: GMAB 15:20 | PROVIDERS: ATTEND Family Medicine | DX: M35.3 Polymyalgia rheumatica (principal); R30.0 Dysuria ==

== ENCOUNTER → 2017-08-03 | Outpatient (CLI) | payer MEDICARE | LOC: GMAB 14:11 | PROVIDERS: ATTEND Family Medicine | DX: R06.02 Shortness of breath (principal) ==

== ENCOUNTER → 2017-09-04 | Outpatient (CLI) | payer MEDICARE ==
--- NOTE | 2017-09-05 12:20 | MRI ---
EXAM DESCRIPTION: Lumbar Spine w/o Contrast MRI. CLINICAL HISTORY: LESION OF SCIATIC NERVE COMPARISON: None. TECHNIQUE: Multiplanar, multiple standard sequences, non contrast MRI, lumbar spine. FINDINGS: L2: Depression of the superior endplate almost 50% of the vertebral body height centrally with diffuse marrow edema in the vertebral body mostly mid and superior regions with no definite extension into the pedicles bilaterally. No retropulsion. No canal stenosis. Normal marrow signal in the posterior elements. L1-2: Minimal disc desiccation and anterior endplate ridging and minimal bulging. Minimal posterior bulge abutting the thecal sac with mild canal narrowing. Minimal flavum ligament hypertrophy. Bilateral foramina are patent. L2-3: Minimal disc desiccation and anterior bulging. No significant posterior bulging. Minimal flavum ligament hypertrophy. Facets are negative. Canal and foramina are patent. No abnormal marrow edema. L5-S1: Significant disc space loss. Modic type II endplate reactive changes diffusely. Anterior disc remnant bulge. Posterior midline disc remnant bulge and posterior endplate spurs narrowing the canal and bilateral foramina. Right facet arthrosis and minimal right flavum ligament hypertrophy. 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 L4-5: Disc desiccation and minimal anterior bulging. Disc space maintained. No significant posterior bulge. Mild to moderate flavum ligament hypertrophy and facet arthrosis bilaterally impressing on the lateral thecal sac. Borderline mild canal stenosis. Mild bilateral foraminal narrowing. L3-4: Disc desiccation with disc space maintained. Superior L4 endplate Schmorl's node. No significant disc bulge. Bilateral flavum ligament hypertrophy with facets negative. Mild canal and bilateral foraminal narrowing. T12-L1: Minimal disc desiccation with disc space preserved and no significant bulging. Posterior elements unremarkable. Canal and foramina are patent. Conus terminates at this level. Lower thoracic spine and slightly flexed of the right. Paravertebral soft tissues paravertebral muscle atrophy.. Normal marrow signal in the remaining vertebral bodies and the posterior elements. Vertebral bodies are not compressed at any level. IMPRESSION: 1. Almost 50% depression of the central superior L2 endplate with diffuse marrow edema indicating an acute or subacute fracture. No anterior or retropulsion. Pedicles and posterior elements are unremarkable. No canal stenosis. 2. Desiccation of the L1-2 disc minimal posterior bulge but no canal or foraminal stenosis. 3. Diffuse spondylosis L5-S1 with disc remnant encroaching on the canal and bilateral foramina but no stenosis. 4. L4-5 disc desiccation with posterior flavum ligament hypertrophy and facet arthrosis and near stenosis of the canal. Electronically signed by: Mauro Laughlin MD 09/05/2017 12:18 PM CDT
== END ==
LOC: MRI 10:44
PROVIDERS: ATTEND Orthopaedic Surgery
DX: G57.01 Lesion of sciatic nerve, right lower limb (principal); M47.897 Other spondylosis, lumbosacral region

== ENCOUNTER → 2017-12-13 | Outpatient (CLI) | payer MEDICARE | LOC: GMAE 16:42 | PROVIDERS: ATTEND Family Medicine | DX: R06.02 Shortness of breath (principal) ==

== ENCOUNTER → 2018-03-09 | Outpatient (CLI) | payer MEDICARE | LOC: GMAE 10:52 | PROVIDERS: ATTEND Family Medicine | DX: I10 Essential (primary) hypertension (principal); E55.9 Vitamin D deficiency, unspecified ==

== ENCOUNTER 2018-04-19 16:02 | Inpatient (IN) | payer MEDICARE ==
[2018-04-19] MEDS ORDERED: SODIUM CHLORIDE 0.9% 1000ML 1,000 ML IVS ONE (16:45)
[2018-04-19] MEDS ORDERED: ACETAMINOPHEN 500 MG TAB PO ONE (16:45)
[2018-04-19] MEDS ORDERED: SODIUM CHLORIDE 0.9% (FLUSH) 10 ML SYG IV PRN (16:45)
--- NOTE | 2018-04-19 16:49 | ED.PDOC ---
History of Present Illness - General Chief Complaint: Fever Stated Complaint: fever, vomiting, confusion, hypoxia Time Seen by Provider: 04/19/18 16:36 Source: patient, family Exam Limitations: no limitations - History of Present Illness Initial Comments: PT PRESENTS TO THE ED WITH COMPLAINT OF FEVER, CONFUSION AND VOMITING X 1 DAY AFTER BEING DIAGNOSED WITH A UTI AND STARTED ON MACROBID. PT HAD A SIMILAR PRESENTATION LAST YEAR AND WAS FOUND TO HAVE UROSEPSIS. 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 Denies: short of breath Cardiology: Denies: chest pain, palpitations Gastrointestinal/Abdominal: States: nausea, vomiting Genitourinary: States: dysuria, pain - BILATERAL FLANKS. Denies: frequency Musculoskeletal: States: back pain. Denies: joint pain, joint swelling Skin: Denies: lesions, rash Neurological: Denies: headache, paresthesia Endocrine: States: no symptoms reported Hematologic/Lymphatic: States: no symptoms reported Past Medical History (General) - Patient Medical History Hx Seizures: No Hx Stroke: No Hx Asthma: Yes Hx of COPD: No Hx Cardiac Disorders: No Hx Congestive Heart Failure: No Hx Pacemaker: No Hx Hypertension: Yes Hx Diabetes: Yes Hx Cancer: Yes - breast Hx MRSA: No Surgical History: Hysterectomy, other - Vaccination History Hx Influenza Vaccination: Yes - 01/2018 Hx Pneumococcal Vaccination: Yes - 01/20/17 - Social History Hx Tobacco Use: Yes Hx Alcohol Use: No Hx Substance Use: No Hx Physical Abuse: No Hx Emotional Abuse: No Family Medical History - Family History Mother Family History: Unknown Living Status: Cause of : Complications of DM Hx Family Asthma: No Hx Family Congestive Heart Failure: Yes Hx Family Hypertension: Yes Hx Family Stroke: No Hx Cardiac Disease: No Hx Family Diabetes: Yes Hx Family Cancer: No Father Living Status: Cause of : Heart Failure Hx Family Asthma: No Hx Family Congestive Heart Failure: Yes Hx Family Hypertension: No Hx Family Stroke: No Hx Cardiac Disease: Yes Hx Family Diabetes: No Hx Family Cancer: Yes Physical Exam - Physical Exam General Appearance: Alert, Comfortable, No apparent distress, Well Developed, Well Groomed, Well Hydrated Eye Exam: bilateral normal ENT Exam: normal ENT inspection Neck: normal inspection Respiratory: lungs clear, normal breath sounds, no respiratory distress Cardiovascular/Chest: no edema, systolic murmur Gastrointestinal/Abdominal: non tender, soft, other - BILATERAL CVA TENDERNESS Extremity: swelling - 1+ BILATERAL LOWER EXTREMITIES Neurologic: alert, normal mood/affect Skin Exam: normal color, warm/dry Progress - Progress Progress: 04/19/18 17:58 PT RESTING COMFORTABLY ON SUPPLEMENTAL O2 ON RE-EVAL, LABS AND DIAGNOSTIC STUDIES DISCUSSED WITH FAMILY AT BEDSIDE. - Results/Orders Results/Orders: Laboratory Tests 04/19/18 04/19/18 04/19/18 16:25 16:25 16:45 WBC RBC Hgb Hct MCV MCH MCHC RDW Plt Count MPV Absolute Neuts (auto) Absolute Lymphs (auto) Absolute Monos (auto) Absolute Eos (auto) Absolute Basos (auto) Neutrophils % Lymphocytes % Monocytes % Eosinophils % Basophils % PT 10.5 INR 1.05 PTT (SP) 29.3 pCO2 pO2 HCO3 ABG pH ABG O2 Saturation ABG Base Excess ABG Deoxyhemoglobin Oxyhemoglobin % Carboxyhemoglobin % Methemoglobin % Sat Calc Total Hemoglobin Sodium 137 Potassium 3.8 Chloride 101 Carbon Dioxide 25 Anion Gap 14.8 BUN 17 Creatinine 0.83 BUN/Creatinine Ratio 20.5 H Random Glucose 148 H Serum Osmolality 278.1 Lactic Acid 1.1 Calcium 8.6 Total Bilirubin 0.9 AST 29 ALT 19 Alkaline Phosphatase 104 Creatine Kinase 34 CK-MB (CK-2) 0.7 CK-MB (CK-2) % Not Reportable Troponin I < 0.02 Serum Total Protein 6.1 L Albumin 3.3 Globulin 2.8 Albumin/Globulin Ratio 1.2 Urine Color Urine Appearance Urine pH Ur Specific [place] Urine Protein Urine Glucose (UA) Urine Ketones Urine Blood Urine Nitrite Urine Bilirubin Urine Urobilinogen Ur Leukocyte Esterase Urine RBC Urine WBC Ur Epithelial Cells Urine Bacteria 04/19/18 04/19/18 04/19/18 16:45 17:06 17:30 WBC 8.9 RBC 4.14 L Hgb 12.6 Hct 39.6 MCV 95.8 MCH 30.4 MCHC 31.8 L RDW 14.9 H Plt Count 194 MPV 9.0 Absolute Neuts (auto) 7.70 H Absolute Lymphs (auto) 0.50 L Absolute Monos (auto) 0.50 Absolute Eos (auto) 0.20 Absolute Basos (auto) 0.00 Neutrophils % 86.1 H Lymphocytes % 5.5 L Monocytes % 5.4 Eosinophils % 2.6 Basophils % 0.4 PT INR PTT (SP) pCO2 39 pO2 73 L HCO3 26.4 ABG pH 7.450 ABG O2 Saturation 95.7 ABG Base Excess 2.7 ABG Deoxyhemoglobin 4.2 Oxyhemoglobin % 93.1 L Carboxyhemoglobin % -0.1 L Methemoglobin % Sat 2.8 H Calc Total Hemoglobin 11.5 L Sodium Potassium Chloride Carbon Dioxide Anion Gap BUN Creatinine BUN/Creatinine Ratio Random Glucose Serum Osmolality Lactic Acid Calcium Total Bilirubin AST ALT Alkaline Phosphatase Creatine Kinase CK-MB (CK-2) CK-MB (CK-2) % Troponin I Serum Total Protein Albumin Globulin Albumin/Globulin Ratio Urine Color Yellow Urine Appearance Clear Urine pH 7.0 Ur Specific [place] 1.015 Urine Protein Trace Urine Glucose (UA) Negative Urine Ketones Trace Urine Blood Negative Urine Nitrite Negative Urine Bilirubin Negative Urine Urobilinogen 0.2 Ur Leukocyte Esterase Negative Urine RBC 0 Urine WBC 0 Ur Epithelial Cells 3-5 Urine Bacteria Rare - EKG/XRAY/CT EKG: Sinus - @81bpm, nl intervals, nl axis, nonspecific ST T wave Chg, Unchanged from - 12/31/16 XRAY: chest - BILATERAL INFILTRATES PER RAD Departure - Departure Clinical Impression: Fever in adult, Bilateral pneumonia, Acute confusional state, Hypoxia Time of Disposition: 17:59 Disposition: Discharge to Home or Self Care Condition: Fair Departure Forms: ED Discharge - Pt. Copy, Patient Portal Self Enrollment Referrals: YULI CANTU MD [Primary Care Provider] - 1-2 Weeks Home Medications: Ambulatory Orders Allopurinol 300 mg PO RIMA-OTH-DAY 12/31/16 Amlodipine Besylate [Norvasc] 2.5 mg PO DAILY 12/31/16 Apixaban [Eliquis] 5 mg PO BID 12/31/16 Aspirin [Aspirin EC] 81 mg PO BEDTIME 12/31/16 Gabapentin 100 mg PO BID 12/31/16 SITagliptin [Januvia] 50 mg PO DAILY 12/31/16 Amiodarone HCl 200 mg PO DAILY 04/19/18 Amitriptyline HCl [Elavil] 25 mg PO DAILY 04/19/18 Cholecalciferol [Vitamin D3] 2,000 unit PO QAM 04/19/18 Famotidine 20 mg PO DAILY 04/19/18 Critical Care Note - Critical Care Note Total Time (mins): 45 Decision To Admit - Decistion To Admit Decision to Admit Reason: Admit from ER Decision to Admit Date: 04/19/18 Decision to Admit Time: 18:00 - CASE DISCUSSED WITH PHILL ALFONSO NP WHO AGREES TO ADMIT
--- NOTE | 2018-04-19 17:35 | RAD ---
EXAM DESCRIPTION: Chest,1 View CLINICAL HISTORY: fever, cough COMPARISON: Chest radiograph dated February 09, 2017 TECHNIQUE: Single upright portable frontal view of the chest FINDINGS: Redemonstration of bilateral axillary susan dissection clips. Calcific atherosclerosis and mild tortuosity noted of the thoracic aorta. Cardiac silhouette and pulmonary vascularity are within normal limits. There is increased hazy opacity in the bilateral lower lung zones which may represent atelectasis versus infiltrate. Linear opacity in the right lower lung zone most likely represent atelectasis. No significant pleural effusion. No pneumothorax. No acute osseous abnormality. IMPRESSION: 1. Increased hazy opacities in the bilateral lower lung zones, left greater than right, may represent atelectasis versus infiltrate. Please correlate clinically. 2. Chronic findings as above. Electronically signed by: Kamlesh Pressley MD 04/19/2018 5:34 PM GEARMAN
[2018-04-19] MEDS ORDERED: AZITHROMYCIN IV 500 MG in SODIUM CHLORIDE 0.9% 250ML 250 ML IVPB ONE (17:55)
[2018-04-19] MEDS ORDERED: SODIUM CHLORIDE 0.9% 250ML 250 ML ONE ×2 (18:00→21:41)
[2018-04-19] MEDS ORDERED: AZITHROMYCIN IV 500 MG VIAL IVPB ONE (18:00)
--- NOTE | 2018-04-19 19:49 | HP ---
SUPERVISING PHYSICIAN: Krystian Iraheta M.D. CHIEF COMPLAINT: Fever and confusion. HISTORY OF PRESENT ILLNESS: This is an 88 year-old female patient who has had approximately 1 week of feeling poorly. She had some vomiting. She also had a dry hacking cough. She saw her primary care physician, Dr. Hernandez, yesterday and was diagnosis with a urinary tract infection and she was started on Macrobid. She has had several doses of that. Approximately 1 year ago she was in the hospital for urosepsis. In the Emergency Room, her chest x-ray showed increased hazy opacities in the bilateral lower lung zones, left greater than right. May represent atelectasis versus infiltrate. Her CBC was 8.9% but she had a left leg shift on differential and her hemoglobin is 12.6 with hematocrit 39.6. Blood gas showed a pCO2 of 39 and pO2 of 73 with a pH of 7.45. O2 sat was 95%. Her electrolytes were basically within normal limits. Glucose was 148. Serum total protein was low at 6.1, lactic acid was 1.1. Urinalysis was basically within normal limits. She was given a liter of fluids in the E. R. and given azithromycin for bibasilar pneumonia most likely community acquired. She has allergies to Ceftriaxone, Levaquin, Meropenem and Penicillin as well as Bactrim. I was called for hospital admission. PAST MEDICAL HISTORY: 1. Atrial fibrillation. 2. Frequent urinary tract infections. 3. Bilateral breast cancer with bilateral mastectomies. 4. Hypertension. 5. Gout. 6. Gastroesophageal reflux disease. 7. Chronic kidney disease. 8. Type 2 diabetes mellitus. 9. Hyperlipidemia. 10. History of deep venous thrombosis. 11. 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 12. Congestive heart failure with mid diastolic dysfunction. Last echocardiogram in 2017 showed an ejection fraction of 55%. PAST SURGICAL HISTORY: 1. Bilateral mastectomies.. 2. Previous right subclavian port placement and removal. 3. Hysterectomy. 4. Tonsillectomy and adenoidectomy. 5. Cataract surgery. 6. Heel surgery with a bone graft from her hip. 7. Back surgery. 8. Partial thyroidectomy. CURRENT MEDICATIONS: Per the EMR and awaiting verification. ALLERGIES: CEPHALOSPORIN, LEVAQUIN, MEROPENEM, PENICILLIN AND BACTRIM. SOCIAL HISTORY: She is . She lives in [place]. She quit smoking over 40 years ago and there is no history of alcohol or ETOH abuse. REVIEW OF SYSTEMS: Positive for fever, chills and general malaise. Negative for weight changes. HEENT: No sinus symptoms, ear pain, visual changes or ear pain. RESPIRATORY: Positive for coughing, wheezing and shortness of breath. CARDIOVASCULAR: Negative for chest pains, palpitations or tachycardia. GASTROINTESTINAL: Positive for nausea and 1 episode of vomiting. Negative for diarrhea or constipation. GENITOURINARY: Positive for dysuria, hematuria and polyuria but has improved over the last 12 hours. MUSCULOSKELETAL: Positive for generalized lower back pain. Negative for myalgias or arthralgias. NEUROLOGIC: Positive for altered mental status and some confusion. Negative for seizures or headache. PHYSICAL EXAMINATION: VITAL SIGNS: Temperature in the E. R. was 102.5, it is now 100. Heart rate 72 , blood pressure 99/52, respiratory rate 18, O2 sat 94% on 2 liters nasal cannula. GENERAL: This is an 88 year-old female patient lying in her hospital bed. She is ill-appearing but is in no acute distress. HEENT: Normocephalic and atraumatic. Pupils are equal and reactive. Oropharynx is clear. NECK: Supple without mass. CHEST: Essentially clear to auscultation bilaterally but she is diminished at the bases. There is equal rise and fall of the chest with inspiration and expiration. CARDIOVASCULAR: Regular rate, slightly irregular rhythm. GASTROINTESTINAL: Abdomen is soft, nondistended, non-tender. Bowel sounds are positive. EXTREMITIES: No clubbing, cyanosis or edema. Bilateral pedal pulses are palpable at +1. NEUROLOGIC: She is awake, alert and oriented times three. Cranial nerves II- XII are grossly intact. LABORATORY: Labs and films are as per History of Present Illness. MICROBIOLOGY: She does have blood cultures pending. ASSESSMENT: 1. Bilateral pneumonia most likely community acquired with hypoxia. Her pO2 on arterial blood gas was 73. 2. Recent urinary tract infection, treated by her primary care physician with Macrobid. 3. Altered mental status that has improved with fluids, most likely it was secondary to #1 and #2. 4. Mild renal insufficiency. 5. History of congestive heart failure without exacerbation. She has mild diastolic dysfunction with an ejection fraction of 55% on her echocardiogram in 2017. 6. Gastroesophageal reflux disease. 7. Diabetes mellitus type 2. 8. Hypertension. 9. Gout. PLAN: We will admit the patient to the hospital. I have initiated the pneumonia guidelines. Will continue the Zithromax as ordered in the Emergency Room and due to her significant allergies, I will add doxycycline to that. I will also order aggressive pulmonary hygiene, including a nebulizer treatment scheduled as needed. I will order labs for in the morning as well as a chest x- ray. She has a PPI for ulcer prophylaxis. She is on Eliquis which will suffice for DVT prophylaxis. She is also on blood sugars a.c. and h.s. with sliding scale NovoLog insulin. I will also start her home medications as soon as her home medications are verified. I have also put her on Guaifenesin. We will monitor closely and follow as needed. Dr. Iraheta is the collaborating physician available for consultation. #[id number] MTDD
[2018-04-19] MEDS ORDERED: ALBUTEROL SULFATE 2.5 MG/3 ML VIAL NEB PRN (20:27)
[2018-04-19] MEDS ORDERED: SODIUM CHLORIDE 0.45% 1000ML 1,000 ML IVS ONE (20:33)
[2018-04-19] MEDS ORDERED: APIXABAN 2.5 MG TAB PO ONE (20:53)
[2018-04-19] MEDS: ASPIRIN (ENTERIC COATED) 81 MG TAB PO SCH (21:03)
[2018-04-19] MEDS: NON-FORMULARY MEDICATION 1 EA MIS (Apixaban [Eliquis] 5 MG) PO SCH (21:03)
[2018-04-19] MEDS: IV SET AND CAP CHANGE INJ INJ SCH (21:03)
[2018-04-19] MEDS: GABAPENTIN 100 MG CAP PO SCH (21:03)
[2018-04-19] MEDS: SODIUM CHLORIDE 0.9% (FLUSH) 10 ML SYG IV SCH (21:05)
[2018-04-19] MEDS ORDERED: GLUCAGON INJ 1 MG VIAL SUBCU PRN (21:17)
[2018-04-19] MEDS ORDERED: DEXTROSE 50% 25 GM/50 ML SYG IV PRN (21:17)
[2018-04-19] MEDS ORDERED: DOXYCYCLINE HYCLATE IV 100 MG VIAL IVPB ONE (21:41)
[2018-04-19] MEDS: DOXYCYCLINE HYCLATE IV 100 MG in SODIUM CHLORIDE 0.9% 250ML 250 ML IVPB SCH (21:56)
[2018-04-19] MEDS: guaiFENesin ER TAB 600 MG TAB PO SCH (21:57)
[2018-04-20] MEDS: PANTOPRAZOLE SODIUM IV 40 MG VIAL IV SCH (06:15)
--- NOTE | 2018-04-20 07:00 | RAD ---
Procedure: XR CHEST 2 VIEWS Exam Date: 04/20/2018 Ordering Provider: PHILL ALFONSO Clinical Indication: Pneumonia Comparison: 04/19/2018 Findings: Surgical clips projecting over both axillary regions. Left mastectomy. Borderline cardiomegaly. Aortic calcification. Subsegmental atelectasis and/or infiltrate in the right middle lobe is improved compared to prior. Lungs are otherwise clear. No pleural effusion. No pneumothorax. No acute osseous abnormality. Impression: 1. Subsegmental atelectasis and/or infiltrate in the right middle lobe is improved compared to prior. Lungs are otherwise clear. Electronically signed by: Ha Dominguez MD 04/20/2018 6:59 AM DIRECTOR OF PHILANTHROPY
[2018-04-20] MEDS: INSULIN LISPRO 100 UNITS/ML PEN SUBCU SCH ×4 (07:22→21:25)
[2018-04-20] MEDS ORDERED: POTASSIUM CHLORIDE 20 MEQ TAB PO ONE (08:53)
[2018-04-20] MEDS ORDERED: SODIUM CHLORIDE 0.9% 250ML 250 ML ONE ×3 (08:56→20:16)
[2018-04-20] MEDS ORDERED: APIXABAN 2.5 MG TAB PO ONE (08:56)
[2018-04-20] MEDS ORDERED: SITagliptin 50 MG TAB PO ONE (08:56)
[2018-04-20] MEDS: ALBUTEROL SULFATE 2.5 MG/3 ML VIAL NEB SCH ×4 (08:57→20:54)
[2018-04-20] MEDS ORDERED: DOXYCYCLINE HYCLATE IV 100 MG VIAL IVPB ONE ×2 (08:57→20:16)
[2018-04-20] MEDS ORDERED: amLODIPine BESYLATE 5 MG TAB ONE (08:57)
[2018-04-20] MEDS: AMIODARONE HCL 200 MG TAB PO SCH (09:02)
[2018-04-20] MEDS: DOXYCYCLINE HYCLATE IV 100 MG in SODIUM CHLORIDE 0.9% 250ML 250 ML IVPB SCH ×2 (09:02→21:25)
[2018-04-20] MEDS: SITagliptin 50 MG TAB PO SCH (09:02)
[2018-04-20] MEDS: NON-FORMULARY MEDICATION 1 EA MIS (Apixaban [Eliquis] 5 MG) PO SCH (09:03)
[2018-04-20] MEDS: GABAPENTIN 100 MG CAP PO SCH ×2 (09:04→21:21)
[2018-04-20] MEDS: FAMOTIDINE 20 MG TAB PO SCH (09:04)
[2018-04-20] MEDS: guaiFENesin ER TAB 600 MG TAB PO SCH ×2 (09:04→21:21)
[2018-04-20] MEDS: amLODIPine BESYLATE 5 MG TAB PO SCH (09:05)
[2018-04-20] MEDS: AMITRIPTYLINE HCL 25 MG TAB PO SCH (09:05)
[2018-04-20] MEDS: SODIUM CHLORIDE 0.9% (FLUSH) 10 ML SYG IV SCH ×2 (09:11→21:26)
--- NOTE | 2018-04-20 11:15 | PN ---
[place] PHYSICIAN: Krystian Iraheta MD DATE: 04/20/18 SUBJECTIVE: The patient is sitting up in bed. She continues to have a fairly nonproductive cough, but she does feel better than she did yesterday. She denies chest pain, nausea, vomiting, diarrhea or constipation. Her is at the bedside and we discussed her plan of care at length. OBJECTIVE: VITAL SIGNS: Temperature 97.8. Pulse rate 65. Blood pressure 106/66. Respiratory rate 18. O2 saturation 96% on 1.5 liters nasal cannula. RESPIRATORY: Essentially clear to auscultation bilaterally, but continues to be diminished at the bases. CARDIAC: Regular rate and rhythm. GASTROINTESTINAL: Abdomen is soft, nondistended, nontender. Bowel sounds are positive. She continues to have mild bilateral CVA tenderness. EXTREMITIES: No cyanosis, clubbing or edema. NEUROLOGIC: Awake, alert and oriented times three. LABORATORY: WBCs 5.8, hemoglobin 10.7, hematocrit 34. There is no shift on differential. Chemistry shows sodium 139, potassium 3.4, chloride 108, carbon dioxide 24, BUN 15, creatinine 0.91, calcium 8.2, serum total protein 4.9, glucose 103. Chest x-ray shows subsegmental atelectasis and/or infiltrate in the right middle lobe, improved compared to prior. Lungs are otherwise clear. All other labs and films have been reviewed via the EMR. ASSESSMENT: 1. Bilateral pneumonia most likely community acquired with hypoxia. Her pO2 on arterial blood gas was 73. 2. Recent urinary tract infection, treated by her primary care physician with Macrobid. 3. Altered mental status that has improved with fluids, most likely it was secondary to #1 and #2. 4. Mild renal insufficiency. 5. History of congestive heart failure without exacerbation. She has mild diastolic dysfunction with an ejection fraction of 55% on her echocardiogram in 2017. 6. Gastroesophageal reflux disease. 7. Diabetes mellitus type 2. 8. Hypertension. 9. Gout. PLAN: We will continue present supportive care. At the family's request, I have discontinued her percussion. We discussed that her x-ray was better and that I added the Macrobid back to her antibiotics as her urinary tract was obviously much better on the Macrobid. She has also received some potassium replacement. I will repeat her lab and chest x-ray in the morning. The family is quite concerned that they do not want her to go home too soon because she had to be CareFlighted out of here about one year ago due to sepsis. I explained to them that we could most likely keep her until Monday morning if she continues to progress like she is. In the meantime, we will continue to monitor the patient closely and follow as needed. Dr. Iraheta is the collaborating physician and available for consultation. #[id number] MTDD
[2018-04-20] MEDS ORDERED: AZITHROMYCIN IV 500 MG VIAL IVPB ONE (17:07)
[2018-04-20] MEDS: NITROFURANTOIN MONOHYDRATE MAC 100 MG CAP PO SCH (17:10)
[2018-04-20] MEDS: AZITHROMYCIN IV 500 MG in SODIUM CHLORIDE 0.9% 250ML 250 ML IVPB SCH (17:24)
[2018-04-20] MEDS: ACETAMINOPHEN 500 MG TAB PO PRN (18:30)
[2018-04-20] MEDS: ASPIRIN (ENTERIC COATED) 81 MG TAB PO SCH (21:22)
[2018-04-20] MEDS: APIXABAN 2.5 MG TAB PO SCH (21:22)
[2018-04-21] MEDS: PANTOPRAZOLE SODIUM IV 40 MG VIAL IV SCH (06:06)
[2018-04-21] MEDS: SODIUM CHLORIDE 0.9% (FLUSH) 10 ML SYG IV PRN (06:06)
--- NOTE | 2018-04-21 07:08 | RAD ---
EXAM: AP CHEST RADIOGRAPH CLINICAL INDICATION: Pneumonia. COMPARISON: Yesterday's chest radiograph at 0553 hours. FINDINGS: Cardiac size and pulmonary vasculature are normal. Unchanged bibasilar scar. No pleural effusions or pneumothorax. Unchanged sequela of bilateral mastectomy and axillary dissection. No pleural effusions. No pneumothorax, pneumomediastinum or free peritoneal gas. No hilar or mediastinal lymphadenopathy. No mediastinal widening. Bones are intact on this single view. IMPRESSION: Unchanged chest radiograph. No pneumothorax. Electronically signed by: Luis Mead MD 04/21/2018 7:07 AM SENIOR ASIC ENGINEER
[2018-04-21] MEDS ORDERED: SODIUM CHLORIDE 0.9% 250ML 250 ML ONE ×3 (07:21→19:18)
[2018-04-21] MEDS ORDERED: DOXYCYCLINE HYCLATE IV 100 MG VIAL IVPB ONE ×2 (07:22→19:19)
[2018-04-21] MEDS: INSULIN LISPRO 100 UNITS/ML PEN SUBCU SCH ×4 (07:33→21:17)
[2018-04-21] MEDS: NITROFURANTOIN MONOHYDRATE MAC 100 MG CAP PO SCH ×2 (07:34→17:19)
[2018-04-21] MEDS: DOXYCYCLINE HYCLATE IV 100 MG in SODIUM CHLORIDE 0.9% 250ML 250 ML IVPB SCH ×2 (08:36→21:18)
[2018-04-21] MEDS: AMIODARONE HCL 200 MG TAB PO SCH (08:39)
[2018-04-21] MEDS: AMITRIPTYLINE HCL 25 MG TAB PO SCH (08:39)
[2018-04-21] MEDS: GABAPENTIN 100 MG CAP PO SCH ×2 (08:40→20:43)
[2018-04-21] MEDS: FAMOTIDINE 20 MG TAB PO SCH (08:40)
[2018-04-21] MEDS: ALLOPURINOL 300 MG TAB PO SCH (08:40)
[2018-04-21] MEDS: guaiFENesin ER TAB 600 MG TAB PO SCH ×2 (08:40→20:43)
[2018-04-21] MEDS: amLODIPine BESYLATE 5 MG TAB PO SCH (08:40)
[2018-04-21] MEDS: APIXABAN 2.5 MG TAB PO SCH ×2 (08:40→20:43)
[2018-04-21] MEDS: SITagliptin 50 MG TAB PO SCH (08:40)
[2018-04-21] MEDS: SODIUM CHLORIDE 0.9% (FLUSH) 10 ML SYG IV SCH ×2 (08:41→20:44)
[2018-04-21] MEDS: ALBUTEROL SULFATE 2.5 MG/3 ML VIAL NEB SCH ×4 (09:13→20:39)
[2018-04-21] MEDS: ACETAMINOPHEN 500 MG TAB PO PRN ×2 (13:47→21:52)
[2018-04-21] MEDS ORDERED: AZITHROMYCIN IV 500 MG VIAL IVPB ONE (16:12)
[2018-04-21] MEDS: AZITHROMYCIN IV 500 MG in SODIUM CHLORIDE 0.9% 250ML 250 ML IVPB SCH (17:39)
--- NOTE | 2018-04-21 20:22 | PN ---
DATE: 04/21/18 SUPERVISING PHYSICIAN: Krystian Iraheta M.D. SUBJECTIVE: The patient is resting in a bedside chair just having finished breakfast, vising with family. She reports that she is feeling much better than yesterday. She seems to be back to her baseline mental status. Discussed at length once again findings of the labs and the plan to continue to follow blood cultures at least for another 24 to 48 hours prior to discharge to see that she is not having any sepsis that results in bacteremia. OBJECTIVE: VITAL SIGNS: Temperature 97.9, pulse 75, blood pressure 123/62, respirations 18, satting 96% on nasal cannula at 2 liters. I's and O's show a positive balance of 1611 with 2686 in, 1075 out. Weight is 66.1 kg. GENERAL: The patient is in no acute distress, resting comfortably. Alert. Visiting with family. CHEST: Lung sounds are fairly clear on the left with the right side with some very faint rhonchi heard to the lateral posterior aspect of the base. No wheezing or rales. HEART: Regular rate and rhythm. ABDOMEN: Soft, non-tender. Positive bowel sounds. EXTREMITIES: Without any clubbing, cyanosis or edema. NEUROLOGIC: She is alert and oriented times three. LABORATORY: White count 6,100, hemoglobin 10.9, hematocrit 34.5, platelet count 160,000. Differential shows a continued left shift. Chemistries show normal electrolytes, chloride is slightly elevated at 112 with BUN of 12, creatinine 0.9. Blood sugars are between 121 and 181. Liver functions are showing to be within normal limits. Magnesium is 1.9. MICROBIOLOGY: Blood cultures continue to be negative at 48 hours. After further research in the clinic chart there appears to be no cultures pending for urine prior to admission. RADIOLOGY: Shows unchanged chest radiograph with no pneumothorax on single view chest per radiology interpretation. ASSESSMENT: 1. Right lower lobe pneumonia, community acquired with the patient being mildly hypoxic on admission with arterial blood gas showing to be at 73 on room air. 2. Recent urinary tract infection having been treated by her primary care physician with Macrobid with current urine showing without any signs of infection. 3. Altered mental status improved with fluids, most likely due to #1 and #2, improving. 4. Mild renal insufficiency returning to baseline after fluids. 5. History of congestive heart failure without exacerbation with a mild diastolic dysfunction with an ejection fraction of 55% on echocardiogram in 2017. 6. Gastroesophageal reflux disease. 7. Diabetes mellitus type 2 showing to be stable. 8. Hypertension. 9. Gout. PLAN: At this point will continue with antibiotics to include doxycycline and Macrobid given her multiple allergies. Will continue with aggressive pulmonary hygiene and monitor blood cultures with anticipation of hopefully being able to discharge tomorrow once adequate time has been allowed to confirm negative blood cultures and the patient continues to show clinical improvement. The patient still has a Velasco in. Will go ahead and do bladder training with anticipation of removing that today. Until then will continue to monitor and treat as needed. #[id number] MTDD
[2018-04-21] MEDS: ASPIRIN (ENTERIC COATED) 81 MG TAB PO SCH (20:44)
[2018-04-22] MEDS: PANTOPRAZOLE SODIUM IV 40 MG VIAL IV SCH (06:15)
[2018-04-22] MEDS ORDERED: SODIUM CHLORIDE 0.9% 250ML 250 ML ONE ×3 (07:34→19:52)
[2018-04-22] MEDS ORDERED: DOXYCYCLINE HYCLATE IV 100 MG VIAL IVPB ONE ×2 (07:35→19:53)
[2018-04-22] MEDS: INSULIN LISPRO 100 UNITS/ML PEN SUBCU SCH ×4 (07:45→21:45)
[2018-04-22] MEDS: NITROFURANTOIN MONOHYDRATE MAC 100 MG CAP PO SCH ×2 (07:46→18:01)
[2018-04-22] MEDS: ALBUTEROL SULFATE 2.5 MG/3 ML VIAL NEB SCH ×4 (07:49→20:54)
[2018-04-22] MEDS: AMITRIPTYLINE HCL 25 MG TAB PO SCH (09:03)
[2018-04-22] MEDS: guaiFENesin ER TAB 600 MG TAB PO SCH ×2 (09:03→20:53)
[2018-04-22] MEDS: FAMOTIDINE 20 MG TAB PO SCH (09:03)
[2018-04-22] MEDS: AMIODARONE HCL 200 MG TAB PO SCH (09:03)
[2018-04-22] MEDS: amLODIPine BESYLATE 5 MG TAB PO SCH (09:03)
[2018-04-22] MEDS: GABAPENTIN 100 MG CAP PO SCH ×2 (09:03→20:53)
[2018-04-22] MEDS: SITagliptin 50 MG TAB PO SCH (09:03)
[2018-04-22] MEDS: APIXABAN 2.5 MG TAB PO SCH ×2 (09:03→20:53)
[2018-04-22] MEDS: DOXYCYCLINE HYCLATE IV 100 MG in SODIUM CHLORIDE 0.9% 250ML 250 ML IVPB SCH ×2 (09:08→20:58)
[2018-04-22] MEDS: SODIUM CHLORIDE 0.9% (FLUSH) 10 ML SYG IV SCH ×2 (09:08→20:58)
--- NOTE | 2018-04-22 16:32 | PN ---
DATE: 04/22/18 SUPERVISING PHYSICIAN: Krystian Iraheta M.D. SUBJECTIVE: The patient feels like she is doing better today. She is not able to sleep very well at night. She does continue to do well with aggressive pulmonary hygiene. She has been afebrile. Again discussed at length with the family the patient's care plan. She has had her Velasco out without any complications since yesterday. OBJECTIVE: VITAL SIGNS: Temperature 97.9, pulse 75, blood pressure 145/76, respirations 18, satting 93% on nasal cannula at 1.5 liters at rest. I's and O' s show a negative balance of 314 with 1386 in, 1700 out. Weight 64.0 kg which is down from previous of 66.1 kg. GENERAL: The patient appears to be in no acute distress, resting comfortably. She is alert. CHEST: Lung sounds are essentially clear today, just slightly diminished towards the bases with no rhonchi or wheezing noted. HEART: Regular rate and rhythm. ABDOMEN: Soft, non- tender. Positive bowel sounds. EXTREMITIES: Without any clubbing, cyanosis or edema today. NEUROLOGIC: She is alert and oriented times three. LABORATORY: White count 5,900, hemoglobin showing to be stable at 10.8 and 33.5 respectively with platelet count 162,000. Differential today shows to be without a left shift since initiation of treatment at admission. Chemistries show a mildly high chloride at 113 with potassium and sodium normal. BUN 11, creatinine 0.86. Blood sugars are between 103 and 153. Calcium 8.7. MICROBIOLOGY: Blood cultures remain negative at 48 hours. ASSESSMENT: 1. Right lower lobe pneumonia, community acquired. 2. History of recent urinary tract infection prior to admission treated on Macrobid. 3. Altered mental status improved with fluids, most likely due to #1 and #2. 4. Mild renal insufficiency returning to baseline after fluids. 5. History of congestive heart failure without signs of exacerbation with a mild diastolic dysfunction with an ejection fraction of 55% on last echocardiogram in 2017. 6. Gastroesophageal reflux disease without any complications. Monitoring. 7. Diabetes mellitus type 2 showing to be stable. Continue to monitor. PLAN: Will anticipate discharging tomorrow. Today, she will benefit from additional pulmonary hygiene and parenteral antibiotics due to her significant allergies and limited choice of medications. Hopefully tomorrow with discharge she will continue with azithromycin for continued treatment of the questionable pneumonia and finish up her Macrobid prescription that was started prior to admission. I have ordered continued assessment and following with Physical Therapy. Will reassess on Monday. Should she show negative continuation on her blood cultures by PCR, certainly can discharge home to continue with outpatient management. Until then will continue to monitor and treat as needed. #[id number] [facility]
[2018-04-22] MEDS ORDERED: AZITHROMYCIN IV 500 MG VIAL IVPB ONE (17:45)
[2018-04-22] MEDS: AZITHROMYCIN IV 500 MG in SODIUM CHLORIDE 0.9% 250ML 250 ML IVPB SCH (18:01)
[2018-04-22] MEDS: IV SET AND CAP CHANGE INJ INJ SCH (20:05)
[2018-04-22] MEDS: ASPIRIN (ENTERIC COATED) 81 MG TAB PO SCH (20:53)
[2018-04-22] MEDS: ACETAMINOPHEN 500 MG TAB PO PRN (20:53)
[2018-04-23] MEDS: SODIUM CHLORIDE 0.9% (FLUSH) 10 ML SYG IV PRN (06:18)
[2018-04-23] MEDS: PANTOPRAZOLE SODIUM IV 40 MG VIAL IV SCH (06:18)
[2018-04-23] MEDS ORDERED: SODIUM CHLORIDE 0.9% 250ML 250 ML ONE (07:51)
[2018-04-23] MEDS ORDERED: DOXYCYCLINE HYCLATE IV 100 MG VIAL IVPB ONE (07:52)
[2018-04-23] MEDS: ALBUTEROL SULFATE 2.5 MG/3 ML VIAL NEB SCH ×2 (08:37→13:13)
[2018-04-23] MEDS: INSULIN LISPRO 100 UNITS/ML PEN SUBCU SCH ×2 (08:44→11:57)
[2018-04-23] MEDS: AMIODARONE HCL 200 MG TAB PO SCH (10:47)
[2018-04-23] MEDS: NITROFURANTOIN MONOHYDRATE MAC 100 MG CAP PO SCH (10:47)
[2018-04-23] MEDS: APIXABAN 2.5 MG TAB PO SCH (10:48)
[2018-04-23] MEDS: guaiFENesin ER TAB 600 MG TAB PO SCH (10:48)
[2018-04-23] MEDS: SITagliptin 50 MG TAB PO SCH (10:48)
[2018-04-23] MEDS: SODIUM CHLORIDE 0.9% (FLUSH) 10 ML SYG IV SCH (10:48)
[2018-04-23] MEDS: FAMOTIDINE 20 MG TAB PO SCH (10:48)
[2018-04-23] MEDS: GABAPENTIN 100 MG CAP PO SCH (10:48)
[2018-04-23] MEDS: AMITRIPTYLINE HCL 25 MG TAB PO SCH (10:48)
[2018-04-23] MEDS: amLODIPine BESYLATE 5 MG TAB PO SCH (10:48)
[2018-04-23] MEDS: ALLOPURINOL 300 MG TAB PO SCH (10:49)
[2018-04-23] MEDS: DOXYCYCLINE HYCLATE IV 100 MG in SODIUM CHLORIDE 0.9% 250ML 250 ML IVPB SCH (10:49)
[2018-04-23 10:50] VITALS: TEMP 98
[2018-04-23] MEDS: ACETAMINOPHEN 500 MG TAB PO PRN (10:52)
[2018-04-23] MEDS ORDERED: BISACODYL TAB 5 MG TAB PO SCH (11:30)
[2018-04-23 14:25] VITALS: BP 120/64; O2SAT 100
--- NOTE | 2018-04-26 10:34 | DS ---
SUPERVISING PHYSICIAN: Mahesh Schultz MD ADMISSION DIAGNOSIS: 1. Bilateral pneumonia most likely community acquired with hypoxia. Her pO2 on arterial blood gas was 73. 2. Recent urinary tract infection, treated by her primary care physician with Macrobid. 3. Altered mental status that has improved with fluids, most likely it was secondary to #1 and #2. 4. Mild renal insufficiency. 5. History of congestive heart failure without exacerbation. She has mild diastolic dysfunction with an ejection fraction of 55% on her echocardiogram in 2017. 6. Gastroesophageal reflux disease. 7. Diabetes mellitus type 2. 8. Hypertension. 9. Gout. DISCHARGE DIAGNOSIS: 1. Right lower lobe pneumonia, community acquired, improving clinically with antibiotic treatment. 2. History of past urinary tract infection prior to admission and treated to completion with Macrobid with no signs of infection on admission with cultures not collected as her urine was showing to be without any significant findings at admission. 3. Altered mental status felt to be secondary to #1, improved with fluids and treatment. 4. Mild renal insufficiency returned to baseline after fluids. 5. History of congestive heart failure without any signs of exacerbation, noted to have a mild diastolic dysfunction with ejection fraction of 55% on last echocardiogram in 2017. 6. Gastroesophageal reflux disease without any complications. 7. Diabetes mellitus type 2 showing to be stable. REASON FOR HOSPITALIZATION: This is an 88 year-old female patient who has had approximately 1 week of feeling poorly. She had some vomiting. She also had a dry hacking cough. She saw her primary care physician, Dr. Hernandez, yesterday and was diagnosis with a urinary tract infection and she was started on Macrobid. She has had several doses of that. Approximately one year ago she was in the hospital for urosepsis. In the Emergency Room, her chest x-ray showed increased hazy opacities in the bilateral lower lung zones, left greater than right. May represent atelectasis versus infiltrate. Her CBC was 8.9% but she had a left leg shift on differential and her hemoglobin is 12.6 with hematocrit 39.6. Blood gas showed a pCO2 of 39 and pO2 of 73 with a pH of 7.45. O2 sat was 95%. Her electrolytes were basically within normal limits. Glucose was 148. Serum total protein was low at 6.1, lactic acid was 1.1. Urinalysis was basically within normal limits. She was given a liter of fluids in the E. R. and given azithromycin for bibasilar pneumonia most likely community acquired. She has allergies to Ceftriaxone, Levaquin, Meropenem and Penicillin as well as Bactrim. I was called for hospital admission. LABORATORY STUDIES: White count on admission was 8,900, at discharge was 5, 900. Hemoglobin and hematocrit were stable and discharge was 10.8 and 33.5 respectively with platelet count at 162,000. Differential did show initial left shift that resolved prior to discharge. Coagulation studies showed normal PT/PTT. Blood gas analysis showed to be was negative except for just mild hypoxemia with a PO2 of 73. pH 7.45 with PCO2 of 39. Saturation 95% on 2 liters nasal cannula. Chemistries on admission showed normal electrolytes with potassium 3.8 with BUN of 17, creatinine 0.83. Liver functions all within normal limits. Her labs showed to be stable. On 04/21 her labs were showing stable electrolytes, potassium 3.7, BUN 12, creatinine 0.8 and again.liver functions were showing to be within normal limits. Blood sugars were well controlled in the 130s to 180s. Urinalysis on admission showed to be without any significant findings, Microscopic revealed no white cels, no red cells, rare bacteria but 3 to 5 epithelials. MICROBIOLOGY: Final blood culture showed no growth at 5 days. RADIOLOGY: Chest x-ray on admission and followed up through hospitalization, initial chest x-ray in the Emergency Room per radiology interpretation showed increased hazy opacities in the bilateral lung zones, left greater than right which could represent atelectasis versus infiltrate. Final x-ray done on per radiology interpretation of AP chest showed unchanged radiographic studies showing cardiac size and pulmonary vasculature normal, unchanged vascular scarring, no pleural effusions, no pneumothorax, no mediastinum, free of peritoneal gas, no hilar mediastinal lymphadenopathy, no mediastinal widening , bones are intact on single view. HOSPITAL COURSE: Ms. Shields was admitted on 04/19/18 with concerns for possible sepsis related to urinary tract infection as she was having some acute mental status change. She had been started on Macrobid in the clinic and that culture ended up showing no growth. On admission, it was felt that she might have pneumonia and she was started on continued treatment. Given the patient's multiple allergies she was started on azithromycin and doxycycline. She did improve clinically and was working with physical therapy without any complications and it was felt that she clinically improved well enough to continue with outpatient management at discharge. PLAN: Ms. Shields was discharged on 04/23/18 with instructions to followup with Dr. Hernandez on 04/27/18 at in the morning at 10:00 AM. She was to resume her home medications as instructed including completing her Macrobid prescription as directed prior to admission. She was to take all her medications as directed. She was encouraged to return to the hospital or call Dr. Hernandez's office should there be concerning symptoms. DISCHARGE DIET: Diabetic. ACTIVITIES: Increase as tolerated. MEDICATIONS: Prescribed at discharge included: 1. Robitussin AC, 5 mLs every 4 hours as needed, #120 mLs, no refills. 2. Doxycycline 100 mg twice a day for 5 days. All other medications prior to admission including Macrobid were continues as prescribed. DISPOSITION: The patient was discharged home to family members including daughter and . CONDITION ON DISCHARGE: Stable and improved. #[id number] [facility]
== END 2018-04-23 17:00 | disposition home or self-care (01) | DRG 194 ==
LOC: ER 16:02 → MS 19:47 → OBSVTOIN 19:47
PROVIDERS: ADMIT Nurse Practitioner Acute Care; ATTEND Nurse Practitioner Acute Care
DX: J18.9 Pneumonia, unspecified organism (principal); I50.32 Chronic diastolic (congestive) heart failure; N28.9 Disorder of kidney and ureter, unspecified; K21.9 Gastro-esophageal reflux disease without esophagitis; E11.9 Type 2 diabetes mellitus without complications; R09.02 Hypoxemia; M10.9 Gout, unspecified; I48.91 Unspecified atrial fibrillation; Z87.440 Personal history of urinary (tract) infections; Z85.3 Personal history of malignant neoplasm of breast; E78.5 Hyperlipidemia, unspecified; Z86.718 Personal history of other venous thrombosis and embolism; Z88.0 Allergy status to penicillin; Z88.1 Allergy status to other antibiotic agents; Z88.8 Allergy status to other drugs, medicaments and biological substances

== ENCOUNTER → 2018-07-05 | Outpatient (CLI) | payer MEDICARE | LOC: GMAE 14:47 | PROVIDERS: ATTEND Family Medicine | DX: R50.9 Fever, unspecified (principal) ==

== ENCOUNTER → 2019-03-08 | Outpatient (CLI) | payer MEDICARE | LOC: GMAE 10:51 | PROVIDERS: ATTEND Family Medicine | DX: I10 Essential (primary) hypertension (principal); E78.5 Hyperlipidemia, unspecified; E11.9 Type 2 diabetes mellitus without complications ==

== ENCOUNTER → 2019-04-22 | Outpatient (CLI) | payer MEDICARE ==
--- NOTE | 2019-04-22 10:46 | CT ---
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 COMPARISON: November 13, 2016 FINDINGS: Left mastectomy and axillary lymph node dissection. Right breast prosthesis. No axillary adenopathy. Atherosclerotic plaque in the normal caliber thoracic aorta. Coronary artery and aortic valvular calcifications. No pericardial effusion. No evidence of acute process in the visualized upper abdomen. Small hiatal hernia. No mediastinal adenopathy. Pulmonary arteries are grossly unremarkable. No pneumothorax. No pleural effusion. Post radiation therapy changes in the anteromedial left upper lobe. Solid noncalcified, irregular left upper lobe pulmonary nodule measuring 8 mm series 4 image 24. Similar right middle lobe scarring. Left lower lobe focal bronchiectasis with bronchial wall thickening and peripheral tree-in-bud airspace disease. Pleural-based rounded opacity in the posterior aspect of the left lower lobe measuring 8 mm series 4 image 92. Chronic T11 superior endplate compression deformity with approximately 30% height loss. Chronic L1 and L2 superior endplate compression deformities with approximately 30-40% height loss. There is no definitive acute fracture or aggressive osseous abnormality identified. IMPRESSION: 1. Two solid noncalcified 8 mm pulmonary nodules. Fleischner criteria does not apply to patients with a known history of malignancy. Recommend CT in three months, PET/CT or tissue sampling (of the more worrisome left upper lobe nodule). 2. Left lower lobe focal bronchiectasis with bronchial wall thickening and associated tree-in-bud airspace disease which is most likely infectious/inflammatory. Recommend attention on follow-up. Electronically signed by: Samy Pratt MD 04/22/2019 10:45 AM [employer]
== END ==
LOC: CT 09:00
PROVIDERS: ATTEND Internal Medicine Hematology & Oncology
DX: C50.412 Malignant neoplasm of upper-outer quadrant of left female breast (principal); R91.8 Other nonspecific abnormal finding of lung field; J47.9 Bronchiectasis, uncomplicated

== ENCOUNTER 2019-05-25 22:10 | Emergency (ER) | payer MEDICARE ==
--- NOTE | 2019-05-25 22:42 | ED.PDOC ---
History of Present Illness - General Chief Complaint: Fever Stated Complaint: C/O fever, N/V onset today, dx with kidney infecti Time Seen by Provider: 05/25/19 22:35 Source: patient, RN notes reviewed, Vital Signs reviewed, EMS notes reviewed, f mark Exam Limitations: no limitations Additional Information: this is an 89-year-old female who presents today with her . She presented via EMS. She reports hiting tonight. She also reports fever that started tonight. Her states that she began treatment for urinary tract infection 2 days ago with Macrodantin. A urine culture was apparently sent by her PCP as welladmits to having a BM today that was within normal limits. She denies any abdominal pain at present. She states that she has not had any respiratory symptoms either. She does admit to a flu shot. She does admit to being somewhat achy. She has consumed Fluids throughout the day and has been holding it down. Review of Systems - Review of Systems Constitutional: States: fever, malaise. Denies: chills EENTM: States: no symptoms reported Respiratory: States: no symptoms reported Cardiology: States: no symptoms reported Gastrointestinal/Abdominal: States: nausea, vomiting. Denies: abdominal pain, constipation, diarrhea Genitourinary: States: dysuria. Denies: discharge, frequency, hematuria Musculoskeletal: States: no symptoms reported Skin: States: no symptoms reported Neurological: States: no symptoms reported Endocrine: States: no symptoms reported Hematologic/Lymphatic: States: no symptoms reported All other Systems: Reviewed and Negative Past Medical History (General) - Patient Medical History Hx Seizures: No Hx Stroke: No Hx Dementia: No Hx Asthma: Yes Hx of COPD: No Hx Cardiac Disorders: No Hx Congestive Heart Failure: No Hx Pacemaker: No Hx Hypertension: Yes Hx Thyroid Disease: No Hx Diabetes: Yes Hx Gastroesophageal Reflux: Yes Hx Renal Disease: No Hx Cancer: Yes - breast Hx of HIV: No Hx Hepatitis C: No Hx MRSA: No Surgical History: other - Vaccination History Hx Tetanus, Diphtheria Vaccination: Yes Hx Influenza Vaccination: Yes - 01/2018 Hx Pneumococcal Vaccination: Yes - 01/20/17 - Social History Hx Tobacco Use: Yes Hx Alcohol Use: No Hx Substance Use: No Feels Threatened In Home Enviroment: No Hx Physical Abuse: No Hx Emotional Abuse: No Family Medical History - Family History Mother Family History: Unknown Living Status: Cause of : Complications of DM Hx Family Asthma: No Hx Family Congestive Heart Failure: Yes Hx Family Hypertension: Yes Hx Family Stroke: No Hx Cardiac Disease: No Hx Family Diabetes: Yes Hx Family Cancer: No Father Living Status: Cause of : Heart Failure Hx Family Asthma: No Hx Family Congestive Heart Failure: Yes Hx Family Hypertension: No Hx Family Stroke: No Hx Cardiac Disease: Yes Hx Family Diabetes: No Hx Family Cancer: Yes Physical Exam - Physical Exam General Appearance: Alert, No apparent distress Eye Exam: bilateral normal ENT Exam: normal ENT inspection, hearing grossly normal, TMs normal, pharynx normal Neck: non-tender, full range of motion, supple, normal inspection, trachea midline Respiratory: chest non-tender, lungs clear, normal breath sounds, no respiratory distress, no accessory muscle use Cardiovascular/Chest: normal peripheral pulses, regular rate, rhythm, no edema, no gallop, no JVD, no murmur Gastrointestinal/Abdominal: normal bowel sounds, non tender, soft, no organomegaly, no pulsatile mass Extremity: normal range of motion, non-tender, normal inspection 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 She will have laboratory evaluation performed. We will go ahead and hydrate and give anti-emetics. We will also obtain a flu test. 05/26/19 00:12 Urine culture has been sent by PCP already. Pending results. 05/26/19 00:12 b 05/26/19 00:25 Updated pt and on all results. Pt is feeling better. Low grade fever is improved. No vomiting during er stay. - Results/Orders Results/Orders: influenza A and B are both negative Laboratory Tests 05/25/19 05/25/19 05/25/19 23:36 23:36 23:36 WBC 8.9 RBC 3.74 L Hgb 10.1 L Hct 31.5 L MCV 84.1 MCH 27.0 MCHC 32.0 L RDW 17.3 H Plt Count 150 MPV 8.2 Absolute Neuts (auto) 7.80 H Absolute Lymphs (auto) 0.30 L Absolute Monos (auto) 0.70 Absolute Eos (auto) 0.00 Absolute Basos (auto) 0.00 Neutrophils % 87.5 H Lymphocytes % 3.9 L Monocytes % 8.2 Eosinophils % 0.1 L Basophils % 0.3 Sodium 137 Potassium 3.5 L Chloride 107 Carbon Dioxide 24 Anion Gap 9.5 L BUN 14 Creatinine 0.98 BUN/Creatinine Ratio 14.3 Random Glucose 136 H Serum Osmolality 276.4 Lactic Acid 0.7 Calcium 8.3 L Total Bilirubin 0.8 AST 21 ALT 16 Alkaline Phosphatase 78 Serum Total Protein 5.9 L Albumin 3.4 Globulin 2.5 Albumin/Globulin Ratio 1.4 Laboratory Last Values WBC 8.9 K/mm3 (4.8-10.8) 05/25/19 23:36 RBC 3.74 M/mm3 (4.20-5.40) L 05/25/19 23:36 Hgb 10.1 gm/dL (12.0-16.0) L 05/25/19 23:36 Hct 31.5 % (36.0-47.0) L 05/25/19 23:36 MCV 84.1 fl (81.0-99.0) 05/25/19 23:36 MCH 27.0 pg (27.0-31.0) 05/25/19 23:36 MCHC 32.0 g/dL (33.0-37.0) L 05/25/19 23:36 RDW 17.3 % (11.5-14.5) H 05/25/19 23:36 Plt Count 150 K/mm3 (130-400) 05/25/19 23:36 MPV 8.2 fl (7.40-10.4) 05/25/19 23:36 Absolute Neuts (auto) 7.80 K/uL (1.8-6.8) H 05/25/19 23:36 Absolute Lymphs (auto) 0.30 K/uL (1.0-3.4) L 05/25/19 23:36 Absolute Monos (auto) 0.70 K/uL (0.2-0.8) 05/25/19 23:36 Absolute Eos (auto) 0.00 K/uL (0.0-0.4) 05/25/19 23:36 Absolute Basos (auto) 0.00 K/uL (0.0-0.1) 05/25/19 23:36 Neutrophils % 87.5 % (42.0-78.0) H 05/25/19 23:36 Lymphocytes % 3.9 % (20.0-50.0) L 05/25/19 23:36 Monocytes % 8.2 % (2.0-9.0) 05/25/19 23:36 Eosinophils % 0.1 % (1.0-5.0) L 05/25/19 23:36 Basophils % 0.3 % (0.0-2.0) 05/25/19 23:36 Sodium 137 mmol/L (135-145) 05/25/19 23:36 Potassium 3.5 mmol/L (3.6-5.0) L 05/25/19 23:36 Chloride 107 mmol/L (101-111) 05/25/19 23:36 Carbon Dioxide 24 mmol/L (21-31) 05/25/19 23:36 Anion Gap 9.5 (12-18) L 05/25/19 23:36 BUN 14 mg/dL (7-18) 05/25/19 23:36 Creatinine 0.98 mg/dL (0.6-1.3) 05/25/19 23:36 BUN/Creatinine Ratio 14.3 (10-20) 05/25/19 23:36 Random Glucose 136 mg/dL (70-105) H 05/25/19 23:36 Serum Osmolality 276.4 mOsm/L (275-295) 05/25/19 23:36 Lactic Acid 0.7 mmol/L (0.5-2.2) 05/25/19 23:36 Calcium 8.3 mg/dL (8.4-10.2) L 05/25/19 23:36 Total Bilirubin 0.8 mg/dL (0.2-1.0) 05/25/19 23:36 AST 21 IU/L (10-42) 05/25/19 23:36 ALT 16 IU/L (10-60) 05/25/19 23:36 Alkaline Phosphatase 78 IU/L (42-121) 05/25/19 23:36 Serum Total Protein 5.9 gm/dL (6.4-8.2) L 05/25/19 23:36 Albumin 3.4 g/dl (3.2-5.5) 05/25/19 23:36 Globulin 2.5 gm/dL (2.3-3.5) 05/25/19 23:36 Albumin/Globulin Ratio 1.4 (1.1-1.9) 05/25/19 23:36 Urine Color Yellow (Yellow) 05/25/19 23:40 Urine Appearance Clear (Clear) 05/25/19 23:40 Urine pH 7.0 (4.5-7.8) 05/25/19 23:40 Ur Specific [place] 1.015 (1.005-1.030) 05/25/19 23:40 Urine Protein Trace mg/dL 05/25/19 23:40 Urine Glucose (UA) Negative mg/dL (Negative) 05/25/19 23:40 Urine Ketones 40 mg/dL (NEGATIVE) H 05/25/19 23:40 Urine Blood Negative (Negative) 05/25/19 23:40 Urine Nitrite Negative 05/25/19 23:40 Urine Bilirubin Negative (NEGATIVE) 05/25/19 23:40 Urine Urobilinogen 0.2 mg/dL (0.2-1.0) 05/25/19 23:40 Ur Leukocyte Esterase Small (Negative) H 05/25/19 23:40 Urine RBC 0 /hpf 05/25/19 23:40 Urine WBC 20-30 /hpf H 05/25/19 23:40 Ur Epithelial Cells 1-3 /hpf 05/25/19 23:40 Urine Bacteria 0 05/25/19 23:40 Departure - Departure Clinical Impression: Fever in adult, Nausea Urinary tract infection Qualifiers: Urinary tract infection type: acute cystitis Hematuria presence: with hematuria Qualified Code(s): N30.01 - Acute cystitis with hematuria Time of Disposition: 00:26 Disposition: Discharge to Home or Self Care Condition: Good Departure Forms: ED Discharge - Pt. Copy, Patient Portal Self Enrollment Instructions: Urinary Tract Infection, Adult (DC) Referrals: YULI CANTU MD [Primary Care Provider] - 1-2 Weeks Prescriptions: Promethazine HCl [Promethazine Hydrochlorid] 25 mg PO Q6HRS #12 tab Home Medications: Ambulatory Orders Allopurinol 300 mg PO RIMA-OTH-DAY 12/31/16 Amlodipine Besylate [Norvasc] 2.5 mg PO DAILY 12/31/16 Apixaban [Eliquis] 5 mg PO BID 12/31/16 Aspirin [Aspirin EC] 81 mg PO BEDTIME 12/31/16 Gabapentin 100 mg PO BID 12/31/16 SITagliptin [Januvia] 50 mg PO DAILY 12/31/16 Amiodarone HCl 200 mg PO DAILY 04/19/18 Amitriptyline HCl [Elavil] 25 mg PO DAILY 04/19/18 Cholecalciferol [Vitamin D3] 2,000 unit PO QAM 04/19/18 Famotidine 20 mg PO DAILY 04/19/18 Doxycycline (Monohydrate) [Doxycycline] 100 mg PO BID 5 Days #10 tab 04/23/18 guaiFENesin W/CODEINE LIQ [Robitussin AC] 5 ml PO Q4HR PRN #120 ml 04/23/18 Promethazine HCl [Promethazine Hydrochlorid] 25 mg PO Q6HRS #12 tab 05/26/19 Additional Instructions: continue Macrobid as directed. Complete all antibiotics. Use Tylenol for fever if needed. Follow up with PCP for culture and sensitivities. Encourage fluids. Return to the ER if any worsening of symptoms for reevaluation.
[2019-05-25] MEDS ORDERED: ACETAMINOPHEN 500 MG TAB PO ONE (22:47)
[2019-05-25] MEDS ORDERED: SODIUM CHLORIDE 0.9% 1000ML 1,000 ML IVS PRN (22:47)
[2019-05-25] MEDS ORDERED: ONDANSETRON INJ 4 MG/2 ML VIAL IV ONE (22:47)
[2019-05-26 00:04] VITALS: BP 128/75; O2SAT 94
[2019-05-26 00:13] VITALS: TEMP 100.3
== END 2019-05-26 00:36 | disposition home or self-care (01) ==
LOC: ER 22:10
DX: N30.01 Acute cystitis with hematuria (principal); R11.2 Nausea with vomiting, unspecified; J45.909 Unspecified asthma, uncomplicated; I10 Essential (primary) hypertension; E11.9 Type 2 diabetes mellitus without complications; K21.9 Gastro-esophageal reflux disease without esophagitis; Z85.3 Personal history of malignant neoplasm of breast; Z87.891 Personal history of nicotine dependence; Z79.82 Long term (current) use of aspirin; Z79.01 Long term (current) use of anticoagulants; Z79.899 Other long term (current) drug therapy
CPT/HCPCS: 80053; 81001; 83605; 85025; 87040; 87086; 87502; J2405; J7030

== ENCOUNTER 2019-06-22 11:04 | Emergency (ER) | payer MEDICARE ==
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
[2019-06-22] MEDS: SODIUM CHLORIDE 0.9% (FLUSH) 10 ML SYG IV PRN (11:38)
[2019-06-22] MEDS: ACETAMINOPHEN 325 MG TAB PO ONE (11:39)
--- NOTE | 2019-06-22 12:26 | RAD ---
EXAM: XR Chest, 2 Views CLINICAL HISTORY: chest pain, s/p Heimlich maneuver TECHNIQUE: Frontal and lateral views of the chest. COMPARISON: 05/10/2018. FINDINGS: Lungs: Chronic obstructive changes present with areas of parenchymal scarring. Mild chronic airway thickening noted. Pleural space: Unremarkable. No pneumothorax. Heart: Stable cardiac shadow. Mediastinum: Unremarkable. Bones/joints: Unremarkable. IMPRESSION: Chronic changes as above. No acute disease. Electronically signed by: Belle Campos MD 06/22/2019 12:[address] ENGINEERING TECHNICIAN
--- NOTE | 2019-06-22 12:29 | RAD ---
EXAM: XR Bilateral Ribs, 3 Views CLINICAL HISTORY: anterior chest wall pain, s/p Heimlich maneuver TECHNIQUE: Frontal and oblique views of the bilateral ribs. COMPARISON: No relevant prior studies available. FINDINGS: Lungs: Stable parenchymal scarring. No consolidation. Pleural space: Unremarkable. No pneumothorax. Bones/joints: Unremarkable. No acute fracture. IMPRESSION: No significant acute abnormality noted. Electronically signed by: Belle Campos MD 06/22/2019 12:28 PM WASTE ELIMINATION
--- NOTE | 2019-06-22 15:08 | CT ---
EXAM: CT Angiography Chest With Intravenous Contrast CLINICAL HISTORY: chest pain, dyspnea, elevated d dimer TECHNIQUE: Axial computed tomographic angiography images of the chest with intravenous contrast. Sagittal and coronal reformatted images were created and reviewed. This CT exam was performed using one or more of the following dose reduction techniques: automated exposure control, adjustment of the mA and/or kV according to patient size, and/or use of iterative reconstruction technique. MIP reconstructed images were created and reviewed. COMPARISON: 04/22/2019. FINDINGS: Pulmonary arteries: Unremarkable. No pulmonary embolism. Aorta: No acute findings. No thoracic aortic aneurysm. Lungs: Limited assessment due to motion artifact with demonstration of septal thickening and probable vascular congestion. Mild subpleural fibrotic changes are present. There are areas of linear scarring or atelectasis. No mass. Pleural space: Unremarkable. No significant effusion. No pneumothorax. Heart: Cardiomegaly. No significant pericardial effusion. No evidence of RV dysfunction. Thyroid: Stable 5 mm right thyroid nodule. Bones/joints: No acute fracture. No dislocation. Soft tissues: Right breast prosthesis. Lymph nodes: Unremarkable. No enlarged lymph nodes. Gallbladder and bile ducts: The gallbladder is dilated and thickened. There is is mild intrahepatic biliary dilatation. IMPRESSION: 1. Mild vascular congestion. 2. No pulmonary embolus noted. 3. Abnormality of the gallbladder identified most consistent with acute cholecystitis. Sonography would better assess. Electronically signed by: Belle Campos MD 06/22/2019 3:07 PM STOCKROOM SUPERVISOR
--- NOTE | 2019-06-22 16:21 | CT ---
EXAM: Abdoment/Pelvis w/o Contrast CLINICAL INDICATION: Abnormal gallbladder on chest CT COMPARISON: Chest CT, same date TECHNIQUE: The CT scan was done using contiguous axial 2.5 mm noncontrast sections through the abdomen and pelvis. This exam was performed according to our departmental dose-optimization program, which includes automated exposure control, adjustment of the mA and/or kV according to patient size and/or use of iterative reconstruction technique. FINDINGS: Visualized portions of the lung bases contain a mild areas of scarring and subsegmental atelectasis. A right breast implant is noted. The gallbladder has a dilated appearance and contains at least one gallstone. The gallbladder wall appears thickened and inflamed. The liver is unremarkable except for a tiny cyst in the left hepatic lobe measuring 9.5 x 7.8 mm. The adrenal glands are unremarkable. The spleen contains a few calcified granulomas but otherwise appears normal. The kidneys and pancreas are unremarkable. The aorta contains atherosclerotic calcifications without evidence of aneurysm. There are no dilated loops of small bowel. The uterus is surgically absent. The appendix appears prominent and edematous measuring up to 11.1 mm in diameter. On previous CT from 05/20/2015 appear normal measuring 4.2 mm. There is also some thickening and inflammation involving the cecum. There is no free air, free fluid, or abscess. IMPRESSION: 1. Cholelithiasis. Thickened and inflamed appearing gallbladder wall suspicious for cholecystitis. 2. The appendix appears enlarged and fluid-filled raising concern for appendicitis. The cecum appears mildly inflamed and thickened. Surgical evaluation is recommended. Electronically signed by: Miguel Shelton MD 06/22/2019 4:20 PM LAUNDROMAT MANAGER
[2019-06-22 17:18] VITALS: BP 189/97; O2SAT 95
[2019-06-22 18:10] VITALS: TEMP 97.7
== END 2019-06-22 18:09 | disposition home or self-care (01) ==
LOC: ER 11:04
DX: S20.219A Contusion of unspecified front wall of thorax, initial encounter (principal); K80.20 Calculus of gallbladder without cholecystitis without obstruction; R06.00 Dyspnea, unspecified; I11.0 Hypertensive heart disease with heart failure; E11.9 Type 2 diabetes mellitus without complications; I50.9 Heart failure, unspecified; K21.9 Gastro-esophageal reflux disease without esophagitis; F03.90 Unspecified dementia, unspecified severity, without behavioral disturbance, psychotic disturbance, mood disturbance, and anxiety; J45.909 Unspecified asthma, uncomplicated; X58.XXXA Exposure to other specified factors, initial encounter; Z85.3 Personal history of malignant neoplasm of breast; Z79.899 Other long term (current) drug therapy; Z79.82 Long term (current) use of aspirin; Z88.8 Allergy status to other drugs, medicaments and biological substances; Z88.1 Allergy status to other antibiotic agents; Z88.0 Allergy status to penicillin; Z88.2 Allergy status to sulfonamides

== ENCOUNTER → 2019-07-09 | Outpatient (CLI) | payer MEDICARE ==
--- NOTE | 2019-07-10 19:57 | NM ---
EXAM DESCRIPTION: Hepatobiliar w/CCK: Nuclear Medicine. CLINICAL HISTORY: ABDOMINAL PAIN COMPARISON: CT abdomen and pelvis June 22. TECHNIQUE: Patient was given 8.4 mCi of technetium 99 M mebrofenin (Choletec) radiopharmaceutical IV. Anterior gamma camera images were obtained of the right upper quadrant at 5 minute intervals for 90 minutes . Since gallbladder was not visualized after 90 minutes hour, the patient returned after 3 hour delay for additional hemorrhage. The patient was then given 1.2 mcg CCK IV infusion over 30-minute interval. Gallbladder ejection fraction was evaluated by measuring change in radioactivity in the gallbladder, over 30 min interval. FINDINGS: After administration of radiopharmaceutical, the entire liver was well visualized. Photopenic area associated with the falciform ligament. Minimal delay in visualization of the intrahepatic ducts. Also minimal delay in visualization of the extrahepatic ducts. After 90 minutes, the gallbladder was not yet visualized. The patient returned after 3 hours and the gallbladder was visualized. After CCK IV infusion began, there was immediate reflux into the stomach. Patient had symptoms of nausea. After 10 minutes of CCK, gallbladder activity reduced 46%. Reduction of 52% of activity after 20 minutes, and reduction of 37% activity 30 minutes after infusion began. IMPRESSION: 1. Delayed visualization of the gallbladder until almost 4.5 hours after review from surgical was administered. No pharmacologic intervention was required. Also minimal delay of visualization of intrahepatic ducts at the start of the examination. 2. Gallbladder ejection fraction reached 52% after 20 minutes, and 37% reduction of activity after 30 minutes. This indicates function of the gallbladder the low-normal range. 3. Reflux into the stomach after administration of CCK. Correlate with clinical findings. Electronically signed by: Mauro Laughlin MD 07/10/2019 7:55 PM RN INTEGRITY
== END ==
LOC: NM 09:00
PROVIDERS: ATTEND Surgery
DX: K80.20 Calculus of gallbladder without cholecystitis without obstruction (principal)
CPT/HCPCS: 78227; A9537

== ENCOUNTER 2019-07-26 12:30 | Day surgery (SDC) | payer MEDICARE ==
[~2019-07-26 12:30] MED LIST: GLYCOPYRROLATE 0.2 MG/ML VIAL ONE; LIDOCAINE 1% 10 ML VIAL INJ ONE; PROPOFOL 200 MG/20 ML VIAL IV ONE
[2019-07-26] MEDS ORDERED: LACTATED RINGERS 1,000 ML ONE (13:19)
[2019-07-26] MEDS ORDERED: LACTATED RINGERS 1,000 ML IVS ONE (13:45)
[2019-07-26 15:25] VITALS: TEMP 97.2
[2019-07-26 16:12] VITALS: BP 152/77; O2SAT 97
== END 2019-07-26 16:10 | disposition home or self-care (01) ==
LOC: AMB 12:30
PROVIDERS: ATTEND Surgery
DX: R13.10 Dysphagia, unspecified (principal); K44.9 Diaphragmatic hernia without obstruction or gangrene; J45.909 Unspecified asthma, uncomplicated; I10 Essential (primary) hypertension; Z88.0 Allergy status to penicillin; Z90.710 Acquired absence of both cervix and uterus; Z90.13 Acquired absence of bilateral breasts and nipples; Z79.01 Long term (current) use of anticoagulants; Z79.899 Other long term (current) drug therapy
CPT/HCPCS: 00731; 36416; 43235; 82948; J3490; J7120

== ENCOUNTER → 2019-11-20 | Outpatient (CLI) | payer MEDICARE ==
--- NOTE | 2019-11-20 15:22 | CT ---
EXAM DESCRIPTION: Chest w/o Contrast CLINICAL HISTORY: 89 years Female, DYSPNEA UNSPECIFIED COMPARISON: 07 August 2019 TECHNIQUE: Transaxial images were obtained without intravenous contrast media. Sagittal and coronal reconstruction was performed. This exam was performed according to our departmental dose-optimization program, which includes automated exposure control, adjustment of the mA and/or kV according to patient size and/or use of iterative reconstruction technique. FINDINGS: The thyroid is unremarkable. No pathologic axillary adenopathy is observed. Surgical clips are observed in the left axilla. A right breast prosthesis is observed. Surgical clips are also observed in the right axilla. No pleural fluid is seen. Calcified granulomas are seen in the spleen. No adrenal masses are detected. Parenchyma scarring is observed in both lung bases. Minimal interstitial infiltrate is observed. There is been an interval improvement in aeration of chest since previous exam. A small gallstone is observed in the gallbladder. Degenerative changes are seen in the thoracic spine. A calcified granulomas observed at the left lung base. A region of nodular infiltrate is observed in the right upper lobe. This is new since the previous exam. IMPRESSION: 1. Interstitial lung disease is observed which is for the most part chronic in nature. Overall there is been an improvement in aeration of the chest. A new somewhat nodular infiltrate is observed in the right upper lobe. Follow-up in 3-6 months should be considered. Electronically signed by: Kamlesh Ibrahim MD 11/20/2019 3:20 PM CDT
== END ==
LOC: LAB.O 13:10
PROVIDERS: ATTEND Internal Medicine Critical Care Medicine
DX: C50.412 Malignant neoplasm of upper-outer quadrant of left female breast (principal); J84.9 Interstitial pulmonary disease, unspecified; J98.4 Other disorders of lung

== ENCOUNTER → 2019-12-09 | Outpatient (CLI) | payer MEDICARE ==
--- NOTE | 2019-12-09 09:38 | CT ---
EXAM DESCRIPTION: Abdomen/Pelvis w/wo Contrast CLINICAL HISTORY: ELEVATED CARCINOEMBRYONIC ANTIGEN COMPARISON: June 22, 2019 TECHNIQUE: Pre and postcontrast CT images of the abdomen and pelvis are obtained This exam was performed according to our departmental dose-optimization program, which includes automated exposure control, adjustment of the mA and/or kV according to patient size and/or use of iterative reconstruction technique . FINDINGS: Visualized lung bases show interstitial thickening in the lower lobes. Focal noncalcified pleural-based nodule in the left lower lobe measuring 9 mm could represent area of round atelectasis. Calcified pulmonary nodule in the right lower lobe is seen. Areas of groundglass attenuation are seen in the lower lung chowdary bilaterally. Right breast implant is seen. Small less than 10 mm hypodensities are seen in the posterior right lobe and left lobe of the liver that are too small to adequately characterize, but likely represents hepatic cysts. No enhancing hepatic lesions are identified. Gallstone in the gallbladder. Mild gallbladder wall thickening again seen. Mild intra and extrahepatic biliary ductal dilatation is again seen with distal common bile duct measuring 10 mm. No mass in the head of the pancreas or pancreatic duct dilatation. Calcifications are seen throughout the spleen. Pancreas is unremarkable. Adrenal glands are unremarkable. Moderate to severe arterial vascular calcifications are seen. Malrotation of the right kidney. Normal cortical enhancement. No nephrolithiasis. No ureteral obstruction. Urinary bladder is poorly distended but unremarkable. Uterus is presumed surgically absent. The ovaries are small. No abnormal adnexal mass. The appendix is partly visualized and unremarkable. Mild increased volume of stool throughout the colon. Occasional scattered diverticuli of the colon. No focal wall thickening. Small hiatal hernia. Small bowel is unremarkable. No mesenteric or omental soft tissue mass or nodules. No pathologically enlarged abdominal or retroperitoneal lymphadenopathy. The osseous structures show no aggressive bony lesions. Degenerative changes of the spine and sacroiliac joints are seen. Age-indeterminate compression fracture deformities from L1 through 4 and T11 are seen. These were present on the previous exam. IMPRESSION: No acute findings on CT of the abdomen and pelvis. Persistent mild dilatation of the gallbladder with probable cholelithiasis and gallbladder wall thickening similar to previous exam. Consider further evaluation with right upper quadrant ultrasound. Patient does have a recent nuclear medicine HIDA exam. Moderate colon constipation or obstipation is seen. Nonspecific increased interstitial changes in the lung bases with areas of groundglass opacification are nonspecific. Imaging features can be seen with COVID-19 pneumonia, though are nonspecific and can occur with a variety of infectious and noninfectious processes. Other findings as described above. Electronically signed by: Lionel Duran MD 12/09/2019 9:36 AM CDT
== END ==
LOC: CT 07:57
PROVIDERS: ATTEND Family Medicine
DX: R97.0 Elevated carcinoembryonic antigen [CEA] (principal); K82.9 Disease of gallbladder, unspecified; K59.00 Constipation, unspecified; R91.8 Other nonspecific abnormal finding of lung field

== ENCOUNTER → 2020-01-21 | Outpatient (CLI) | payer MEDICARE ==
--- NOTE | 2020-01-21 14:38 | RAD ---
EXAM DESCRIPTION: Barium Swallow: Rad-Fluoroscopy. CLINICAL HISTORY: FEEDING DIFFICULTY IN ELDERLY COMPARISON: CT abdomen and pelvis December 08. TECHNIQUE: Fluoroscopy performed by Dr. Laughlin Preliminary Lateral corrosion engineer fluoroscopic image. The patient swallowed barium pill with water. The patient swallowed heavy density barium under fluoroscopic visualization. The images were obtained with the patient standing and horizontal. Patient drank medium density barium through a straw in the semi-prone position. 83 fluoroscopic cine loop images. 6 images single static fluoroscopic images. Total fluoroscopy time was 2.4 minutes.. DAP: 7.27 Gy-cm2.. Dose 41.7 mGy. FINDINGS: Lateral fluoroscopic image shows arthrosis in the cervical spine. Premature spillage into the vallecula prior to main swallow. This was followed by 2-3 swallows with each mouthful. No laryngeal penetration or aspiration. A diverticulum is noted posteriorly in the superior esophagus at the C6-C7 level. Deviation of the upper esophagus to the right by aortic knob of the arch. Primary peristaltic wave is noted to just below the level of the aortic arch. The remainder of the esophagus demonstrates secondary and tertiary contractions and minimal dilation. Reflux to the level of the aortic arch is noted in standing position. Variable sliding hiatal hernia and noted with Schatzki's ring. No significant mucosal lesions were seen. When patient was orally the horizontal position, or in supine position, gastroesophageal reflux increased, almost to the ostium on the proximal esophagus. Stomach was not well distended. Thickening of the gastric folds. Gastroduodenal junction unremarkable. Duodenal bulb with normal expansion. Remainder of the abdomen and unremarkable. IMPRESSION: 1. Premature spillage into the vallecula prior to main swallow. Patient required 3-4 swallows for each mouthful. No laryngeal penetration or aspiration. Posterior esophageal diverticula, directed mostly inferior, at the C6-7 level. 2. Less than 50% of the swallow was from primary peristaltic wave. Secondary and tertiary contractions from the level of the aortic knob through the gastroesophageal junction. Minimal dilation distal esophagus. Sliding hiatal hernia. No mucosal lesions distal esophagus. Gastroesophageal reflux increased to the proximal esophagus when patient supine or rolling in the horizontal position. 3. Thickening of the gastric folds could represent gastritis. Electronically signed by: Mauro Laughlin MD 01/21/2020 2:37 PM CDT
== END ==
LOC: RAD 09:22
PROVIDERS: ATTEND Otolaryngology
DX: K22.4 Dyskinesia of esophagus (principal); K22.5 Diverticulum of esophagus, acquired; K44.9 Diaphragmatic hernia without obstruction or gangrene; K21.9 Gastro-esophageal reflux disease without esophagitis; R63.3 Feeding difficulties; R11.10 Vomiting, unspecified

== ENCOUNTER → 2020-01-25 | Outpatient (CLI) | payer MEDICARE | LOC: LAB.O 10:28 | PROVIDERS: ATTEND Student in an Organized Health Care Education/Training Program | DX: N18.3 Chronic kidney disease, stage 3 (moderate) (principal); N17.9 Acute kidney failure, unspecified; D63.1 Anemia in chronic kidney disease; E55.9 Vitamin D deficiency, unspecified; E78.5 Hyperlipidemia, unspecified; I48.91 Unspecified atrial fibrillation; E11.9 Type 2 diabetes mellitus without complications; N39.0 Urinary tract infection, site not specified; E87.8 Other disorders of electrolyte and fluid balance, not elsewhere classified; I26.99 Other pulmonary embolism without acute cor pulmonale; N25.81 Secondary hyperparathyroidism of renal origin ==

== ENCOUNTER → 2020-02-14 | Outpatient (CLI) | payer MEDICARE | LOC: LAB.O 15:57 | PROVIDERS: ATTEND Internal Medicine Hematology & Oncology | DX: C50.412 Malignant neoplasm of upper-outer quadrant of left female breast (principal) ==

== ENCOUNTER → 2020-02-20 | Outpatient (CLI) | payer MEDICARE ==
--- NOTE | 2020-02-21 07:57 | CT ---
EXAM DESCRIPTION: Chest w/o Contrast CLINICAL HISTORY: 89 years, Female, OTHER NONSPEC ABNORMAL FINDING OF LUNG FIELD COMPARISON: November 20, 2019, August 07, 2019, April 22, 2019 TECHNIQUE: Thin-section noncontrast axial CT images are obtained according to our protocol. Reconstructed MPR images are created and reviewed as well. This exam was performed according to our departmental dose-optimization program, which includes automated exposure control, adjustment of the mA and/or kV according to patient size and/or use of iterative reconstruction technique. FINDINGS: Soft tissue images demonstrate apparent absence of the left breast and large breast implant noted anterior to the chest wall on the right. Great vessel, aortic, as well as tracheal calcification noted with minimal coronary artery calcification. No pericardial effusion noted. The hilar and mediastinal structures and thoracic inlet are normal. Previous bilateral axillary dissection noted. Below the diaphragm small granulomatous calcifications within the spleen noted and hepatic parenchymal density slightly prominent in the upper normal range. Tiny stone dependently in the distended gallbladder suspected. Left lung demonstrates linear scarring and atelectasis in the anterior and posterior lung base with persistent approximate 1 cm area of pleural nodularity that is unchanged back to April 2019 examination. Less inflammatory change at the lung bases is noted with mild scarring in the anterior left apex and upper lung field stable and unchanged as well. Right lung demonstrates a clear apical region and the small subpleural area of nodularity in the lateral right upper lung field has cleared since most recent November examination. There is persistent scarring/atelectasis in the peripheral mid lung field unchanged in comparison to multiple prior studies. Patchy areas of subtle solid and groundglass opacity seen in July 2019 study have essentially cleared with further improvement evident since November 2019 study. There is mild subpleural interstitial stranding is persistent in the medial and lateral right lung base but improved from most recent prior studies. No further workup at this time recommended. New dense infiltrates, new groundglass opacity or new pleural effusions or mass is not apparent. IMPRESSION: 1. Much improved appearance of the lung chowdary bilaterally particularly in comparison to more remote studies dating back to April 2019. There is persistent linear scarring and/or atelectasis in the anterior apical region and less extensive changes in the lung bases on the left with persistent stable 1 cm pleural-based nodularity unchanged. 2. On the right clearing of nodular changes in the right upper lobe with persistent scarring/atelectasis in the midlung field and lung bases, all improved from more remote studies. 3. Consider one-year follow-up examination for long-term stability in comparison to multiple prior studies. 4. 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 Electronically signed by: Mahesh Anaya MD 02/21/2020 7:55 AM CDT
== END ==
LOC: CT 10:00
PROVIDERS: ATTEND Internal Medicine Critical Care Medicine
DX: R91.8 Other nonspecific abnormal finding of lung field (principal); J98.11 Atelectasis; J98.4 Other disorders of lung; Z98.82 Breast implant status; Z98.890 Other specified postprocedural states

== ENCOUNTER → 2020-03-24 | Outpatient (CLI) | payer MEDICARE | LOC: GMAE 15:04 | PROVIDERS: ATTEND Family Medicine | DX: N30.00 Acute cystitis without hematuria (principal) ==

== ENCOUNTER → 2020-03-27 | Outpatient (CLI) | payer MEDICARE | LOC: GMAE 10:26 | PROVIDERS: ATTEND Family Medicine | DX: M06.9 Rheumatoid arthritis, unspecified (principal); I10 Essential (primary) hypertension; E55.9 Vitamin D deficiency, unspecified; E11.9 Type 2 diabetes mellitus without complications ==

== ENCOUNTER → 2020-05-05 | Outpatient (CLI) | payer MEDICARE | LOC: GMAE 11:10 | PROVIDERS: ATTEND Family Medicine | DX: I10 Essential (primary) hypertension (principal) ==